=== PATIENT | female | born 1945 | race Caucasian/White ===

== ENCOUNTER → 2017-03-04 | Outpatient (REF) | payer MEDICARE, OTHER ==
[~2017-03-04] MED LIST: ADVAIR INH; ASPIRIN PO; DICY10EL OR; EFFE75CA75 OR; INHALER INH; PRIL20CA OR; SYNTHROID PO; VICO5TAB OR; ZOCO40TA OR; albuterol inhaler INH
[2017-03-04 16:38] LABS: BASO % 0.2 % (0.0-1.0); EOS % 0.1 % (0.0-3.0); LARGE UNSTAINED CELL # 0.1 K/mm3 (0.0-0.4); LARGE UNSTAINED CELL % 0.5 % (0.0-4.0); LYMPH # 0.6 K/mm3 (1.5-4.5); LYMPH % 5.9 % (24.0-44.0); MEAN CORPUSCULAR HEMOGLOBIN 30.7 pg (27.0-33.0); MEAN CORPUSCULAR HGB CONC 33.8 g/dl (32.0-36.5); MEAN CORPUSCULAR VOLUME 90.7 fl (80.0-96.0); MONO # 0.3 K/mm3 (0.0-0.8); MONO % 3.4 % (0.0-5.0); NEUTROPHILS # 8.4 K/mm3 (1.8-7.7); NEUTROPHILS % 89.9 % (36.0-66.0); PLATELET COUNT, AUTOMATED 194 k/mm3 (150-450); RED CELL DISTRIBUTION WIDTH 13.1 % (11.5-14.5); WHITE BLOOD COUNT 9.4 K/mm3 (4.0-10.0)
[2017-03-04 17:09] LABS: ERYTHROCYTE SEDIMENTATION RATE 7 mm/hr (0-30)
[2017-03-04 18:39] LABS: URIC ACID 3.8 MG/DL (2.6-6.0)
[2017-03-08 00:06] LABS: Lyme Disease IgG/IgM Antibodie <0.91 ISR (0.00-0.90); Lyme Disease IgM Ab Quantitati <0.80 index (0.00-0.79)
== END ==
LOC: M LABDRAW1 15:54
PROVIDERS: ATTEND Physician Assistant Surgical
DX: M17.12 Unilateral primary osteoarthritis, left knee (principal)

== ENCOUNTER → 2017-07-15 | Outpatient (CLI) | payer MEDICARE, OTHER ==
--- NOTE | 2017-07-15 11:28 | REPMRS ---
Patient History The patient states she has not had a clinical breast exam in over a year. Patient is postmenopausal. Family history of ovarian cancer in mother at age 66. Took hormonal contraceptives for 3 years. Took unspecified hormones for 8 years. Digital Mammo Screening Bilat: July 15, 2017 - Exam #: [id number] Bilateral CC and MLO view(s) were taken. Technologist: Maria Luz Polanco, Technologist Prior study comparison: June 23, 2016, digital woman screen mammo, performed at [facility]. July 09, 2015, bilateral digital mammo screening bilat performed at [facility]. June 14, 2014, bilateral bilat screen digital mammo, performed at [facility] ([facility]). June 01, 2013, bilateral bilat screen digital mammo, performed at [facility] ([facility]). FINDINGS: There are scattered fibroglandular densities. There has been no change in the appearance of the mammogram from the prior studies. There is a mild amount of residual fibroglandular tissue which is fairly symmetric. There is no interval development of dominant mass, architectural distortion, or clustered microcalcification suggestive of malignancy. There are bilateral benign arterial calcifications noted. Scattered lymph nodes are seen in the axillae. Large coarse benign appearing calcification is present on the left, unchanged. No significant changes when compared with prior studies. ASSESSMENT: BI-RADS/ACR category 2 mammogram. Benign finding(s). Recommendation Routine screening mammogram in 1 year (for women over age 40). This mammogram was interpreted with the aid of an FDA-approved computer-aided dectection system. A. Negative x-ray reports should not delay biopsy if a dominant or clinically suspicious mass is present. B. Four to eight percent of cancers are not identified by mammography. C. Adenosis and dense breast may obscure an underlying neoplasm. Electronically Signed By: Martín Fontenot MD 07/15/17 [id number]
== END ==
LOC: M RAD 09:29
PROVIDERS: ATTEND Internal Medicine
DX: Z12.31 Encounter for screening mammogram for malignant neoplasm of breast (principal); Z78.0 Asymptomatic menopausal state

== ENCOUNTER → 2017-12-29 | Outpatient (REF) | payer MEDICARE, OTHER ==
[2017-12-29 19:02] LABS: RHEUMATOID FACTOR QUANT < 10.0 IU/ML (<15.0)
[2017-12-29 19:21] LABS: VITAMIN B12 LEVEL 441 PG/ML (247-911)
[2018-01-04 00:06] LABS: CYCLIC CITRULLINATED PEPTIDE 5 units (0-19)
== END ==
LOC: M LAB REF 17:10
DX: R53.83 Other fatigue (principal); M25.50 Pain in unspecified joint
CPT/HCPCS: 82607

== ENCOUNTER 2018-02-16 19:35 | Emergency (ER) | payer MEDICARE, OTHER ==
[2018-02-16 20:43] LABS: HEMOGLOBIN 13.2 g/dl (12.0-15.5); MEAN CORPUSCULAR HEMOGLOBIN 30.9 pg (27.0-33.0); MEAN CORPUSCULAR HGB CONC 33.8 g/dl (32.0-36.5); MEAN CORPUSCULAR VOLUME 91.3 fl (80.0-96.0); PLATELET COUNT, AUTOMATED 141 10^3/uL (150-450); RED BLOOD COUNT 4.27 10^6/uL (4.00-5.40); RED CELL DISTRIBUTION WIDTH 12.6 % (11.5-14.5); WHITE BLOOD COUNT 8.3 10^3/uL (4.0-10.0)
[2018-02-16 20:44] LABS: ADD MANUAL DIFFER YES; DIFF SLIDE NUMBER 404; POSITIVE DIFF POS FLAG
[2018-02-16 21:10] LABS: LACTIC ACID SEPSIS PROTOCOL 0.8 MMOL/L (0.4-2.0)
[2018-02-16 21:12] LABS: ALBUMIN 3.2 GM/DL (3.2-5.2); ALBUMIN/GLOBULIN RATIO 1.07 (1.00-1.93); ALKALINE PHOSPHATASE 72 U/L (45-117); ALT/SGPT 17 U/L (12-78); ANION GAP 11 MEQ/L (8-16); AST/SGOT 17 U/L (7-37); BILIRUBIN,DIRECT 0.1 MG/DL (0.0-0.2); BILIRUBIN,TOTAL 0.5 MG/DL (0.2-1.0); BLOOD UREA NITROGEN 12 MG/DL (7-18); CALCIUM LEVEL 8.2 MG/DL (8.8-10.2); CARBON DIOXIDE LEVEL 25 MEQ/L (21-32); CHLORIDE LEVEL 102 MEQ/L (98-107); CPK CREATINE PHOSPHOKINASE 50 U/L (26-192); CREATININE FOR GFR 0.94 MG/DL (0.55-1.30); GLOMERULAR FILTRATION RATE > 60.0 (>39); GLUCOSE, FASTING 128 MG/DL (70-100); POTASSIUM SERUM 3.9 MEQ/L (3.5-5.1); SODIUM LEVEL 138 MEQ/L (136-145); TOTAL PROTEIN 6.2 GM/DL (6.4-8.2); TROPONIN I < 0.02 NG/ML (< 0.10)
[2018-02-16 21:13] LABS: CK-MB VALUE MASS < 1.0 NG/ML (<3.6)
[2018-02-16 21:15] LABS: ATYPICAL LYMPH 2 % (0-5); LYMPHOCYTES 4 % (16-52); MONOCYTES 3 % (0-8); NEUTROPHILS 91 % (35-75)
[2018-02-16 21:16] LABS: PLATELET ESTIMATE DECREASED (NORMAL)
[2018-02-16 21:17] LABS: TOXIC VACUOLATION 1+
[2018-02-16] MEDS: NS 1,000 ML IV (21:38)
[2018-02-16] MEDS: ACETAMINOPHEN 325 MG TAB PO (21:44)
== END 2018-02-16 23:17 | disposition home or self-care (01) ==
LOC: M ED 19:35
DX: G52.9 Cranial nerve disorder, unspecified (principal); J45.909 Unspecified asthma, uncomplicated; E78.5 Hyperlipidemia, unspecified; E03.9 Hypothyroidism, unspecified; K21.9 Gastro-esophageal reflux disease without esophagitis; Z79.899 Other long term (current) drug therapy; Z79.890 Hormone replacement therapy; Z79.82 Long term (current) use of aspirin
CPT/HCPCS: 71046

== ENCOUNTER 2018-03-08 12:43 | Emergency (ER) | payer MEDICARE, OTHER ==
[2018-03-08] MEDS: NS 1,000 ML IV (13:02)
[2018-03-08 13:27] LABS: BASO % 0.5 % (0.0-1.0); EOS % 0.2 % (0.0-3.0); HEMATOCRIT 39.6 % (36.0-47.0); HEMOGLOBIN 13.3 g/dl (12.0-15.5); IMMATURE GRANULOCYTE % 0.5 % (0-3.0); LYMPH % 2.5 % (24.0-44.0); MEAN CORPUSCULAR HEMOGLOBIN 30.1 pg (27.0-33.0); MEAN CORPUSCULAR HGB CONC 33.6 g/dl (32.0-36.5); MEAN CORPUSCULAR VOLUME 89.6 fl (80.0-96.0); MONO # 0.4 10^3/uL (0.0-0.8); MONO % 6.1 % (0.0-5.0); NEUTROPHILS # 5.5 10^3/uL (1.8-7.7); NEUTROPHILS % 90.2 % (36.0-66.0); PLATELET COUNT, AUTOMATED 139 10^3/uL (150-450); RED BLOOD COUNT 4.42 10^6/uL (4.00-5.40); RED CELL DISTRIBUTION WIDTH 12.8 % (11.5-14.5); WHITE BLOOD COUNT 6.1 10^3/uL (4.0-10.0)
[2018-03-08] MEDS: ONDANSETRON 4MG/2ML VIAL (J2405) IV (13:35)
[2018-03-08] MEDS: GASTROGRAFIN SOLUTION 30ML PO ×2 (13:35→14:10)
[2018-03-08 13:51] LABS: ALBUMIN 3.1 GM/DL (3.2-5.2); ALBUMIN/GLOBULIN RATIO 0.91 (1.00-1.93); ALKALINE PHOSPHATASE 48 U/L (45-117); ALT/SGPT 19 U/L (12-78); ANION GAP 7 MEQ/L (8-16); AST/SGOT 34 U/L (7-37); BILIRUBIN,DIRECT < 0.1 MG/DL (0.0-0.2); BILIRUBIN,TOTAL 0.5 MG/DL (0.2-1.0); BLOOD UREA NITROGEN 6 MG/DL (7-18); CALCIUM LEVEL 8.6 MG/DL (8.8-10.2); CARBON DIOXIDE LEVEL 27 MEQ/L (21-32); CHLORIDE LEVEL 103 MEQ/L (98-107); CREATININE FOR GFR 0.95 MG/DL (0.55-1.30); GLOMERULAR FILTRATION RATE > 60.0 (>39); GLUCOSE, FASTING 107 MG/DL (70-100); LIPASE 105 U/L (73-393); POTASSIUM SERUM 3.9 MEQ/L (3.5-5.1); SODIUM LEVEL 137 MEQ/L (136-145); TOTAL PROTEIN 6.5 GM/DL (6.4-8.2)
[2018-03-08 14:07] LABS: LYMPH # 0.2 10^3/uL (1.5-4.5); POSITIVE DIFF POS FLAG
[2018-03-08] MEDS ORDERED: ISOVUE-370 76% 100ML VIAL (Q9967) As Ordered (15:21)
[2018-03-08] MEDS: ACETAMINOPHEN TAB 650MG DOSE (2X325MG) PO (16:12)
[2018-03-08] MEDS: metroNIDAZOLE (FLAGYL) 500 MG TAB PO (17:00)
[2018-03-08] MEDS: CIPROFLOXACIN 500 MG TAB PO (17:00)
== END 2018-03-08 18:00 | disposition home or self-care (01) ==
LOC: M ED 12:43
DX: K52.9 Noninfective gastroenteritis and colitis, unspecified (principal); E78.5 Hyperlipidemia, unspecified; J44.9 Chronic obstructive pulmonary disease, unspecified; K21.9 Gastro-esophageal reflux disease without esophagitis; F41.9 Anxiety disorder, unspecified; F32.9 Major depressive disorder, single episode, unspecified; K57.30 Diverticulosis of large intestine without perforation or abscess without bleeding; Z79.82 Long term (current) use of aspirin; Z79.899 Other long term (current) drug therapy
CPT/HCPCS: Q9963

== ENCOUNTER → 2018-07-17 | Outpatient (CLI) | payer MEDICARE, OTHER | LOC: M RAD 08:34 | DX: Z12.31 Encounter for screening mammogram for malignant neoplasm of breast (principal); Z92.0 Personal history of contraception; Z92.29 Personal history of other drug therapy; Z80.41 Family history of malignant neoplasm of ovary | CPT/HCPCS: 77067 ==

== ENCOUNTER → 2020-02-25 | Outpatient (REF) | payer MEDICARE, OTHER ==
[~2020-02-25] MED LIST changes: +CIPR-249 PO; +DICY10CA13; +FLAG500T PO; +LOSARTAN-HCTZ; +PRIM50TA6; +SYNT50TA; +VALS40TA9; +ZOFR4TAB14 PO
== END ==
LOC: M LAB REF 14:45
PROVIDERS: ATTEND Physician Assistant Medical
DX: J02.9 Acute pharyngitis, unspecified (principal)

== ENCOUNTER 2020-08-13 01:23 | Observation (INO) | payer MEDICARE, OTHER ==
[~2020-08-13] VITALS: Ht 160 cm; Wt 91.0 kg
[~2020-08-13 01:23] MED LIST changes: -SYNT50TA; +SYNT50TA PO; -ZOCO40TA OR; +ZOCO40TA PO
[2020-08-13 03:05] LABS: HEMATOCRIT 42.8 % (36.0-47.0); HEMOGLOBIN 13.5 g/dl (12.0-15.5); MEAN CORPUSCULAR HEMOGLOBIN 29.7 pg (27.0-33.0); MEAN CORPUSCULAR HGB CONC 31.5 g/dl (32.0-36.5); MEAN CORPUSCULAR VOLUME 94.1 fl (80.0-96.0); PLATELET COUNT, AUTOMATED 173 10^3/uL (150-450); RED BLOOD COUNT 4.55 10^6/uL (4.00-5.40); WHITE BLOOD COUNT 5.3 10^3/uL (4.0-10.0)
--- NOTE | 2020-08-13 03:11 | REPVR ---
PROCEDURE INFORMATION: Exam: CT Head Without Contrast Exam date and time: 08/13/2020 2:19 AM Age: 75 years old Clinical indication: Dizziness; Additional info: Vertigo TECHNIQUE: Imaging protocol: Computed tomography of the head without contrast. Radiation optimization: All CT scans at this facility use at least one of these dose optimization techniques: automated exposure control; mA and/or kV adjustment per patient size (includes targeted exams where dose is matched to clinical indication); or iterative reconstruction. COMPARISON: CT Head without contrast 09/30/2013 9:33 AM FINDINGS: Brain: There is slight prominence of the peripheral sulci. The magallanes and white matter is within normal limits. Cerebral ventricles: There is slight prominence of the central ventricular system. Bones/joints: Unremarkable. No acute fracture. Paranasal sinuses: Visualized sinuses are unremarkable. No fluid levels. Mastoid air cells: Visualized mastoid air cells are well aerated. Soft tissues: Unremarkable. IMPRESSION: There has been little change from 09/30/2013 with minimal atrophic change. No acute interval intracranial process is identified. Electronically signed by: Patrick Staley On 08/13/2020 03:11:09 AM
[2020-08-13 03:46] LABS: ALBUMIN 3.6 GM/DL (3.2-5.2); ALT/SGPT 21 U/L (12-78); BILIRUBIN,TOTAL 0.5 MG/DL (0.2-1.0); BLOOD UREA NITROGEN 15 MG/DL (7-18); CALCIUM LEVEL 8.7 MG/DL (8.8-10.2); CARBON DIOXIDE LEVEL 26 MEQ/L (21-32); CHLORIDE LEVEL 109 MEQ/L (98-107); CREATININE FOR GFR 0.86 MG/DL (0.55-1.30); GLOMERULAR FILTRATION RATE > 60.0 (>39); GLUCOSE, FASTING 105 MG/DL (70-100); POTASSIUM SERUM 3.5 MEQ/L (3.5-5.1); SODIUM LEVEL 141 MEQ/L (136-145); TOTAL PROTEIN 6.4 GM/DL (6.4-8.2)
[2020-08-13] MEDS ORDERED: CETACAINE SPRAY 5GM As Ordered ONE (05:57)
[2020-08-13] MEDS ORDERED: Physical Therapy (06:11)
[2020-08-13] MEDS: ADVAIR HFA 230/21MCG INHALER INH SCH ×2 (08:00→19:48)
[2020-08-13] MEDS ORDERED: ONDANSETRON 4MG/2ML VIAL IV ONE (08:15)
[2020-08-13] MEDS ORDERED: MECLIZINE 25 MG TABLET PO ONE (12:15)
[2020-08-13] MEDS ORDERED: PROP10TA56 PO (13:26)
[2020-08-13] MEDS ORDERED: ESCI20TA PO (13:26)
[2020-08-13] MEDS ORDERED: ADV250INH INH (13:26)
[2020-08-13] MEDS ORDERED: CALC-358 PO (13:26)
[2020-08-13] MEDS ORDERED: CULT10CA4 PO (13:28)
[2020-08-13] MEDS ORDERED: ASCO500T PO (13:28)
[2020-08-13] MEDS ORDERED: AIRB1CHW PO (13:28)
[2020-08-13 13:34] LABS: RSV AMPLIFICATION NEGATIVE (NEGATIVE)
[2020-08-13] MEDS ORDERED: SIMVASTATIN 20 MG TAB PO ONE (14:00)
--- NOTE | 2020-08-13 14:10 | HPE ---
HISTORY AND PHYSICAL DATE OF ADMISSION: 08/13/2020 CHIEF COMPLAINT: Vertigo. HISTORY: Patient, a 75-year-old woman, was in her usual state of health until yesterday. She visited her massage therapist. As she repositioned rolling over on the cot, she did experience intense vertigo, which was short lived, not associated with headache, numbness, tingling, nausea. She was able to drive herself home and remained essentially asymptomatic until early hours this morning and developed vertigo again with rolling over. Came to the emergency department (ED) for evaluation and was evaluated and treated in the ED by Dr. Dunn. When the patient was unable to demonstrate after physical therapy attempt at otolith repositioning/Aicha-Hallpike maneuvers to achieve demonstration of safe ambulation, decision was made to admit patient for observation with continued attempt by physical therapy to achieve resolution of her symptoms before discharge home. MEDICAL HISTORY: Her current primary care physician (PCP) is Dr. Dinah Nunez. CURRENT MEDICATIONS: - Lexapro 20 mg a day - levothyroxine 50 mcg a day - propranolol immediate release 10 mg twice a day - Advair 250/50 one inhalation twice a day - simvastatin 40 mg daily Presumably, diagnoses include chronic obstructive pulmonary disease (COPD)/asthma, hypercholesterolemia, hypothyroidism, and anxiety/depression. PAST SURGICAL HISTORY: 1. Hysterectomy, presumably for benign disease. 2. 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 That surgery was performed in 2010. PAST MEDICAL HISTORY: 1. History of gastroesophageal reflux disease (GERD). 2. COPD. 3. Depression. FAMILY HISTORY: Noncontributory at this time. REVIEW OF SYSTEMS: She has no headache, no nausea, no change in vision, no numbness, no extremity weakness. No cough, chest pain, nausea, vomiting, diarrhea. No joint pains. No skin rashes. No recent falls or head injuries. No history of transient ischemic attack (TIA) or stroke. No history of myocardial infarction (MS). PHYSICAL EXAMINATION: Vital signs: Blood pressure 125/58, pulse 69 and regular, respiratory rate is 18. Oxygen saturation is 92% on room air. HEENT: Normocephalic, atraumatic. Pupils equal, round and reactive to light. Oropharynx shows no mucosal lesions. There is no neck mass. No thyroid enlargement is noted. No bruits are heard. Lungs show equal expansion without wheezing, rales, or rhonchi. Heart regular rate and rhythm. A 1/6 systolic murmur noted at the base without radiation. Abdomen obese, nontender. No mass or guarding. Extremities s how no edema. No calf tenderness. Full range of motion. Neurologic: She is alert, oriented, pleasant, cooperative. Speech is clear. Facies symmetric. Vertigo is demonstrated to be induced by rotatory movements earlier today. Manager Talent are equal. She sits unaided with no tilting as long as she moves slowly. Reflexes are physiologic with downgoing toes bilaterally. Sensory examination is unremarkable. LABORATORY DATA: So far, serology shows negative CoV-2, negative influenza A and B screen. Chemistries show electrolytes are remarkable only for a slightly elevated chloride at 109, anion gap of 9, glucose 105. TSH was 4.680. Hemoglobin 13.5, white count 5300. Differential was not requested. IMAGING: Shows brain CT with no change. Minimal atrophic changes from a study done in 2014. IMPRESSION: Movement-triggered vertigo that is brief in nature consistent with benign paroxysmal positional vertigo. Since when she made an attempt to stand she tilted backward, it was deemed unsafe for her to go home unaccompanied. Therefore, admission to observation status is recommended. Patient is agreeable. Patient will be admitted to hospitalist service. Dr. Stout.
[2020-08-13 16:00] VITALS: BP 134/80
[2020-08-13] MEDS: ACETAMINOPHEN 325 MG TAB PO PRN (18:41)
[2020-08-13 22:00] VITALS: BP 133/79
[2020-08-14 06:00] VITALS: BP 141/73
[2020-08-14] MEDS ORDERED: LEVOTHYROXINE 50MCG TABLET (0.05MG) PO SCH (06:00)
[2020-08-14 06:47] LABS: HEMATOCRIT 41.8 % (36.0-47.0); MEAN CORPUSCULAR HGB CONC 31.1 g/dl (32.0-36.5); MEAN CORPUSCULAR VOLUME 96.5 fl (80.0-96.0); PLATELET COUNT, AUTOMATED 149 10^3/uL (150-450); RED BLOOD COUNT 4.33 10^6/uL (4.00-5.40); WHITE BLOOD COUNT 3.5 10^3/uL (4.0-10.0)
[2020-08-14 07:33] LABS: CALCIUM LEVEL 8.7 MG/DL (8.8-10.2); CREATININE FOR GFR 1.01 MG/DL (0.55-1.30); FREE THYROXINE INDEX 3.2 % (1.3-4.8); POTASSIUM SERUM 4.2 MEQ/L (3.5-5.1); THYROID STIMULATING HORMONE 1.47 uIU/ML (0.358-3.740); THYROXINE (T4) 8.2 UG/DL (4.5-12.0)
[2020-08-14] MEDS: ADVAIR HFA 230/21MCG INHALER INH SCH (08:44)
[2020-08-14] MEDS ORDERED: PROPRANOLOL 10 MG TAB PO SCH (09:00)
[2020-08-14] MEDS ORDERED: ESCITALOPRAM OXALATE 10 MG TAB (LEXAPRO) PO SCH (09:00)
[2020-08-14] MEDS: ACETAMINOPHEN 325 MG TAB PO PRN (09:29)
[2020-08-14 09:46] VITALS: BP 141/73
[2020-08-14] MEDS ORDERED: MECLIZINE 25 MG TABLET PO PRN (11:15)
[2020-08-14] MEDS ORDERED: MECL-86 PO (12:04)
--- NOTE | 2020-08-14 13:07 | DS.PDOC ---
Discharge Summary General Date of Admission Aug 13, 2020 at 01:24 Date of Discharge 08/14/20 Discharge Summary PROCEDURES PERFORMED DURING STAY: [None]. ADMITTING DIAGNOSES: Vertigo SECONDARY DIAGNOSES: GERD COPD Depression COMPLICATIONS/CHIEF COMPLAINT: Vertigo. HOSPITAL COURSE: 75-year-old female admitted for episodes of vertigo with associated symptoms of headache and nausea. On evaluation in the ED, her symptoms persisted and she was admitted for observation with physical therapy consultation. Patient was seen and evaluated by physical therapy with recommendations for outpatient follow-up with neurology. DISCHARGE MEDICATIONS: Please see below. ALLERGIES: Please see below. PHYSICAL EXAMINATION ON DISCHARGE: VITAL SIGNS: Please see below. GENERAL: NAD, lying comfortably in bed HEENT: NC/AT, EOMI Lungs: CTA B/L Heart: +S1S2, RRR Abd: soft, NT, +BS Ext: no edema LABORATORY DATA: Please see below. ACTIVITY: [As tolerated]. DISPOSITION: Discharge home with PT DISCHARGE INSTRUCTIONS: 1. Follow up with PCP in 3-5 days. 2. Follow up with neurology in 3-7 days. 3. PT as instructed DISCHARGE CONDITION: [Stable]. TIME SPENT ON DISCHARGE: 35 minutes. Vital Signs/I&Os Vital Signs Date Time Temp Pulse Resp B/P (MAP) Pulse Ox O2 Delivery O2 Flow Rate FiO2 08/14/20 09:46 75 141/73 08/14/20 06:00 97.8 18 99 Room Air I&O- Last 24 Hours up to 6 AM 08/14/20 06:00 Intake Total 600 ml Output Total 0 ml Balance 600 ml Laboratory Data Labs 24H Laboratory Tests 2 08/14/20 06:33: Nucleated Red Blood Cells % (auto) 0.0, Anion Gap 1L, Glomerular Filtration Rate 57.0, Calcium Level 8.7L, Thyroid Stimulating Hormone (TSH) 1.470, Free Thyrox ine Index 3.2, Thyroxine (T4) 8.2, Triiodothyronine (T3) Uptake 39 08/14/20 09:24: Bedside Glucose (Misc Panel) 102 CBC/BMP Laboratory Tests 08/14/20 06:33 FSBS Laboratory Tests Test 08/14/20 09:24 Range/Units Bedside Glucose (Misc Panel) 102 83-110 MG/DL Discharge Medications Scheduled Ascorbic Acid (Ascorbic Acid) 500 Mg Tablet, 500 MG PO DAILY, (Reported) Calcium Carbonate/Vitamin D3 (Calcium 500 mg-Vit D3 5 Mcg Tb) 500 Mg-200 Tablet, 1 EACH PO QHS, (Reported) Escitalopram Oxalate (Escitalopram Oxalate) 20 Mg Tablet, 20 MG PO DAILY, (Reported) Lactobacillus Rhamnosus GG (Culturelle) 1 Each Capsule, 1 CAP PO DAILY, (Reported) Levothyroxine Sodium (Synthroid) 50 Mcg Tab, 50 MCG PO DAILY, (Reported) Mv-Min/Vit C/Glut/Lysine/Hc124 (Airborne Tablet Chewable) 1 Each Tab.chew, 1 CHW PO DAILY, (Reported) Propranolol HCl (Propranolol HCl) 10 Mg Tablet, 10 MG PO BID, (Reported) Salmeterol/Fluticasone (Advair 250-50 Diskus) 1 Each Blst.w.dev, 1 PUFF INH BID, (Reported) Simvastatin (Zocor) 40 Mg Tab, 40 MG PO QHS, (Reported) Scheduled PRN Meclizine HCl (Meclizine HCl) 25 Mg Tablet, 25 MG PO Q6HP PRN for dizziness Allergies Coded Allergies: No Known Drug Allergies (Verified Allergy, Unknown, 08/13/20) EVETTE BRICENO MD Aug 14, 2020 13:07
[2020-08-14 14:00] VITALS: BP 123/67
== END 2020-08-14 15:30 | disposition home or self-care (01) ==
LOC: M ED 01:23 → M ED INP 01:24 → M MS5PR 15:10
PROVIDERS: ADMIT Family Medicine; ATTEND Internal Medicine
DX: R42 Dizziness and giddiness (principal); K21.9 Gastro-esophageal reflux disease without esophagitis; J44.9 Chronic obstructive pulmonary disease, unspecified; E03.9 Hypothyroidism, unspecified; E78.00 Pure hypercholesterolemia, unspecified; F41.9 Anxiety disorder, unspecified; F32.9 Major depressive disorder, single episode, unspecified; Z79.899 Other long term (current) drug therapy
CPT/HCPCS: 36415; 70450; 80048; 80053; 83735; 84436; 84443; 84479; 85027; 87631; 94640; 94664; 96374; 97112; 97116; 97161; 97530; 99285; G0378; J2405

== ENCOUNTER → 2021-06-01 | Outpatient (REF) | payer MEDICARE, OTHER ==
[~2021-06-01] MED LIST changes: +ADV250INH INH; +AIRB1CHW PO; +ASCO500T PO; +CALC-358 PO; +CULT10CA4 PO; +ESCI20TA16 PO; +MECL-86 PO; +PROP10TA56 PO; +Physical Therapy
[2021-06-01 17:50] LABS: AMORPHOUS SEDIMENT MODERATE (NEGATIVE); APPEARANCE, URINE TURBID (CLEAR); BACTERIA, URINE AUTO NEGATIVE (NEGATIVE); BILIRUBIN, URINE AUTO NEGATIVE (NEGATIVE); BLOOD, URINE BLOOD NEGATIVE (NEGATIVE); COLOR, URINE YELLOW (YELLOW); GLUCOSE, URINE (UA) AUTO NEGATIVE (NEGATIVE); KETONE, URINE AUTO NEGATIVE (NEGATIVE); LEUKOCYTE ESTERASE, URINE AUTO 2+ (NEGATIVE); NITRITE, URINE AUTO NEGATIVE (NEGATIVE); PROTEIN, URINE AUTO NEGATIVE (NEGATIVE); RBC, URINE AUTO 0 /HPF (0-3); SQUAMOUS EPITHELIAL CELL UR AU 3 /HPF (0-6); TRANSITIONAL EPITHELIAL AUTO 1 /HPF; UROBILINOGEN, URINE AUTO 0.2 mg/dL (0.0-2.0); WBC, URINE AUTO 2 /HPF (0-3)
== END ==
LOC: M LAB REF 17:03
PROVIDERS: ATTEND Internal Medicine
DX: Z01.818 Encounter for other preprocedural examination (principal)

== ENCOUNTER 2021-06-15 19:10 | Inpatient (IN) | payer MEDICARE, OTHER ==
[~2021-06-15] VITALS: Ht 160 cm; Wt 89.9 kg
--- OUTSIDE RECORDS SUMMARY | 2021-06-15 19:16 | CCD ---
Author Author Adis Rojas MD [facility] Organization Adis Rojas MD [facility] Address [phone] [address] Phone Care Team Providers Care Scrip Clerk Name Role Phone Dinah Nunez DO PP [phone] Casimiro MUROBright Unavailable [phone] Reason for Referral No Reason for Referral Recorded Problems Includes: Active, inactive, and resolved Problems All Visits Onset Date - Time Resolved Date - Time Provider Co ndition Status Dermatochalasis Right Upper Eyelid 11/10/2018 - 12:00AM 01/15/20 20 - 9:53AM Bright Kirkpatrick DO Resolved Dermatochalasis Left Upper Eyelid 11/10/2018 - 12:00AM 0 - 9:53AM Bright Kirkpatrick DO 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 Perla Rojas MD, FACS Friedman's palsy Future Appointments Date Time Location Provider 1 Year Follow-Up 02/09/2022 9:15AM Adis Rojas MD [facility] Adis Rojas MD, FACS Findings Encounter Date Requested Referred to: Dr. Duncan EVALUATION WITH DE C with Adis Rojas MD, FACS 10/10/2018 Assessments Includes: Assessments for all patient encounters Findings Encounter Date Dry eye syndrome 1 Year Follow-Up with Bright Casimiro DO 01/15/2020 Nuclear senile cataract 1 Year Follow-Up with Bright Koko ein DO 01/15/2020 Vitreous degeneration 1 Year Follow-Up with Bright Tiastei n DO 01/15/2020 Friedman's palsy 1 Year Follow-Up with Bright Casimiro DO 11/10/2018 Dermatochalasis of the left upper eyelid 1 Year Follow -Up with Bright Casimiro DO 11/10/2018 Dermatochalasis of the right upper eyelid 1 Year Follo w-Up with Bright Casimiro DO 11/10/2018 Dry eye syndrome 1 Year Follow-Up with Bright Casimiro DO 11/10/2018 Nuclear senile cataract 1 Year Follow-Up with Bright Koko marroquin DO 11/10/2018 Ptosis of eyelid 1 Year Follow-Up with Bright Casimiro DO 11/10/2018 Vitreous degeneration 1 Year Follow-Up with Bright Kokoei n DO 11/10/2018 Friedman's palsy EVALUATION WITH DEC with Adis Ingram MD, FACS 10/10/2018 Dry eye syndrome of both eyes EVALUATION WITH DEC with Adis Rojas MD, FACS 10/10/2018 Ptosis of eyelid EVALUATION WITH DEC with Adis Ingram MD, FACS 10/10/2018 Dry eye syndrome NEW PATIENT WITH REFERRAL with Bright ward DO 11/08/2017 Nuclear senile cataract NEW PATIENT WITH REFERRAL with Tawny wilda Casimiro DO 11/08/2017 Vitreous degeneration NEW PATIENT WITH REFERRAL with Bright Casimiro DO 11/08/2017 Instructions Instructions not supported for this document typeNo Instructions Recorded Medical Equipment - Implanted Devices Includes: Current and historical DevicesNo Medical Equipment Recorded Medications Includes: Current and historical Medications Current Medications (continue as prescribed) Simvastatin 40MG Oral Tablet 11/08/2017 Provider: Diagnosis: Synthroid 50MCG Oral Tablet 11/08/2017 Provider: Diagnosis: Oyster Shell Calcium 500MG Oral Tablet 11/08/2017 P rovider: Diagnosis: Advair Diskus 250-50MCG/DOSE Inhalation Aerosol Powder Breath Activated 11/08/2017 Provider: Diagnosis: Lexapro 20MG Oral Tablet 11/08/2017 Provider: Diagnosis: Past Medications on file Propranolol HCl 40MG Oral Tablet 10/10/2018 - 02/05/2021 Pro vider: Diagnosis: Dicyclomine HCl 10MG Oral Capsule, conventional 11/08/2017 - 02/05/2021 Provider: Diagnosis: Propranolol HCl 20MG Oral Tablet 11/08/2017 - 10/10/2018 Pro vider: Diagnosis: EQL Air Protector Oral Tablet, effervescent 11/08/2017 - 12/2018 Provider: Diagnosis: Valsartan 80MG Oral Tablet 11/08/2017 - 10/10/2018 Provider: Diagnosis: L-Lysine HCl 500MG Oral Tablet 11/08/2017 - 10/10/2018 Provi sharon: Diagnosis: Medications Administered Includes: Administered Medications in patient's chartNo Administered Medications Recorded Vital Signs Includes: Vital Signs from 03/19/2020 through 03/19/2021No Vital Signs Recorded For Specified Dates Results Includes: Results from 03/19/2020 through 03/19/2021No Results Recorded For Specified Dates History of Present Illness History of Present Illness not supported for this document typeNo History of Present Illness Recorded Social History Description Last Updated Tobacco non-user 02/05/2021 Alcohol 2 a week 02/05/2021 No tobacco use 02/05/2021 Not using drugs 2 a week 02/05/2021 Smoking status : Never smoker 02/05/2021 Procedures and Surgical History Surgical History Last Updated 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 Duncan 201802/05/2021 Surgical / procedural history Hysterectomy 1971, Morg ani Hernia 2014 02/05/2021 Medical History Includes: Medical History in patient's chart Description Last Updated Currently wearing eyeglasses 02/05/2021 History of arthritis 02/05/2021 History of asthma 02/05/2021 History of hyperlipidemia 02/05/2021 History of hypertension 02/05/2021 History of hypothyroidism 02/05/2021 Recent change in medical history Brow&Lid lift OU by Dr. Duncan 201802/05/2021 Reported medical history Depression 02/05/2021 Family History Includes: Family History in patient's chart Description Last Updated Fraternal history of heart disease 02/05/2021 Fraternal history of stroke/cerebrovascular accident 0 02/05/2021 Maternal history of arthritis 02/05/2021 Maternal history of family history of cancer Maternal history of hypertension 02/05/2021 Paternal history of heart disease 02/05/2021 Paternal history of stroke/cerebrovascular accident Sororal history of multiple sclerosis 02/05/2021 Review of Systems Review of Systems not supported for this document typeNo Review of Systems Recorded Mental Status Mental Status not supported for this document type Description Oriented to time, place, and person Functional Status Functional Status not supported for this document typeNo Functional Status Recorded Physical Exam Physical Exam not supported for this document typeNo Physical Exam Recorded Immunizations Includes: Immunizations in patient's chartNo Immunizations Recorded Allergies Includes: Active, inactive, and resolved AllergiesNo Known Allergies Encounters Includes: Encounters from 03/19/2020 through 03/19/2021 Encounter Provider Location Date Check-In Time Check-Out Time D iagnosis 1 Year Follow-Up Bright Ferguson MD [facility] 08/2020 12:47PM 1:49PM Insurance Includes: Active Insurance Policies Plan Name Member ID Group # Subscriber Relationship Effective Da guadalupe 1 - Medicare Part [facility] ([facility] [place] [id number] November Arnaldo Self 2 - FOR LIFE ([employer]) [id number] November Arnaldo Se lf Advance Directives Includes: Current Advance DirectivesNo Advance Directives Recorded Health Concerns Includes: Active Health ConcernsNo Active Health Concerns Recorded Goals Includes: Active GoalsNo Active Goals Recorded Interventions Includes: Interventions for active GoalsNo Interventions Recorded Evaluations & Outcomes Includes: Evaluations & Outcomes for active GoalsNo Outcomes Recorded
--- OUTSIDE RECORDS SUMMARY | 2021-06-15 19:16 | CCD ---
Author Author Adis Rojas MD [facility] Organization Adis Rojas MD [facility] Address [address] [address] Phone Care Team Providers Care Chief Power Dispatcher Name Role Phone Dinah Nunez DO PP [phone] Casimiro Bright Unavailable [phone] Reason for Referral No Reason for Referral [...] - 12:00AM 01/15/2020 - 9:53AM Bright Olson [facility] Resolved Cataract Senile Nuclear 11/08/2017 - 12:00AM Bright Olson [facility] Active Dry Eye Syndrome 11/08/2017 - 12:00AM Bright oquendo DO Active Vitreous Disorders Degeneration 11/08/2017 - 12:00AM Willis Kirkpatrick DO Active Plan of Treatment Referrals To Diagnosis Referral to Dr. Perla Rojas MD, FACS Friedman's palsy Future Appointments Date Time Location Provider 1 Year Follow-Up 02/09/2022 9:15AM Adis Rojas MD [facility] Adis Rojas MD, FACS Findings Encounter [...] eyelid 1 Year Follow -Up with Bright Casmiiro DO 11/10/2018 Dermatochalasis of the right upper [...] Recorded Vital Signs Includes: Vital Signs from 04/10/2020 through 04/10/2021No Vital Signs Recorded For Specified Dates Results Includes: Results from 04/10/2020 through 04/10/2021No Results Recorded For Specified Dates History of Present Illness History of Present Illness not supported for this document typeNo History of Present Illness Recorded Social History Description Last Updated Tobacco non-user 02/05/2021 Alcohol 2 a week 01/15/2020 No tobacco use 01/15/2020 Not using drugs 2 a week 01/15/2020 Smoking status : Never smoker 01/15/2020 Procedures and Surgical History Surgical History Last Updated 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 Duncan 201801/15/2020 Surgical / procedural history Hysterectomy 1971, Morg ani Hernia 2014 01/15/2020 Medical History Includes: Medical History in patient's chart Description Last Updated Recent change in medical history Brow&Lid lift OU by Dr. Duncan 201801/15/2020 Currently wearing eyeglasses 01/15/2020 History of arthritis 01/15/2020 History of asthma 01/15/2020 History of hyperlipidemia 01/15/2020 History of hypertension 01/15/2020 History of hypothyroidism 01/15/2020 Reported medical history Depression 01/15/2020 Family History Includes: Family History in patient's chart Description Last Updated Fraternal history of heart disease 01/15/2020 Fraternal history of stroke/cerebrovascular accident 0 01/15/2020 Maternal history of arthritis 01/15/2020 Maternal history of family history of cancer 0 Maternal history of hypertension 01/15/2020 Paternal history of heart disease 01/15/2020 Paternal history of stroke/cerebrovascular accident Sororal history of multiple sclerosis 01/15/2020 Review of Systems Review of Systems not [...] AllergiesNo Known Allergies Encounters Includes: Encounters from 04/10/2020 through 04/10/2021 Encounter Provider Location Date Check-In Time Check-Out Time D iagnosis 1 Year Follow-Up Bright Ferguson MD [facility] 08/2020 12:47PM 1:49PM Insurance Includes: Active Insurance Policies Plan Name Member ID Group # Subscriber Relationship Effective Da guadalupe 1 - Medicare Part B [facility] ([facility]) [id number] November Arnaldo Self 2 - FOR LIFE ([employer]) [id number] November Arnaldo Se lf Advance Directives Includes: Current Advance DirectivesNo Advance Directives Recorded Health Concerns Includes: Active Health ConcernsNo Active Health Concerns Recorded Goals Includes: Active GoalsNo Active Goals Recorded Interventions Includes: Interventions for active GoalsNo Interventions Recorded Evaluations & Outcomes Includes: Evaluations & Outcomes for active GoalsNo Outcomes Recorded
--- OUTSIDE RECORDS SUMMARY | 2021-06-15 19:16 | CCD | Continuity of Care Document ---
Author Author RUBY November Organization Unknown Address [address] [address] Phone [phone] Care Team Providers Care Long Term Acute Care Registered Nurse Name Role Phone Dinah Nunez DO AUTM Unavailable Santos Sidhu DO AUTM [phone] María Elena Catalan PA-C AUTM [phone] Mehrdad Kirkpatrick MD AUTM [phone] Adis Rojas MD AUTM [phone] Problems Active Problems Provider Date Irritable bowel syndrome Dinah Nunez DO Onset: 12/27/19 13 Hypothyroidism Dinah Nunez DO Onset: 12/26/2012 Social History Type Date Description Comments Sex Unknown ETOH Use Rarely consumes alcohol Tobacco Use Start: Unknown Patient has never smoked Allergies and adverse reactions Description No Known Drug Allergies Medications Active Medications SIG Qnty Indications Ordering Provide r Date Saline Nasal [place] 0.65% Solution 3-4x/d as directed 1units Jenelle Mayo M.D. 08/27/19 21 Meclizine HCL 25mg Tablets one tab by mouth every 8 hours as needed for dizziness 30tabs Иван Nunez DO 08/18/2020 Nystatin 366800Qhpr/GM Cream apply to affected area twice a day 15gm Dinah Nunez DO 2019 Multivitamin Gummies Womens Chewt abs 2 by mouth every day Dinah Nunez DO 12/18/2018 Turmeric one daily Nurse #2 11/14/[address] [facility] Digestive Health Probiotic Capsules 1 by mouth every day Dinah Nunez DO 04/06 Vitamin B-12 Tablets Sub 1 by mouth every day Dinah Nunez,DO 04/06/2018 Lexapro 20mg Tablets 1 by mouth every day 90tabs Dinah Nunez,DO 06/16/2017 Levothyroxine Sodium 50mcg Tablets 1 by mouth every day 90tabs Dinah Nunez,DO 01/25/2017 Albuterol Sulfate (2 .5mg/3ML) 0.083% Nebulizer use via aerosol neb four times a day as needed 180units Dinah Nunez,DO 07/05/2016 Advair Diskus 250-50mcg/Dose Aeros ol 1 puff twice a day 3units Dinah Nunez,DO 06/30/2016 Ventolin HFA 108(90Base) mcg/Act A erosol 2 puffs four times a day as needed 54gm Dinah Nunez,DO 11/13/2012 Oyster Shell Calcium 500 + D [id number] Tablets 1 by mouth every day 3bottles Dinah Nunez,DO 06/09 Simvastatin 40mg Tablets 1 by mouth at bedtime 90tabs Dinah Nunez,DO 06/09/2011 CBD Oil 1/2 Drop Nightly Unknown Medications Administered in Office Medication SIG Qnty Indications Ordering Provider Date Covid-19 vaccine, Unspecified Inj ection Unknown 09/18/2020 Covid-19 vaccine, Unspecified Inj ection Unknown 08/21/2020 Administration Of Flu Vaccine Inj ection JOAQUIN Michaels 05/21/2004 Immunizations CPT Code Status Date Vaccine Lot # U-Flu Given 04/17/2020 Influenza,Unspecified U-Flu Given 05/31/2019 Influenza,Unspecified 26449 Given 09/29/2018 Shingrix Zoster Vaccine (HZV), Recombinant, Subunit, Adjuvanted 76793 Given 07/26/2018 Shingrix Zoster Vaccine (HZV), Recombinant, Subunit, Adjuvanted U-Flu Given 05/22/2018 Influenza,Unspecified U-PneuC Given 05/27/2017 Prevnar 13 U-Pneum Given 06/23/2016 Pneumococcal,Unspecified 74623 Given 05/21/2004 Influenza Virus Vaccine [id number] Refused 05/29/2019 Influenza Vaccin e Quadrivalent Preser/Antibiotic Free Im Use 25514 Refused 05/12/2018 Influenza Virus Vaccine, Quadrivalent (Cciiv4), Derived From Cell Vital Signs Date Vital Result Comment 06/01/2021 11:16am BP Systolic 126 mmHg BP Diastolic 70 mmHg Heart Rate 79 /min Height 64 inches 5'4" Weight 196.00 lb BMI (Body Mass Index) 33.6 kg/m2 03/05/2021 1:29pm BP Systolic 128 mmHg BP Diastolic 64 mmHg Heart Rate 72 /min Height 64 inches 5'4" Weight 201.12 lb O2 % BldC Oximetry 96 % RM Air BMI (Body Mass Index) 34.5 kg/m2 Results Test Acquired Date Facility Test Result H/L Range Note Laboratory test finding 06/01/2021 [facility] [address] [place], [place] [id number] [phone] Urine Culture <pending> Complete Blood Count 06/01/2021 [facility] [employer] Operator: [place] [address] [phone] WBC 4.0 x10*3/UL Low 4.1 - 10.9 RBC 5.05 x10*6/UL 4.20 - 6.30 Hemoglobin 15.2 g/dL 12.0 - 18.0 Hematocrit 45.7 % 37.0 - 51.0 MCV 90.3 fL 80.0 - 97.0 MCH 30.2 pg 26.0 - 32.0 MCHC 33.4 g/dL 31.0 - 38.0 RDW 13.4 % 11.6 - 13.7 PLT 206 x10*3/UL 140 - 440 MPV 8.8 FL 7.8 - 11.0 Lymph % 19.1 % 10.0 - 58.5 Mid % 4.9 % 1.7 - 9.3 Neut % 76.0 % 37.0 - 92.0 Lymph # 0.7 x10*3/UL 0.6 - 4.1 Mid # 0.2 x10*3/UL 0.1 - 0.6 Neut # 3.1 x10*3/UL 2.0 - 7.8 Basic Metabolic Panel 06/01/2021 [facility] [employer] Operator: [place] [address] [phone] Glucose 89 mg/dL 74 - 99 1 BUN 11 mg/dL 7 - 18 Creatinine 1.0 mg/dL 0.6 - 1.3 Sodium 138 mEq/L 136 - 145 Potassium 4.1 mEq/L 3.5 - 5.1 Chloride 101 mEq/L 98 - 107 Carbon Dioxide 32 mEq/L 21 - 32 Calcium 9.6 mg/dL 8.5 - 10.1 GFR 54 mL/min Low >60 GFR >= 60 mL/min >60 2 Complete Blood Count 03/04/2021 [facility] [employer] Operator: [place] [address] [phone] WBC 3.8 x10*3/UL Low 4.1 - 10.9 RBC 4.81 x10*6/UL 4.20 - 6.30 Hemoglobin 14.3 g/dL 12.0 - 18.0 Hematocrit 42.7 % 37.0 - 51.0 MCV 88.7 fL 80.0 - 97.0 MCH 29.8 pg 26.0 - 32.0 MCHC 33.6 g/dL 31.0 - 38.0 RDW 12.7 % 11.6 - 13.7 PLT 154 x10*3/UL 140 - 440 MPV 9.1 FL 7.8 - 11.0 Lymph % 21.2 % 10.0 - 58.5 Mid % 5.5 % 1.7 - 9.3 Neut % 73.3 % 37.0 - 92.0 Lymph # 0.8 x10*3/UL 0.6 - 4.1 Mid # 0.2 x10*3/UL 0.1 - 0.6 Neut # 2.8 x10*3/UL 2.0 - 7.8 Comprehensive Chem Profile 03/04/2021 [facility] [employer] Operator: [place] [address] [phone] Glucose 94 mg/dL 74 - 99 3 BUN 14 mg/dL 7 - 18 Creatinine 0.9 mg/dL 0.6 - 1.3 Sodium 141 mEq/L 136 - 145 Potassium 4.0 mEq/L 3.5 - 5.1 Chloride 105 mEq/L 98 - 107 Carbon Dioxide 30 mEq/L 21 - 32 Calcium 9.2 mg/dL 8.5 - 10.1 Alk. Phosphatase 69 mg/dL 46 - 116 Total Bilirubin 0.6 mg/dL 0.2 - 1.0 Ast (Sgot) 22 U/L 15 - 37 Alt (SGPT) 24 U/L 12 - 78 Albumin 3.7 g/dL 3.4 - 5.0 Total Protein 6.3 g/dL Low 6.4 - 8.2 A/G Ratio 1.42 CALC 1.00 - 1.90 GFR >= 60 mL/min >60 GFR >= 60 mL/min >60 4 Lipid Profile 03/04/2021 [facility] [employer] Operator: Dr Juan F Rojas [place], [place] [id number] [phone] Cholesterol 168 mg/dL 131 - 200 Triglycerides 63 mg/dL 30 - 150 HDL Cholesterol 89 mg/dL High 35 - 60 LDL (Calculated) 66 CALC 50 - 159 Laboratory test finding 03/04/2021 [facility] [employer] Operator: Dr JuanF Rojas [place], [place] [id number] [phone] Thyroid Stimulating Hormone 3.59 uIU/mL 0.3 6 - 3.74 1 100-125 mg/dL PRE-DIABET ES/FASTING >126 mg/dL DIABETES/FASTING 2 CHRONIC KIDNEY DISEASE STAGI NG PER NKF STAGE I & II GFR >= 60 NORMAL TO MILDLY DECREASED STAGE III GFR 30-59 MODERATELY DECREASED STAGE IV GFR 15-29 SEVERELY DECREASED STAGE V GFR <15 VERY LITTLE GFR LEFT ESRD GFR <15 ON FL[employer] QUALIFIED 3 100-125 mg/dL PRE-DIABET ES/FASTING >126 mg/dL DIABETES/FASTING 4 CHRONIC KIDNEY DISEASE STAGI NG PER NKF STAGE I & II GFR >= 60 NORMAL TO MILDLY DECREASED STAGE III GFR 30-59 MODERATELY DECREASED STAGE IV GFR 15-29 SEVERELY DECREASED STAGE V GFR <15 VERY LITTLE GFR LEFT ESRD GFR <15 ON FLIGHT [employer]ER [employer] QUALIFIED Procedures Date Code Description Status 03/05/2021 90349 Office/Outpatient Established Mo d MDM 30-39 Min Completed 09/24/2020 [id number] Mammogram Completed 07/23/2019 [id number] Bone Mineral Density Test Comple [facility] 07/23/2019 [id number] Mammogram Completed 11/21/2018 [id number] Diabetic Retinal Eye Exam Comple [facility] 07/17/2018 [id number] Mammogram Completed 11/08/2017 [id number] Diabetic Retinal Eye Exam Comple [facility] 11/02/2017 [id number] Diabetic Retinal Eye Exam Comple [facility] 07/15/2017 [id number] Mammogram Completed 06/23/2016 [id number] Bone Mineral Density Test Comple [facility] 06/23/2016 [id number] Mammogram Completed 06/14/2014 [id number] Mammogram Completed 06/07/2013 [id number] Bone Mineral Density Test Comple [facility] 06/06/2013 [id number] Bone Mineral Density Test Comple [facility] 06/01/2013 [id number] Mammogram Completed 03/27/2013 [id number] Colonoscopy Completed 04/17/2012 [id number] Mammogram Completed 01/21/2011 [id number] Mammogram Completed 01/21/2011 [id number] Bone Mineral Density Test Comple [facility] 08/20/2004 [id number] Mammogram Completed 09/12/2003 [id number] Bone Mineral Density Test Comple [facility] Medical Devices Description No Information Available Encounters Type Date Location Provider Dx Diagnosis Office Visit 03/05/2021 2:00p [facility] Dinah Nunez ,DO H81.10 Benign paroxysmal vertigo, unspecified ear G25.0 Essential tremor E03.9 Hypothyroidism, unspecified I65.23 Occlusion and stenosis of bi lateral carotid arteries F41.0 Panic disorder [episodic par oxysmal anxiety] F41.1 Generalized anxiety disorder M17.0 Bilateral primary osteoarthr itis of knee Z13.89 Encounter for screening for other disorder Assessments Date Code Description Provider 03/05/2021 H81.10 Benign paroxysmal vertigo, unspe cified ear Dinah Nunez,DO 03/05/2021 G25.0 Essential tremor Dinah Nunez,DO 03/05/2021 E03.9 Hypothyroidism, unspecified Иван Nunez,DO 03/05/2021 I65.23 Occlusion and stenosis of bilate ral carotid arteries Dinah Nunez,DO 03/05/2021 F41.0 Panic disorder [episodic paroxys mal anxiety] Dinah Nunez,DO 03/05/2021 F41.1 Generalized anxiety disorder Juan Nunez,DO 03/05/2021 M17.0 Bilateral primary osteoarthritis of knee Dinah Nunez,DO 03/05/2021 Z13.89 Encounter for screening for othe r disorder Dinah Nunez,DO 03/04/2021 E78.5 Hyperlipidemia, unspecified Иван Nunez,DO 03/04/2021 E78.5 Hyperlipidemia, unspecified Lab Schedule 03/04/2021 R03.0 Elevated blood-press ure reading, without diagnosis of hypertension Dinah Nunez, 03/04/2021 R03.0 Elevated blood-press ure reading, without diagnosis of hypertension Lab Schedule 03/04/2021 E03.9 Hypothyroidism, unspecified Иван Nunez, 03/04/2021 E03.9 Hypothyroidism, unspecified Lab Schedule Plan of Treatment Future Appointment(s):* 09/09/2021 9:10 am - Lab Schedule at [facility] * 09/10/2021 10:40 am - Dinah Nunez DO at [facility] 03/05/2021 - Dinah Nunez DO* H81.10 Benign paroxysmal vertigo, unspecified ear * G25.0 Essential tremor * E03.9 Hypothyroidism, unspecified * I65.23 Occlusion and stenosis of bilateral carotid arteries * F41.0 Panic disorder [episodic paroxysmal anxiety] * F41.1 Generalized anxiety disorder * M17.0 Bilateral primary osteoarthritis of knee * Z13.89 Encounter for screening for other disorder Functional Status Description No Information Available Mental Status Description No Information Available Referrals Description No Information Available
--- OUTSIDE RECORDS SUMMARY | 2021-06-15 19:16 | CCD | Continuity of Care Document ---
Author Author RUBY November Organization Unknown Address [address] [address] Phone [phone] Care Team Providers Care Boat Motor Mechanic Name Role Phone Dinah Nunez DO AUTM Unavailable Santos Sidhu DO AUTM [phone] María Elena Catalan PA-C AUTM [phone] Mehrdad Kirkpatrick MD AUTM [phone] Adis Rojas MD AUTM [phone] Problems Active Problems Provider Date Irritable bowel syndrome Dinah Nunez DO Onset: 12/27/19 13 Hypothyroidism Dinah Nunez DO Onset: 12/26/2012 Social History Type Date Description Comments Sex Unknown ETOH Use Rarely consumes alcohol Tobacco Use Start: Unknown Patient has never smoked Allergies and adverse reactions Description No Known Drug Allergies Medications Active Medications SIG Qnty Indications Ordering Provide r Date Saline Nasal [place] 0.65% Solution 3-4x/d as directed 1units Jenelle Mayo M.D. 08/27/19 21 Meclizine HCL 25mg Tablets one tab by mouth every 8 hours as needed for dizziness 30tabs Иван Nunez DO 08/18/2020 Nystatin 878872Cccy/GM Cream apply to affected area twice a day 15gm Dinah Nunez DO 2019 Multivitamin Gummies Womens Chewt abs 2 by mouth every day Dinah Nunez DO 12/18/2018 Turmeric one daily Nurse #2 11/14/2018 [facility] Digestive Health Probiotic Capsules 1 by [...] 11/13/2012 Oyster Shell Calcium 500 + D [id number] Tablets 1 by mouth every day 3bottles [...] Given 04/17/2020 Influenza,Unspecified U-Flu Given 05/31/2019 Influenza,Unspecified 78042 Given 09/29/2018 Shingrix Zoster Vaccine (HZV), Recombinant, Subunit, Adjuvanted 88489 Given 07/26/2018 Shingrix Zoster Vaccine (HZV), Recombinant, Subunit, Adjuvanted U-Flu Given 05/22/2018 Influenza,Unspecified U-PneuC Given 05/27/2017 Prevnar 13 U-Pneum Given 06/23/2016 Pneumococcal,Unspecified 98967 Given 05/21/2004 Influenza Virus Vaccine 66321 Refused 05/29/2019 Influenza Vaccin e Quadrivalent Preser/[place]ib[place] Use [address] Refused 05/12/2018 Influenza Virus Vaccine, Quadrivalent (Cciiv4), [...] H/L Range Note Laboratory test finding 06/01/2021 [facility] [address] [place] [address] [phone] Urine Culture <pending> Complete Blood Count 03/04/2021 [facility] rodarte Registration Specialist: [place] [address] [phone] WBC 3.8 x10*3/UL Low 4.1 - 10.9 [...] 2.0 - 7.8 Comprehensive Chem Profile 03/04/2021 [facility] Registration Specialist: [place] [address] [phone] Glucose 94 mg/dL 74 - 99 1 BUN 14 mg/dL 7 - 18 Creatinine [...] mL/min >60 GFR >= 60 mL/min >60 2 Lipid Profile 03/04/2021 [facility] Registration Specialist: [place] [address] [phone] Cholesterol 168 mg/dL 131 - 200 Triglycerides 63 mg/dL 30 - 150 HDL Cholesterol 89 mg/dL High 35 - 60 LDL (Calculated) 66 CALC 50 - 159 Laboratory test finding 03/04/2021 [facility] Registration Specialist: Dr Juan [place] [address] [phone] Thyroid Stimulating Hormone 3.59 uIU/mL 0.3 6 - 3.74 1 100-125 mg/dL PRE-DIABET ES/FASTING >126 mg/dL DIABETES/FASTING 2 CHRONIC KIDNEY DISEASE STAGI NG PER NKF STAGE I & II GFR >= 60 NORMAL TO MILDLY DECREASED STAGE III GFR 30-59 MODERATELY DECREASED STAGE IV GFR 15-29 SEVERELY DECREASED STAGE V GFR <15 VERY LITTLE GFR LEFT ESRD GFR <15 ON [employer] Procedures Date Code Description Status 03/05/2021 24666 Office/Outpatient Established Mo d MDM 30-39 Min Completed 09/24/2020 [id number] Mammogram Completed 07/23/2019 [id number] Bone Mineral Density Test Comple [facility] 07/23/2019 [id number] Mammogram Completed 11/21/2018 [id number] Diabetic Retinal Eye Exam Comple [facility] 07/17/2018 [id number] Mammogram Completed 11/08/2017 [id number] Diabetic Retinal Eye Exam Comple [facility] 11/02/2017 [id number] Diabetic Retinal Eye Exam Comple [facility] 07/15/2017 [id number] Mammogram Completed 06/23/2016 [id number] Bone Mineral Density Test Comple [facility] 06/23/2016 [id number] Mammogram Completed 06/14/2014 [id number] Mammogram Completed 06/07/2013 [id number] Bone Mineral Density Test Comple [facility] 06/06/2013 [id number] Bone Mineral Density Test Comple [facility] 06/01/2013 [id number] Mammogram Completed 03/27/2013 [id number] Colonoscopy Completed 04/17/2012 [id number] Mammogram Completed 01/21/2011 [id number] Mammogram Completed 01/21/2011 [id number] Bone Mineral Density Test Comple [facility] 08/20/2004 [id number] Mammogram Completed 09/12/2003 [id number] Bone Mineral Density Test Comple [facility] Medical Devices Description No Information Available Encounters Type Date Location Provider Dx Diagnosis Office Visit 03/05/2021 2:00p [facility] Dinah Nunez ,DO H81.10 Benign [...] Dinah Nunez,DO 03/04/2021 E78.5 Hyperlipidemia, unspecified Иван Nunez, 03/04/2021 E78.5 Hyperlipidemia, unspecified Lab Schedule 03/04/2021 R03.0 Elevated blood-press ure reading, without diagnosis of hypertension Dinah Nunez,DO 03/04/2021 R03.0 Elevated blood-press ure reading, without diagnosis of hypertension Lab Schedule 03/04/2021 E03.9 Hypothyroidism, unspecified Иван Nunez,DO 03/04/2021 E03.9 Hypothyroidism, unspecified Lab Schedule Plan of Treatment Future Appointment(s):* 09/09/2021 9:10 am - Lab Schedule at [facility] * 09/10/2021 10:40 am - Dinah Nunez DO at [facility] 03/05/2021 - Dinah Nunez DO* [...]
--- OUTSIDE RECORDS SUMMARY | 2021-06-15 19:16 | CCD | Continuity of Care Document ---
Author Author RUBY November Organization Unknown Address [id number] [address] Phone [phone] Care Team Providers Care Manager Interface Name Role Phone Dinah Nunez DO AUTM Unavailable Santos Sidhu DO AUTM [phone] María Elena Catalan PA-C AUTM [phone] Mehrdad Kirkpatrick MD AUTM [phone] Adis Rojas MD AUTM [phone] Problems Active Problems Provider Date Irritable bowel syndrome Dinah Nunez DO Onset: 12/27/19 13 Hypothyroidism Dinah Nunez DO Onset: 12/26/2012 Social History Type Date Description Comments Sex Unknown ETOH Use Rarely consumes alcohol Tobacco Use Start: Unknown Patient has never smoked Allergies and adverse reactions Description No Known Drug Allergies Medications Active Medications SIG Qnty Indications Ordering Provide r Date Saline Nasal [place] 0.65% Solution 3-4x/d as directed 1units Jenelle Mayo M.D. 08/27/19 21 Meclizine HCL 25mg Tablets one tab by mouth every 8 hours as needed for dizziness 30tabs Иван Nunez DO 08/18/2020 Nystatin [id number]/GM Cream apply to affected area twice a day 15gm Dinah Nunez DO 2019 Multivitamin Gummies Womens Chewt abs 2 by mouth every day Dinah Nunez DO 12/18/2018 Turmeric one daily Nurse #2 11/14/2018 [facility] Probiotic Capsules 1 by mouth [...] 11/13/2012 Oyster Shell Calcium 500 + D [id number] Tablets 1 by mouth every day 3bottles [...] Given 04/17/2020 Influenza,Unspecified U-Flu Given 05/31/2019 Influenza,Unspecified 04714 Given 09/29/2018 Shingrix Zoster Vaccine (HZV), Recombinant, Subunit, Adjuvanted 55405 Given 07/26/2018 Shingrix Zoster Vaccine (HZV), Recombinant, Subunit, Adjuvanted U-Flu Given 05/22/2018 Influenza,Unspecified U-PneuC Given 05/27/2017 Prevnar 13 U-Pneum Given 06/23/2016 Pneumococcal,Unspecified 36549 Given 05/21/2004 Influenza Virus Vaccine [id number] Refused 05/29/2019 Influenza Vaccin e Quadrivalent Preser/Antibiotic [place] Use [id number] Refused 05/12/2018 Influenza Virus Vaccine, Quadrivalent (Cciiv4), [...] Date Facility Test Result H/L Range Note Ua Routine 06/01/2021 [facility] [address] [place], [place] [id number] [phone] Appearance, Urine TURBID High Clear Color, Urine YELLOW Normal Yellow PH,Urine 5.0 units Normal 5.0-9.0 Specific [place] Urine Auto 1.020 Normal 1.002-1.035 Protein, Urine Auto NEGATIVE mg/dL Normal Negative Glucose, Urine (Ua) Auto NEGATIVE mg/dL Normal Negative Ketone, Urine Auto NEGATIVE mg/dL Normal Negative Urobilinogen, Urine Auto 0.2 mg/dL Normal 0.0-2.0 Bilirubin, Urine Auto NEGATIVE Normal Negative Nitrite, Urine Auto NEGATIVE Normal Negative Leukocyte Esterase, Urine Auto 2+ High Negative Blood, Urine Blood NEGATIVE Normal Negative WBC, Urine Auto 2 /HPF Normal 0-3 RBC, Urine Auto 0 /HPF Normal 0-3 Bacteria, Urine Auto NEGATIVE Normal Negative Squamous Epithelial Cell Ur AU 3 /HPF Normal 0-6 Transitional Epithelial Auto 1 /HPF Normal None Hyaline Cast, Urine Auto 0 /LPF Normal 0-1 Amorphous Sediment MODERATE High Negative Laboratory test finding 06/01/2021 [facility] [address] [place] [address] [phone] Urine Culture FULL REPORT IN L <SEE NOTE> Normal 1 Complete Blood Count 06/01/2021 [facility] Veterinary Anatomist: [place] [address] [phone] WBC 4.0 x10*3/UL Low 4.1 - 10.9 [...] 2.0 - 7.8 Basic Metabolic Panel 06/01/2021 [facility] Veterinary Anatomist: [place] [address] [phone] Glucose 89 mg/dL 74 - 99 2 BUN 11 mg/dL 7 - 18 Creatinine 1.0 mg/dL 0.6 - 1.3 Sodium 138 mEq/L 136 - 145 Potassium 4.1 mEq/L 3.5 - 5.1 Chloride 101 mEq/L 98 - 107 Carbon Dioxide 32 mEq/L 21 - 32 Calcium 9.6 mg/dL 8.5 - 10.1 GFR 54 mL/min Low >60 GFR >= 60 mL/min >60 3 Complete Blood Count 03/04/2021 [facility] Veterinary Anatomist: [place] [address] [phone] WBC 3.8 x10*3/UL Low 4.1 - 10.9 [...] 2.0 - 7.8 Comprehensive Chem Profile 03/04/2021 [facility] Veterinary Anatomist: [place] [address] [phone] Glucose 94 mg/dL 74 - 99 4 BUN 14 mg/dL 7 - 18 Creatinine [...] mL/min >60 GFR >= 60 mL/min >60 5 Lipid Profile 03/04/2021 [facility] Veterinary Anatomist: [place] [address] [phone] Cholesterol 168 mg/dL 131 - 200 Triglycerides 63 mg/dL 30 - 150 HDL Cholesterol 89 mg/dL High 35 - 60 LDL (Calculated) 66 CALC 50 - 159 Laboratory test finding 03/04/2021 [facility] Veterinary Anatomist: [place] [address] [phone] Thyroid Stimulating Hormone 3.59 uIU/mL 0.3 6 - 3.74 1 FULL REPORT IN LAB NOTES (eC W and [facility]). NO GROWTH CLINICAL SIGNIFICANCE 1 ORGANISM 2 100-125 mg/dL PRE-DIABET ES/FASTING >126 mg/dL DIABETES/FASTING 3 CHRONIC KIDNEY DISEASE STAGI NG PER NKF STAGE I & II GFR >= 60 NORMAL TO MILDLY DECREASED STAGE III GFR 30-59 MODERATELY DECREASED STAGE IV GFR 15-29 SEVERELY DECREASED STAGE V GFR <15 VERY LITTLE GFR LEFT ESRD GFR <15 ON BOX CAR CHECKER 4 100-125 mg/dL PRE-DIABET ES/FASTING >126 mg/dL DIABETES/FASTING 5 CHRONIC KIDNEY DISEASE STAGI NG PER NKF STAGE I & II GFR >= 60 NORMAL TO MILDLY DECREASED STAGE III GFR 30-59 MODERATELY DECREASED STAGE IV GFR 15-29 SEVERELY DECREASED STAGE V GFR <15 VERY LITTLE GFR LEFT ESRD GFR <15 ON BOX CAR CHECKER Procedures Date Code Description Status 03/05/2021 30417 Office/Outpatient Established Mo d MDM 30-39 Min Completed 09/24/2020 [id number] Mammogram Completed 07/23/2019 [id number] Bone Mineral Density Test [facility]ple [facility] 07/23/2019 [id number] Mammogram Completed 11/21/2018 [id number] Diabetic Retinal Eye Exam [facility] 07/17/2018 [id number] Mammogram Completed 11/08/2017 [id number] Diabetic Retinal Eye Exam [facility]ple [facility] 11/02/2017 [id number] Diabetic Retinal Eye Exam Comple [facility] 07/15/2017 [id number] Mammogram Completed 06/23/2016 [id number] Bone Mineral Density Test Comple [facility] 06/23/2016 [id number] Mammogram Completed 06/14/2014 [id number] Mammogram Completed 06/07/2013 [id number] Bone Mineral Density Test Comple [facility] 06/06/2013 [id number] Bone Mineral Density Test Comple [facility] 06/01/2013 [id number] Mammogram Completed 03/27/2013 [id number] Colonoscopy Completed 04/17/2012 [id number] Mammogram Completed 01/21/2011 [id number] Mammogram Completed 01/21/2011 [id number] Bone Mineral Density Test Comple [facility] 08/20/2004 [id number] Mammogram Completed 09/12/2003 [id number] Bone Mineral Density Test Comple [facility] Medical Devices Description No Information Available Encounters Type Date Location Provider Dx Diagnosis Office Visit 03/05/2021 2:00p [facility] Dinah Nunez DO H81.10 Benign paroxysmal vertigo, unspecified ear G25.0 Essential tremor E03.9 Hypothyroidism, unspecified I65.23 Occlusion and stenosis of bi lateral carotid arteries F41.0 Panic disorder [episodic par oxysmal anxiety] F41.1 Generalized anxiety disorder M17.0 Bilateral primary osteoarthr itis of knee Z13.89 Encounter for screening for other disorder Assessments Date Code Description Provider 03/05/2021 H81.10 Benign paroxysmal vertigo, unspe cified ear Dinah Nunez, 03/05/2021 G25.0 Essential tremor Dinah Nunez,DO 03/05/2021 E03.9 Hypothyroidism, unspecified Иван crista Ruby,DO 03/05/2021 I65.23 Occlusion and stenosis of bilate ral carotid arteries Dinah Nunez, 03/05/2021 F41.0 Panic disorder [episodic paroxys mal anxiety] Dinah Nunez, 03/05/2021 F41.1 Generalized anxiety disorder Juan Nunez,DO 03/05/2021 M17.0 Bilateral primary osteoarthritis of knee Dinah Nunez, 03/05/2021 Z13.89 Encounter for screening for othe r disorder Dinah Nunez DO 03/04/2021 E78.5 Hyperlipidemia, unspecified Иван Nunez, 03/04/2021 E78.5 Hyperlipidemia, unspecified Lab Schedule 03/04/2021 R03.0 Elevated blood-press ure reading, without diagnosis of hypertension Dinah Nunez,DO 03/04/2021 R03.0 Elevated blood-press ure reading, without diagnosis of hypertension Lab Schedule 03/04/2021 E03.9 Hypothyroidism, unspecified Иван Nunez, 03/04/2021 E03.9 Hypothyroidism, unspecified Lab Schedule Plan of Treatment Future Appointment(s):* 09/09/2021 9:10 am - Lab Schedule at [facility] * 09/10/2021 10:40 am - Dinah Nunez DO at [facility] 03/05/2021 - Dinah Nunez DO* [...]
--- OUTSIDE RECORDS SUMMARY | 2021-06-15 19:17 | CCD ---
Author Author [facility] Organization [facility] Address Unknown Phone Unavailable Care Team Providers Care [employer] Name Role Phone Fish, B Victor M VASQUEZ Unavailable Unavailable Fish, B Victor M VASQUEZ Unavailable Unavailable Fish, B Victor M VASQUEZ Unavailable Unavailable Fish, B Victor M VASQUEZ Unavailable Unavailable Fish, B Victor M VASQUEZ Unavailable Unavailable Fish, B Victor M VASQUEZ Unavailable Unavailable Fish, B Victor M VASQUEZ Unavailable Unavailable Fish, B Victor M VASQUEZ Unavailable Unavailable Fish, B Victor M VASQUEZ Unavailable Unavailable Fish, B Victor M VASQUEZ Unavailable Unavailable Fish, B Victor M VASQUEZ Unavailable Unavailable Fish, B Victor M VASQUEZ Unavailable Unavailable Fish, B Victor M VASQUEZ Unavailable Unavailable Fish, B Victor M VASQUEZ Unavailable Unavailable Fish, B Victor M VASQUEZ Unavailable Unavailable Fish, B Victor M VASQUEZ Unavailable Unavailable Fish, B Victor M VASQUEZ Unavailable Unavailable Fish, B Victor M VASQUEZ Unavailable Unavailable Fish, B Victor M VASQUEZ Unavailable Unavailable Fish, B Victor M VASQUEZ Unavailable Unavailable Fish, B Victor M VASQUEZ Unavailable Unavailable Fish, B Victor M VASQUEZ Unavailable Unavailable Fish, B Victor M VASQUEZ Unavailable Unavailable Fish, B Victor M VASQUEZ Unavailable Unavailable Fish, B Victor M VASQUEZ Unavailable Unavailable Fish, B Victor M VASQUEZ Unavailable Unavailable Fish, B Victor M VASQUEZ Unavailable Unavailable Fish, B Victor M VASQUEZ Unavailable Unavailable Fish, B Victor M VASQUEZ Unavailable Unavailable Fish, B Victor M VASQUEZ Unavailable Unavailable Fish, B Victor M VASQUEZ Unavailable Unavailable Fish, B Victor M VASQUEZ Unavailable Unavailable Fish, B Victor M VASQUEZ Unavailable Unavailable Fish, B Victor M VASQUEZ Unavailable Unavailable Fish, B Victor M VASQUEZ Unavailable Unavailable Fish, B Victor M VASQUEZ Unavailable Unavailable Fish, B Victor M VASQUEZ Unavailable Unavailable Fish, B Victor M VASQUEZ Unavailable Unavailable Fish, B Victor M VASQUEZ Unavailable Unavailable Fish, B Victor M VASQUEZ Unavailable Unavailable Fish, B Victor M VASQUEZ Unavailable Unavailable Fish, B Victor M VASQUEZ Unavailable Unavailable Fish, B Victor M VASQUEZ Unavailable Unavailable Fish, B Victor M VASQUEZ Unavailable Unavailable Fish, B Victor M VASQUEZ Unavailable Unavailable Fish, B Victor M VASQUEZ Unavailable Unavailable Fish, B Victor M VASQUEZ Unavailable Unavailable Fish, B Victor M VASQUEZ Unavailable Unavailable Fish, B Victor M VASQUEZ Unavailable Unavailable Fish, B Victor M VASQUEZ Unavailable Unavailable Fish, B Victor M VASQUEZ Unavailable Unavailable Fish, B Victor M VASQUEZ Unavailable Unavailable Fish, B Victor M VASQUEZ Unavailable Unavailable Fish, B Victor M VASQUEZ Unavailable Unavailable Fish, B Victor M VASQUEZ Unavailable Unavailable Fish, B Victor M VASQUEZ Unavailable Unavailable Fish, [facility], PA-C Unavailable Unavailabl e Fish, [facility], PA-C Unavailable Unavailabl e Fish, [facility], PA-C Unavailable Unavailabl e Fish, [facility], PA-C Unavailable Unavailabl e Fish, [facility], PA-C Unavailable Unavailabl e Fish, [facility], PA-C Unavailable Unavailabl e Fish, [facility], PA-C Unavailable Unavailabl e Fish, [facility], PA-C Unavailable Unavailabl e Fish, [facility], PA-C Unavailable Unavailabl e Fish, [facility], PA-C Unavailable Unavailabl e Fish, [facility], PA-C Unavailable Unavailabl e Fish, [facility], PA-C Unavailable Unavailabl e Fish, [facility], PA-C Unavailable Unavailabl e Fish, [facility], PA-C Unavailable Unavailabl e Fish, [facility], PA-C Unavailable Unavailabl e Fish, [facility], PA-C Unavailable Unavailabl e Fish, [facility], PA-C Unavailable Unavailabl e Fish, [facility], PA-C Unavailable Unavailabl e Fish, [facility], PA-C Unavailable Unavailabl e Fish, [facility], PA-C Unavailable Unavailabl e Fish, [facility], PA-C Unavailable Unavailabl e Fish, [facility], PA-C Unavailable Unavailabl e Fish, [facility], PA-C Unavailable Unavailabl e Fish, [facility], PA-C Unavailable Unavailabl e Fish, W[facility], PA-C Unavailable Unavailabl e Fish, W[facility], PA-C Unavailable Unavailabl e Fish, Wanda [facility], PA-C Unavailable Unavailabl e Fish, [facility], PA-C Unavailable Unavailabl e Fish, [facility], PA-C Unavailable Unavailabl e Fish, Wanda [facility], PA-C Unavailable Unavailabl e Fish, Wanda [facility], PA-C Unavailable Unavailabl e Fish, Wanda [facility], PA-C Unavailable Unavailabl e Fish, W[facility], PA-C Unavailable Unavailabl e Fish, W[facility], PA-C Unavailable Unavailabl e Fish, W[facility], PA-C Unavailable Unavailabl e Fish, W[facility], PA-C Unavailable Unavailabl e Enrique, Dinah DO Unavailable Unavailable Enrique, Dinah DO Unavailable Unavailable Enrique, Dinah DO Unavailable Unavailable Enrique, Dinah DO Unavailable Unavailable Enrique, Dinah DO Unavailable Unavailable Enrique, Dinah DO Unavailable Unavailable Enrique, Dinah DO Unavailable Unavailable Enrique, Dinah DO Unavailable Unavailable Enrique, Dinah DO Unavailable Unavailable Enrique, Dinah DO Unavailable Unavailable Enrique, Dinah DO Unavailable Unavailable Enrique, Dinah DO Unavailable Unavailable Enrique, Dinah DO Unavailable Unavailable Enrique, Dinah DO Unavailable Unavailable Enrique, Dinah DO Unavailable Unavailable Enrique, Dinah DO Unavailable Unavailable Enrique, Dinah DO Unavailable Unavailable Enrique, Dinah DO Unavailable Unavailable Enrique, Dinah DO Unavailable Unavailable Enrique, Dinah DO Unavailable Unavailable Enrique, Dinah DO Unavailable Unavailable Enrique, Dinah DO Unavailable Unavailable Enrique, Dinah DO Unavailable Unavailable Enrique, Dinah DO Unavailable Unavailable Enrique, Dinah DO Unavailable Unavailable Enrique, Dinah DO Unavailable Unavailable Enrique, Dinah DO Unavailable Unavailable Enrique, Dinah DO Unavailable Unavailable Enrique, Dinah DO Unavailable Unavailable Enrique, Dinah DO Unavailable Unavailable Enrique, Dinah DO Unavailable Unavailable Enrique, Dinah DO Unavailable Unavailable Enrique, Dinah DO Unavailable Unavailable Enrique, Dinah DO Unavailable Unavailable Enrique, Dinah DO Unavailable Unavailable Enrique, Dinah DO Unavailable Unavailable Enrique, Dinah DO Unavailable Unavailable Enrique, Dinah DO Unavailable Unavailable Enrique, Dinah DO Unavailable Unavailable Enrique, Dinah DO Unavailable Unavailable Enrique, Dinah DO Unavailable Unavailable Enrique, Dinah DO Unavailable Unavailable Enrique, Dinah DO Unavailable Unavailable Enrique, Dinah DO Unavailable Unavailable Enrique, Dinah DO Unavailable Unavailable Enrique, Dinah DO Unavailable Unavailable Enrique, Dinah DO Unavailable Unavailable Enrique, Dinah DO Unavailable Unavailable Enrique, Dinah DO Unavailable Unavailable Enrique, Dinah DO Unavailable Unavailable Enrique, Dinah DO Unavailable Unavailable Enrique, Dinah DO Unavailable Unavailable Enrique, Dinah DO Unavailable Unavailable Enrique, Dinah DO Unavailable Unavailable Enrique, Dinah DO Unavailable Unavailable Enrique, Dinah DO Unavailable Unavailable Enrique, Dinah DO Unavailable Unavailable Enrique, Dinah DO Unavailable Unavailable Enrique, Dinah DO Unavailable Unavailable Enrique, Dinah DO Unavailable Unavailable Enrique, Dinah DO Unavailable Unavailable Enrique, Dinah DO Unavailable Unavailable Enrique, Dinah DO Unavailable Unavailable Enrique, Dinah DO Unavailable Unavailable Enrique, Dinah DO Unavailable Unavailable Enrique, Dinah DO Unavailable Unavailable Enrique, Dinah DO Unavailable Unavailable Enrique, Dinah DO Unavailable Unavailable Enrique, Dinah DO Unavailable Unavailable Enrique, Dinah DO Unavailable Unavailable Enrique, Dinah DO Unavailable Unavailable Enrique, Dinah DO Unavailable Unavailable Enrique, Dinah DO Unavailable Unavailable Enrique, Dinah DO Unavailable Unavailable Willis Mayo MD Unavailable Unavailable Willis Mayo MD Unavailable Unavailable Willis Mayo MD Unavailable Unavailable Willis Mayo MD Unavailable Unavailable Willis Mayo MD Unavailable Unavailable Willis Mayo MD Unavailable Unavailable Willis Mayo MD Unavailable Unavailable Willis Mayo MD Unavailable Unavailable Willis Mayo MD Unavailable Unavailable Willis Mayo MD Unavailable Unavailable Willis Mayo MD Unavailable Unavailable Willis Mayo MD Unavailable Unavailable Willis Mayo MD Unavailable Unavailable Willis Mayo MD Unavailable Unavailable Willis Mayo MD Unavailable Unavailable Willis Mayo MD Unavailable Unavailable Willis Mayo MD Unavailable Unavailable Willis Mayo MD Unavailable Unavailable Maria EstherWillis MD Unavailable Unavailable Maria EstherWillis bryson MD Unavailable Unavailable Maria EstherWillis MD Unavailable Unavailable Maria EstherWillis MD Unavailable Unavailable Maria EstherWillis MD Unavailable Unavailable Maria EstherWillis MD Unavailable Unavailable Maria EstherWillis MD Unavailable Unavailable Maria EstherWillis MD Unavailable Unavailable Maria EstherWillis MD Unavailable Unavailable Maria EstherWillis wang MD Unavailable Unavailable Maria EstherWillis MD Unavailable Unavailable Maria EstherWillis MD Unavailable Unavailable Maria EstherWillis MD Unavailable Unavailable Maria EstherWillis bryson MD Unavailable Unavailable Maria EstherWillis MD Unavailable Unavailable Maria EstherWillis MD Unavailable Unavailable Maria EstherWillis MD Unavailable Unavailable Maria EstherWillis wang MD Unavailable Unavailable Maria EstherWillis MD Unavailable Unavailable Willis Mayo MD Unavailable Unavailable Maria EstherWillis bryson MD Unavailable Unavailable Willis Mayo MD Unavailable Unavailable Willis Mayo MD Unavailable Unavailable Willis Mayo MD Unavailable Unavailable Willis Mayo MD Unavailable Unavailable Willis Mayo MD Unavailable Unavailable Willis Mayo MD Unavailable Unavailable Willis Mayo MD Unavailable Unavailable Willis Mayo MD Unavailable Unavailable Willis Mayo MD Unavailable Unavailable Willis Mayo MD Unavailable Unavailable Willis Mayo MD Unavailable Unavailable Willis Mayo MD Unavailable Unavailable Willis Mayo MD Unavailable Unavailable Willis Mayo MD Unavailable Unavailable Willis Mayo MD Unavailable Unavailable Willis Mayo MD Unavailable Unavailable Willis Mayo MD Unavailable Unavailable Willis Mayo MD Unavailable Unavailable Willis Mayo MD Unavailable Unavailable Willis Mayo MD Unavailable Unavailable Willis Mayo MD Unavailable Unavailable Willis Mayo MD Unavailable Unavailable Willis Mayo MD Unavailable Unavailable Willis Mayo MD Unavailable Unavailable Willis Mayo MD Unavailable Unavailable Willis Mayo MD Unavailable Unavailable Willis Mayo MD Unavailable Unavailable Willis Mayo MD Unavailable Unavailable Willis Mayo MD Unavailable Unavailable Maria Esther, Willis Almanzar MD Unavailable Unavailable Maria Esther, Willis Almanzar MD Unavailable Unavailable Maria Esther, Willis Almanzar MD Unavailable Unavailable Maria Esther, Willis Almanzar MD Unavailable Unavailable Maria Esther, M Jenelle VASQUEZ Unavailable Unavailable Maria Esther, Willis Almanzar MD Unavailable Unavailable Maria Esther, Willis Almanzar MD Unavailable Unavailable Maria Esther, Willis Almanzar MD Unavailable Unavailable Maria Esther, Willis Almanzar MD Unavailable Unavailable Maria Esther, Willis Almanzar MD Unavailable Unavailable Maria Esther, M Jenelle VASQUEZ Unavailable Unavailable Maria Esther, Willis Almanzar MD Unavailable Unavailable Maria Esther, Willis Almanzar MD Unavailable Unavailable Maria Esther, Willis Almanzar MD Unavailable Unavailable Maria Esther, M Jenelle VASQUEZ Unavailable Unavailable Maria Esther, M Jenelle VASQUEZ Unavailable Unavailable Orilion VASQUEZ, M Marc Unavailable Sánchez VASQUEZ, M Marc Unavailable Sánchez VASQUEZ, M Marc Unavailable Sánchez VASQUEZ, M Marc Unavailable Sánchez VASQUEZ, M Marc Unavailable Sánchez VASQUEZ, M Marc Unavailable Sánchez VASQUEZ, M Marc Unavailable Sánchez VASQUEZ, M Marc Unavailable Sánchez VASQUEZ, M Marc Unavailable Sánchez VASQUEZ, M Marc Unavailable Sánchez VASQUEZ, M Marc Unavailable Sánchez VASQUEZ, M Marc Unavailable Sánchez VASQUEZ, M Marc Unavailable Sánchez VASQUEZ, M Marc Unavailable Sánchez VASQUEZ, M Marc Unavailable Sánchez VASQUEZ, M Marc Unavailable Sánchez VASQUEZ, M Marc Unavailable Sánchez VASQUEZ, M Marc Unavailable Sánchez VASQUEZ, M Marc Unavailable Sánchez VASQUEZ, M Marc Unavailable Orio MD, M Marc Unavailable Orio MD, M Marc Unavailable Orio MD, M Marc Unavailable Orio MD, M Marc Unavailable Orio MD, M Marc Unavailable Orio MD, M Marc Unavailable Orio MD, M Marc Unavailable Orio MD, M Marc Unavailable Orio MD, M Marc Unavailable Orio MD, M Marc Unavailable Orio MD, M Marc Unavailable Orio MD, M Marc Unavailable Orio MD, M Marc Unavailable Orio MD, M Marc Unavailable Orio MD, M Marc Unavailable Orio MD, M Marc Unavailable Orio MD, M Marc Unavailable Lion Luong MD Unavailable Unavailable Lion Luong MD Unavailable Unavailable Lion Luong MD Unavailable Unavailable Lion Luong MD Unavailable Unavailable Lion Luong MD Unavailable Unavailable Lion Luong MD Unavailable Unavailable Lion Luong MD Unavailable Unavailable Lion Luong MD Unavailable Unavailable Lion Luong MD Unavailable Unavailable Lion Luong MD Unavailable Unavailable Lion Luong MD Unavailable Unavailable Lion Luong MD Unavailable Unavailable Lion Luong MD Unavailable Unavailable Lion Luong MD Unavailable Unavailable Lion Luong MD Unavailable Unavailable Lion Luong MD Unavailable Unavailable Lion Luong MD Unavailable Unavailable Lion Luong MD Unavailable Unavailable Lion Luong MD Unavailable Unavailable Lion Luong MD Unavailable Unavailable Lion Luong MD Unavailable Unavailable Lion Luong MD Unavailable Unavailable Lion Luong MD Unavailable Unavailable Lion Luong MD Unavailable Unavailable Lion Luong MD Unavailable Unavailable Lion Luong MD Unavailable Unavailable Lion Luong MD Unavailable Unavailable Lion Luong MD Unavailable Unavailable Lion Luong MD Unavailable Unavailable Lion Luong MD Unavailable Unavailable Lion Luong MD Unavailable Unavailable Lion Luong MD Unavailable Unavailable Lion Luong MD Unavailable Unavailable Lion Luong MD Unavailable Unavailable Lion Luong MD Unavailable Unavailable Lion Luong MD Unavailable Unavailable Lion Luong MD Unavailable Unavailable Lion Luong MD Unavailable Unavailable Lion Luong MD Unavailable Unavailable Lion Luong MD Unavailable Unavailable Lion Luong MD Unavailable Unavailable Lion Luong MD Unavailable Unavailable Lion Luong MD Unavailable Unavailable Lion Luong MD Unavailable Unavailable Lion Luong MD Unavailable Unavailable Lion Luong MD Unavailable Unavailable Lion Luong MD Unavailable Unavailable Lion Luong MD Unavailable Unavailable Lion Luong MD Unavailable Unavailable Lion Luong MD Unavailable Unavailable Lion Luong MD Unavailable Unavailable Lion Luong MD Unavailable Unavailable Lion Luong MD Unavailable Unavailable Lion Luong MD Unavailable Unavailable Lion Luong MD Unavailable Unavailable Lion Luong MD Unavailable Unavailable Lion Luong MD Unavailable Unavailable Lion Luong MD Unavailable Unavailable Lion Luong MD Unavailable Unavailable Lion Luong MD Unavailable Unavailable Lion Luong MD Unavailable Unavailable Lion Luong MD Unavailable Unavailable Lion Luong MD Unavailable Unavailable Lion Luong MD Unavailable Unavailable Cherise, O Samah MD Unavailable Unavailable Cherise, O Samah MD Unavailable Unavailable Cherise, O Samah MD Unavailable Unavailable Cherise, O Samah MD Unavailable Unavailable Cherise, O Samah MD Unavailable Unavailable Cherise, O Samah MD Unavailable Unavailable Cherise, O Samah MD Unavailable Unavailable Cherise, O Samah MD Unavailable Unavailable Cherise, O Samah MD Unavailable Unavailable Cherise, O Samah MD Unavailable Unavailable Cherise, O Samah MD Unavailable Unavailable Cherise, O Samah MD Unavailable Unavailable Cherise, O Samah MD Unavailable Unavailable Cherise, O Samah MD Unavailable Unavailable Cherise, O Samah MD Unavailable Unavailable NADINE, A LYNETTE DO Unavailable Unavailable NADINE, A LYNETTE DO Unavailable Unavailable NADINE, A LYNETTE DO Unavailable Unavailable NADINE, A LYNETTE DO Unavailable Unavailable NADINE, A LYNETTE DO Unavailable Unavailable NADINE, A LYNETTE DO Unavailable Unavailable NADINE, A LYNETTE DO Unavailable Unavailable NADINE, A LYNETTE DO Unavailable Unavailable NADINE, A LYNETTE DO Unavailable Unavailable NADINE, A LYNETTE DO Unavailable Unavailable NADINE, A LYNETTE DO Unavailable Unavailable NADINE, A LYNETTE DO Unavailable Unavailable NADINE, A LYNETTE DO Unavailable Unavailable NADINE, A LYNETTE DO Unavailable Unavailable NADINE, A LYNETTE DO Unavailable Unavailable NADINE, A LYNETTE DO Unavailable Unavailable NADINE, A LYNETTE DO Unavailable Unavailable NADINE, A LYNETTE DO Unavailable Unavailable NADINE, A LYNETTE DO Unavailable Unavailable NADINE, A LYNETTE DO Unavailable Unavailable NADINE, A LYNETTE DO Unavailable Unavailable NADINE, A LYNETTE DO Unavailable Unavailable Re-disclosure Warning The records that you are about to access may contain information from federally-assisted alcohol or drug abuse programs. If such information is present, then the following federally mandated warning applies: This information has been disclosed to you from records protected by federal confidentiality rules (42 CFR part 2). The federal rules prohibit you from making any further disclosure of this information unless further disclosure is expressly permitted by the written consent of the person to whom it pertains or as otherwise permitted by 42 CFR part 2. A general authorization for the release of medical or other information is NOT sufficient for this purpose. The Federal rules restrict any use of the information to criminally investigate or prosecute any alcohol or drug abuse patient.The records that you are about to access may contain highly sensitive health information, the redisclosure of which is protected by Article 27-F of the [facility] Public Health law. If you continue you may have access to information: Regarding HIV / AIDS; Provided by facilities licensed or operated by the [facility] Office of Mental Health; or Provided by the [facility] Office for People With Developmental Disabilities. If such information is present, then the following [facility] mandated warning applies: This information has been disclosed to you from confidential records which are protected by state law. State law prohibits you from making any further disclosure of this information without the specific written consent of the person to whom it pertains, or as otherwise permitted by law. Any unauthorized further disclosure in violation of state law may result in a fine or long-term sentence or both. A general authorization for the release of medical or other information is NOT sufficient authorization for further disc losure. Family History Family Member Name Family Member Gender Family Member Status Date o f Status Description Data Source(s) Unknown Male Problem [facility] ([facility]) Unknown Male Problem [facility] ([facility] ) Unknown Unknown Problem [facility] ([facility] ) Unknown Unknown Problem [facility] ([facility] ) Encounters Encounter Providers Location Date Indications Data Source(s ) Outpatient Attender: Marc Lazoer: Dinah Seymour 05/19/2021 10:26:26 AM EDT [facility] Recurring Patient Referrer: Dinah Nunez DO 05/09/2021 06:2 9:35 AM EDT [facility] Outpatient Attender: Marc Waldrop: Dinah Seymour 05/05/2021 10:57:16 AM EDT [facility] Recurring Patient Referrer: Dinah Nunez DO 05/05/2021 10:0 8:04 AM EDT [facility] Recurring Patient Referrer: Dinah Nunez DO 04/24/2021 08:1 5:18 AM EDT [facility] Recurring Patient Referrer: Dinah Nunez DO 04/23/2021 02:5 5:29 PM EDT [facility] Outpatient Attender: Dinah Man 03/05 02:00:00 PM EDT [facility] ([facility] ) <td ID="encounterTypeDescriptionID0">1 Y ear Follow-Up</td><td>Lynette Kirkpatrick DO</td><td>Adis Rojas MD [facility]</td><td>02/05/2021</td><td>12:47PM</td><td>1:49PM</td><td></td>Outpatient Attender: LYNETTE Ferguson MD [facility] 02/05/2021 12:47:00 PM EDT - 02/05/2021 01:49:00 PM EDT [facility] (Adis Ingram MD [facility]) Office Visit Attender: Victor M Catalan MD Physical Therapy 2020 09:00:00 AM EDT [facility] ([facility]) Outpatient Attender: Victor M Catalan MD Physical Therapy 01/01/2021 0 1:45:00 PM EDT [facility] ([facility]) Outpatient Attender: Gloria Luong MD [facility] 11/11/2020 02:45:00 PM EDT [facility] ([facility]) Outpatient Attender: Dinah Man 09/05 01:30:00 PM EST [facility] ([facility] ) Outpatient Attender: Gloria Luong MD [facility] 08/29/2020 07:00:00 AM EST [facility] ([facility]) Outpatient Attender: Jenelle Nathan 01:45:00 PM EST [facility] ([facility] ) Outpatient Attender: Dinah Man 08/18 08:00:00 AM EST [facility] ([facility] ) OFFICE OUTPATIENT VISIT 15 MINUTES Attender: María Elena WILSON PA-C Physical Therapy 06/09/2020 09:30:00 AM EST [facility] ([facility]) Immunizations Vaccine Date Status Description Data Source(s) COVID-19 VACCINE Moderna 09/18/2020 12:00:00 AM EST completed [facility] Vaccine Series Complete: YESThis Data wa s Submitted to [facility] Via [facility]. COVID-19 VACCINE Moderna 08/21/2020 12:00:00 AM EST completed [facility] Vaccine Series Complete: NOThis Data was Submitted to [facility] Via [employer]. This CVX code allows reporting of a vacc ination when formulation is unknown (for example, when recording a Influenza vaccination when noted on a vaccination card) 04/17/2020 09:38:00 AM EDT completed [facility] ([facility]) INFLUENZA VACCINE QUADRIVALENT (65 YR UP)/MF59 C.1/PF 04/17/2020 12:00:00 AM EDT completed [facility] Medications Medication Brand Name Start Date Product Form Dose Route Admi nistrative Instructions Pharmacy Instructions Status Indications Reaction Description Data Source(s) 10 mg 06/11/2021 12:00:00 AM EDT capsule 90 TAKE ONE CAPSULE BY MOUTH THREE TIMES A DAY BEFORE MEALS NEEDED TAKE ONE CAPSULE BY MOUTH THREE TIMES A DAY BEFORE MEALS NEEDED SOLD: 06/11/2021 [facility] Ondansetron 4 MG Disintegrating Oral Tablet ONDANSETRON 06/02/2021 12:00:00 AM EDT tablet,disintegrating 20 DISSOLVE 1 TABLET UNDER THE TONGUE EVERY 4 HOURS NEEDED FOR NAUSEA DISSOLVE 1 TABLET UNDER THE TONGUE EVERY 4 HOURS NEEDED FOR NAUSEA SOLD: 06/02/2021 [facility] 5 mg 06/02/2021 12:00:00 AM EDT tablet 56 TAKE ONE TO TWO TABLETS BY MOUTH EVERY 4 TO 6 HOURS NEEDED FOR PAIN MAXIMUM DAILY DOSE = EIGHT TABLETS TAKE ONE TO TWO TABLETS BY MOUTH EVERY 4 TO 6 HOURS NEEDED FOR PAIN MAXIMUM DAILY DOSE = EIGHT TABLETS SOLD: 06/02/2021 [facility] 200 mg 06/01/2021 12:00:00 AM EDT capsule 28 TAKE ONE CAPSULE BY MOUTH TWICE A DAY FOR 2 WEEKS, STARTING POST-OP DAY 4 TAKE ONE CAPSULE BY MOUTH TWICE A DAY FOR 2 WEEKS, STARTING POST-OP DAY 4 SOLD: 06/02/2021 [facility] 10 mg 06/01/2021 12:00:00 AM EDT tablet 10 TAKE 1 TABLET BY MOUTH THE EVENING OF SURGERY, THEN 1 TABLET 3 TIMES A DAY FOR 3 DAYS TAKE 1 TABLET BY MOUTH THE EVENING OF SURGERY, THEN 1 TABLET 3 TIMES A DAY FOR 3 DAYS SOLD: 06/02/2021 [facility] 2 ML Sodium Hyaluronate 10 MG/ML Prefilled Syringe [Euflexxa ] Euflexxa 01/01/2021 12:00:00 AM EDT active [facility] ([facility]) Covid-19 vaccine, Unspecified 09/18/2020 12:00:00 AM EST completed [facility] ([facility]) Medication administered onsite 5 mg 09/05/2020 12:00:00 AM EST tablet 1 TAKE 1 TABLET BY MOUTH 30-60 MINUTES PRIOR TO MRI MAXIMUM DAILY DOSE = 1 TABLET TAKE 1 TABLET BY MOUTH 30-60 MINUTES PRIOR TO MRI MAXIMUM DAILY DOSE = 1 TABLET SOLD: 09/06/2020 [facility] Diazepam 5 MG Oral Tablet Diazepam 09/04/2020 12:00:00 AM EST active [facility] ([facility]) Sodium Chloride 0.111 MEQ/ML Nasal Solution Saline Nasal Spr ay 08/27/2020 12:00:00 AM EST active M [facility] ([facility]) Amoxicillin 500 MG Oral Capsule Amoxicillin 08/27/2020 12:00:00 AM EST completed [facility] ([facility]) 500 mg 08/27/2020 12:00:00 AM EST capsule 21 TAKE ONE CAPSULE BY MOUTH THREE TIMES A DAY FOR 7 DAYS TAKE ONE CAPSULE BY MOUTH THREE TIMES A DAY FOR 7 DAYS SOLD: 08/27/2020 [facility] Covid-19 vaccine, Unspecified 08/21/2020 12:00:00 AM EST completed [facility] ([facility]) Medication administered onsite Meclizine Hydrochloride 25 MG Oral Tablet MECLIZINE HCL 08/18/2020 12:00:00 AM EST tablet 30 TAKE ONE TABLET BY MOUTH MARCELA RY 8 HOURS NEEDED FOR DIZZINESS TAKE ONE TABLET BY MOUTH EVERY 8 HOURS NEEDED FOR DIZZINESS SOLD: 04/20/2021 [facility] Meclizine Hydrochloride 25 MG Oral Tablet MECLIZINE HCL 08/18/2020 12:00:00 AM EST tablet 30 TAKE ONE TABLET BY MOUTH MARCELA RY 8 HOURS NEEDED FOR DIZZINESS TAKE ONE TABLET BY MOUTH EVERY 8 HOURS NEEDED FOR DIZZINESS SOLD: 08/19/2020 [facility] Meclizine Hydrochloride 25 MG Oral Tablet Meclizine HCL 08/18/2020 12:00:00 AM EST ORAL active [facility] ([facility]) Meclizine Hydrochloride 25 MG Oral Tablet MECLIZINE HCL 08/14/2020 12:00:00 AM EST tablet 20 TAKE ONE TABLET BY MOUTH MARCELA RY 6 HOURS NEEDED FOR DIZZINESS TAKE ONE TABLET BY MOUTH EVERY 6 HOURS NEEDED FOR DIZZINESS SOLD: 08/14/2020 [facility] Propranolol Hydrochloride 40 MG Oral Tablet Propranolo l HCl 40MG Oral Tablet Propranolol HCl 40MG Oral Tablet 10/10/2018 12:00:00 AM EST aborted propranolol hydrochloride 40 MG Oral Tablet [facility] ( Adis Ingram MD [facility]) Dicyclomine Hydrochloride 10 MG Oral Cap sienna Dicyclomine HCl 10MG Oral Capsule, conventional Dicyclomine HCl 10MG Oral Capsule, conventional 2017 12:00:00 AM EDT 1 aborted dicyclomine hyd rochloride 10 MG Oral Capsule [facility] (Adis Ingram MD [facility]) Insurance Providers Payer name Policy type / Coverage type Policy ID Covered libertarian ID Covered libertarian's relationship to german Policy German Plan Information Fire Ins [facility]) Workers Compensation [id number] 2.840.1.674507.3.227.99.991.94119.0 Self [id number] Fire Ins [facility]) Workers Compensation [id number] 2.16.840.1.244791.3.227.99.991.95214.0 Self [id number] [employer] Ins () Workers Compensation [id number] 2.16.840.1.782222.3.227.99.991.70110.0 Self [id number] [employer] () Workers Compensation [id number] 2.16.840.1.763207.3.227.99.991.75594.0 Self [id number] [place] [employer] () Workers Compensation [id number] 2.16.840.1.927198.3.227.99.991.00548.0 Self [id number] [place] [employer] () Workers Compensation [id number] 2.16.840.1.918893.3.227.99.991.13821.0 Self [id number] [place] [employer] () Workers Compensation [id number] 2.16.840.1.372058.3.227.99.991.23911.0 Self [id number] [place] [employer] () Workers Compensation [id number] 2.16.840.1.403868.3.227.99.991.11672.0 Self [id number] [place] [employer] () Workers Compensation [id number] 2.16.840.1.339288.3.227.99.991.00474.0 Self [id number] [place] [employer] () Workers Compensation [id number] 2.16.840.1.839239.3.227.99.991.85822.0 Self [id number] [place] [employer] () Workers Compensation [id number] 2.16.840.1.082942.3.227.99.991.81138.0 Self [id number] [place] [employer] () Workers Compensation [id number] 2.16.840.1.630764.3.227.99.991.90036.0 Self [id number] [place] [employer] () Workers Compensation [id number] 2.16.840.1.692819.3.227.99.991.90215.0 Self [id number] [place] [employer] () Workers Compensation [id number] 2.16.840.1.984400.3.227.99.991.96328.0 Self [id number] [place] [employer] () Workers Compensation [id number] 2.16.840.1.975720.3.227.99.991.25530.0 Self [id number] [place] [employer] () Workers Compensation [id number] 2.16.840.1.233565.3.227.99.991.46598.0 Self [id number] [place] [employer] () Workers Compensation [id number] MRN.[id number] Self [id number] [place] [employer] () Workers Compensation [id number] 2.16.840.1.182657.3.227.99.991.12235.0 Self [id number] [place] [employer] () Workers Compensation [id number] 2.16.840.1.905735.3.227.99.991.75924.0 Self [id number] [place] [employer] () Workers Compensation [id number] 2.16.840.1.015453.3.227.99.991.89868.0 Self [id number] [place] [employer] () Workers Compensation [id number] 2.16.840.1.991830.3.227.99.991.77220.0 Self [id number] [place] [employer] () Workers Compensation [id number] MRN.991.8241h41j-[id number] Self [id number] [place] [employer] () Workers Compensation [id number] [id number] 2.16.840.1.572008.3.227.99.991.32903.0 Self [id number] [place] [employer] () Workers Compensation [id number] 2.16.840.1.597983.3.227.99.991.66278.0 Self [id number] [place] [employer] () Workers Compensation [id number] 2.16.840.1.625327.3.227.99.991.83482.0 Self [id number] [employer] [id number] 2.16840.1.899626.3.227 .99.4595.48376.0 Family Dependent [id number] DO Not Use (Now #114) Commercial [id number] 2.16840.1.315511.3.227.99.4595.71340.0 Family Dependent [id number] [employer] [id number] 2.16840.1.934569.3.227 .99.4595.63232.0 Family Dependent [id number] [employer] [id number] 2.16840.1.958035.3.227 .99.4595.01487.0 Family Dependent [id number] [employer] [id number] 2.840.1.861529.3.227 .99.4595.49792.0 Family Dependent [id number] [employer] [id number] 2.16840.1.004937.3.227 .99.4595.04669.0 Family Dependent [id number] DO Not Use (Now #114) Commercial [id number] 2.840.1.738468.3.227.99.4595.25779.0 Family Dependent [id number] [employer] [id number] 2.840.1.490857.3.227 .99.4595.08426.0 Family Dependent [id number] DO Not Use (Now #114) Commercial [id number] 2.840.1.145864.3.227.99.4595.27328.0 Family Dependent [id number] DO Not Use (Now #114) Commercial [id number] 2.16840.1.508839.3.227.99.4595.56907.0 Family Dependent [id number] [employer] [id number] 2.16.840.1.780889.3.227 .99.4595.43490.0 Family Dependent [id number] DO Not Use (Now #114) Commercial [id number] 2.840.1.912550.3.227.99.4595.42504.0 Family Dependent [id number] [employer] Commercial [id number] Family Dependent DO Not Use (Now #114) Commercial [id number] 2.0.1.021741.3.227.99.4595.79597.0 Family Dependent [id number] [facility] (pr) Medigap Part B [id number] MRN.991.9479d02m-[id number] [id number] Family Dependent [id number] Medicare Natl Govt Servic Medicare Primary [id number] Self WPS For Life Medigap Part B [id number] 2.0.1.628847.3.227.99.4595.38722.0 Family Dependent [id number] Medicare Natl Govt Servic Medicare Primary [id number] 2.0.1.036018.3.227.99.4595.34536.0 Self [id number] WPS For Life Medigap Part B [id number] 2.0.1.005871.3.227.99.4595.68299.0 Family Dependent [id number] Medicare Natl Govt Servic Medicare Primary [id number] 2.0.1.771372.3.227.99.4595.65297.0 Self [id number] Medicare Natl Govt Servic Medicare Primary [id number] 2.0.1.459028.3.227.99.4595.30314.0 Self [id number] WPS For Life Medigap Part B [id number] 2.0.1.359105.3.227.99.4595.75328.0 Family Dependent [id number] WPS For Life Medigap Part B [id number] 2.0.1.887171.3.227.99.4595.33835.0 Family Dependent [id number] Medicare Natl Govt Servic Medicare Primary [id number] 2.16840.1.201480.3.227.99.4595.03934.0 Self [id number] Medicare Natl Govt Servic Medicare Primary [id number] 2.16840.1.988944.3.227.99.4595.60320.0 Self [id number] Medicare Natl Govt Servic Medicare Primary [id number] 2.16840.1.146635.3.227.99.4595.85853.0 Self [id number] WPS For Life Medigap Part B [id number] 2.0.1.486372.3.227.99.4595.04357.0 Family Dependent [id number] WPS For Life Medigap Part B [id number] 2.840.1.266229.3.227.99.4595.49171.0 Family Dependent [id number] Medicare Natl Govt Servic Medicare Primary [id number] 2.840.1.231030.3.227.99.4595.50983.0 Self [id number] FOR LIFE [id number] SP [id number] WPS For Life Medigap Part B [id number] 2.840.1.160014.3.227.99.4595.44605.0 Family Dependent [id number] Medicare Natl Govt Servic Medicare Primary [id number] 2.0.1.939361.3.227.99.4595.80961.0 Self [id number] WPS For Life Medigap Part B [id number] 2.840.1.626844.3.227.99.4595.03900.0 Family Dependent [id number] WPS For Life Medigap Part B [id number] 2.840.1.266919.3.227.99.4595.54261.0 Family Dependent [id number] WPS For Life Medigap Part B [id number] 2.0.1.944066.3.227.99.4595.70737.0 Family Dependent [id number] [facility] [id number] 2.0.1.024101.3.227.99.4595.93504.0 Self [id number] [facility] Primary [id number] 2.0.1.141482.3.227.99.4595.75426.0 Self [id number] FOR LIFE [id number] [facility] [id number] Medicare [facility]l [facility] Primary [id number] 2.0.1.110297.3.227.99.4595.05462.0 Self [id number] WPS For Life Medigap Part B [id number] 20.1.672085.3.227.99.4595.96793.0 Family Dependent [id number] WPS For Life Medigap Part B [id number] .1.868650.3.227.99.4595.09528.0 Family Dependent [id number] [facility] Primary [id number] 09.23.830.1.478063.3.227.99.4595.32534.0 Self [id number] MEDICARE [id number] SP [id number] A Medicare Natl [facility] Primary [id number] 09.23.830.1.740889.3.227.99.4595.93345.0 Self [id number] MEDICARE [id number] SP [id number] A MEDICARE [id number] SP [id number] WPS For Life Medigap Part B 43011 Family Depende nt WPS For Life Medigap Part B [id number] 20.1.029412.3.227.99.4595.22236.0 Family Dependent [id number] [facility] Commercial [id number] 09.23.830.1.051004.3.227.99.991.57833.0 Family Dependent 0 [id number] [place] [id number] 2.16.840.1.127013.3.227.99.991.69424.0 Family Dependent 0 [id number] [place] [id number] 2.16.840.1.270285.3.227.99.991.58747.0 Self 1 [id number] [place] [id number] 2.16.840.1.445141.3.227.99.991.55706.0 Family Dependent 0 [id number] [place] Medicare Primary [id number] 2.16.840.1.012559.3.227.99.991.78322.0 Self 1 [id number] [place] [id number] 2.16.840.1.733400.3.227.99.991.87443.0 Family Dependent 0 [id number] [place] Medicare Primary [id number] 2.16.840.1.243441.3.227.99.991.50311.0 Self 1 [id number] [place] [id number] 2.16.840.1.269866.3.227.99.991.42949.0 Family Dependent 0 [id number] [place] Medicare Primary [id number] 2.16.840.1.632096.3.227.99.991.97439.0 Self 1 [id number] [place] [id number] 2.16.840.1.054244.3.227.99.991.01844.0 Family Dependent 0 [id number] [place] Medicare Primary [id number] 2.16.840.1.820260.3.227.99.991.66281.0 Self 1 [id number] [place] Medicare Primary [id number] 2.16.840.1.746065.3.227.99.991.44419.0 Self 6 [id number] [place] [id number] 2.16.840.1.140357.3.227.99.991.43853.0 Family Dependent 0 [id number] [place] Medicare Primary [id number] 2.16.840.1.006515.3.227.99.991.58801.0 Self 6 [id number] [place] [id number] 2.16.840.1.305375.3.227.99.991.20332.0 Family Dependent 0 [id number] [place] Medicare Primary [id number] 2.16.840.1.172784.3.227.99.991.11753.0 Self 6 [id number] [place] [id number] 2.16.840.1.816444.3.227.99.991.55926.0 Family Dependent 0 [id number] [place] Medicare Primary [id number] 2.16.840.1.070013.3.227.99.991.63326.0 Self 6 [id number] [place] [id number] 2.16.840.1.705590.3.227.99.991.85929.0 Family Dependent 0 [id number] [place] Medicare Primary [id number] 2.16.840.1.186005.3.227.99.991.72402.0 Self 6 [id number] [place] [id number] 2.16.840.1.830498.3.227.99.991.67444.0 Family Dependent 0 [id number] [place] Medicare Primary [id number] 2.16.840.1.272830.3.227.99.991.41840.0 Self 6 [id number] [place] [id number] 2.16.840.1.524174.3.227.99.991.87468.0 Family Dependent 0 [id number] [place] Medicare Primary [id number] 2.16.840.1.146454.3.227.99.991.24354.0 Self 6 [id number] [place] Medicare Primary [id number] 2.16.840.1.885489.3.227.99.991.10476.0 Self 1 [id number] [place] [id number] 2.16.840.1.923518.3.227.99.991.50295.0 Family Dependent 0 [id number] Medicare [place] Medicare Primary [id number] 2.16.840.1.265482.3.227.99.991.64457.0 Self 1 [id number] [place] [id number] 2.16.840.1.589752.3.227.99.991.36208.0 Family Dependent 0 [id number] [place] [id number] MRN.991.7263n25j-[id number] Family Dependent [id number] Medicare [place] Medicare Primary [id number] 2.16.840.1.046431.3.227.99.991.61042.0 Self 1 [id number] [place] [id number] 2.16840.1.436320.3.227.99.991.57025.0 Family Dependent 0 [id number] Medicare [place] Medicare Primary [id number] 2.16.840.1.090597.3.227.99.991.71923.0 Self 1 [id number] [place] [id number] 2.16840.1.649059.3.227.99.991.23573.0 Family Dependent 0 [id number] Medicare [place] Medicare Primary [id number] MRN.991.2807l37p-[id number] Self [id number] Medicare [place] Medicare Primary [id number] 2.16.840.1.624005.3.227.99.991.17506.0 Self 1 [id number] [place] [id number] 2.16840.1.196093.3.227.99.991.03790.0 Family Dependent 0 [id number] [place] [id number] 2.16.840.1.542047.3.227.99.991.98279.0 Family Dependent 0 [id number] Medicare [place] Medicare Primary [id number] 2.16.840.1.830099.3.227.99.991.19807.0 Self 1 [id number] [place] [id number] 2.16.840.1.211514.3.227.99.991.31273.0 Family Dependent 0 [id number] Medicare [place] Medicare Primary [id number] 2.16.840.1.547836.3.227.99.991.14847.0 Self 1 [id number] [place] [id number] 2.16.840.1.119387.3.227.99.991.51767.0 Family Dependent 0 [id number] [place] [id number] N.991.3989x52n-[id number] Family Dependent [id number] Medicare [place] Medicare Primary [id number] 2.16.840.1.775946.3.227.99.991.73362.0 Self 1 [id number] [place] [id number] 2.16.840.1.081166.3.227.99.991.73289.0 Family Dependent 0 [id number] Medicare [place] Medicare Primary [id number] 2.16.840.1.704986.3.227.99.991.17460.0 Self 1 [id number] [place] [id number] 2.16.840.1.051526.3.227.99.991.74544.0 Family Dependent 0 [id number] Medicare [place] Medicare Primary [id number] 2.16.840.1.702945.3.227.99.991.55748.0 Self 1 [id number] [place] [id number] 2.16.840.1.228981.3.227.99.991.06669.0 Family Dependent 0 [id number] [place] Medicare Primary [id number] MRN.991.7799d34z-[id number] Self [id number] Medicare [place] Medicare Primary [id number] 2.16.840.1.399340.3.227.99.991.76099.0 Self 1 [id number] [facility] Commercial [id number] 2.16.840.1.556904.3.227.99.991.00737.0 Family Dependent 0 [id number] Medicare [place] Medicare Primary [id number] 2.16.840.1.248173.3.227.99.991.22902.0 Self 1 [id number] [place] [employer] (TFL) Medigap Part B [id number] 2.16840.1.583077.3.227.99.991.49966.0 Family Dependent 0 [id number] [place] [employer] (TFL) Medigap Part B [id number] MRN.[id number] Family Dependent [id number] [employer] (TFL) Medigap Part B [id number] MRN.991.4839v39v-[id number] Family Dependent [id number] [place] [employer] (TFL) Medigap Part B [id number] 2.16.840.1.392406.3.227.99.991.25440.0 Family Dependent 0 [id number] [place] [employer] (TFL) Medigap Part B [id number] 2.16.840.1.777972.3.227.99.991.82752.0 Family Dependent 0 [id number] [place] [employer] (TFL) Medigap Part B [id number] 2.16.840.1.645470.3.227.99.991.94062.0 Family Dependent 0 [id number] [place] [employer] (TFL) Medigap Part B [id number] 2.16.840.1.789391.3.227.99.991.50494.0 Family Dependent 0 [id number] [place] [employer] (TFL) [facility] Part B [id number] 2.16.840.1.455597.3.227.99.991.37712.0 Family Dependent 0 [id number] [place] [employer] (TFL) [facility] Part B [id number] 2.16.840.1.178139.3.227.99.991.36505.0 Family Dependent 0 [id number] [place] [employer] [employer] (TFL) [facility] Part B [id number] 2.16.840.1.989792.3.227.99.991.92116.0 Family Dependent 0 [id number] [place] [employer] (TFL) [facility] Part B [id number] 2.16.840.1.200635.3.227.99.991.56797.0 Family Dependent 0 [id number] [place] [employer] (TFL) [facility] Part B [id number] 2.16.840.1.738165.3.227.99.991.30802.0 Family Dependent 0 [id number] [place] [employer] (TFL) [facility] Part B [id number] 2.16.840.1.508557.3.227.99.991.04743.0 Family Dependent 0 [id number] [place] [employer] (TFL) [facility] Part B [id number] 2.16.840.1.034524.3.227.99.991.00170.0 Family Dependent 0 [id number] [place] [facility] (TFL) [facility] Part B [id number] 2.16.840.1.847974.3.227.99.991.84455.0 Family Dependent 0 [id number] [place] [facility] (TFL) [facility] Part B [id number] 2.16.840.1.713188.3.227.99.991.66450.0 Family Dependent 0 [id number] [place] [facility] [id number] 2.16.840.1.268403.3.227.99.991.65360.0 Family Dependent 0 [id number] [place] [facility] (TFL) [facility] [id number] 2.16.840.1.393376.3.227.99.991.25460.0 Family [id number] [facility] [id number] 2.16.840.1.480948.3.227.99.991.24831.0 Family Dependent 0 [id number] [facility] [id number] 2.16.840.1.672848.3.227.99.991.62264.0 Family Dependent 0 [id number] [employer] Medigap Part B [id number] 2.16.840.1.090219.3.227.99.4595.71849.0 Family Dependent [id number] [employer] Medigap Part B [id number] 2.16.840.1.065814.3.227.99.4595.65599.0 Family Dependent [id number] [employer] Medigap Part B [id number] 2.16.840.1.459012.3.227.99.4595.65258.0 Family Dependent [id number] [employer] Medigap Part B [id number] 2.16.840.1.465349.3.227.99.4595.43617.0 Family Dependent [id number] [employer] Medigap Part B [id number] 2.16.840.1.284855.3.227.99.4595.48889.0 Family Dependent [id number] Medicare Natl Gov't Servi Medicare Primary [id number] 2.16.840.1.664457.3.227.99.1767.38766.0 Self [id number] [facility] [id number] 2.16.840.1.834605.3.227.99.1767.10963.0 Self [id number] [employer] Medigap Part B 800387 2.16.840.1.945814.3.227.99.4595.21685.0 Family Dependent [id number] [employer] Medigap Part B 690739 2.16.840.1.610760.3.227.99.4595.35262.0 Family Dependent [id number] [employer] Medigap Part B 002375 2.16.840.1.146909.3.227.99.4595.66857.0 Family Dependent [id number] [employer] Medigap Part B 535644 2.16.840.1.424268.3.227.99.4595.91302.0 Family Dependent 592725 [employer] Medigap Part B 996832 2.16.840.1.782486.3.227.99.4595.92242.0 Family Dependent 569389 [employer] Medigap Part B 450139 2.16.840.1.260704.3.227.99.4595.25162.0 Family Dependent [id number] [place] Primary [id number] 2.16.840.1.257009.3.227.99.6619.3217.0 Self 6 [id number] For Life Medigap Part B [id number] 2.16.840.1.1138 83.3.227.99.6619.3217.0 Family Dependent [id number] [employer] Medigap Part B 334201 2.16.840.1.660654.3.227.99.4595.88672.0 Family Dependent [id number] [employer] Medigap Part B 884064 2.16.840.1.249461.3.227.99.4595.15152.0 Family Dependent [id number] MEDICARE C [id number] S [id number] A FOR LIFE O [id number] P [id number] MEDICARE C [id number] S [id number] WPS For Life Medigap Part B 2.16.840.1.041271. 3.227.99.8646.61884.0 Family Dependent Medicare [place] Medicare Primary 2.16.840.1.45520 3.3.227.99.8646.98504.0 Self Medicare Part B of [facility] Other 0 [id number] Self 0 MEDICARE [id number] SP [id number] A [employer] Medigap Part B [id number] Family Dependent [id number] Medicare Part B of [facility] Other 0 [id number] Self 0 Medicare C [id number] SELF [id number] For Life F [id number] SELF [id number] [facility]BA [facility] [id number] SP [id number] Problems, Conditions, and Diagnoses Code Display Name Description Problem Type Effective Dates Data Source(s) 776360005 Transient cerebral ischemia Transient cerebral ischemi a Problem 08/29/2020 12:00:00 AM EST MEDENT ([facility], ) [id number] Vertigo Vertigo Problem 08/29/2020 12:00:00 AM ES T MEDDELGADO ([facility], ) Surgeries/Procedures Procedure Description Date Indications Data Source(s) OFFICE OUTPATIENT VISIT 25 MINUTES 03/05/2021 12:00:00 AM EDBrenda GRIFFIN ([facility]) Surgical / procedural history Hysterectomy 1970, Morg ani Hernia 2013 Surgical / procedural history Hysterectomy 1971, Morgani Hernia 2014 02/05/2021 12:00:00 AM MEG BOWERS (Adis Ingram MD [facility]) 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 Duncan 201802/05/2021 12:00:00 AM MEG BOWERS (Adis mckeon MD [facility]) ARTHROCENTESIS ASPIR&/INJECTION MAJOR JT/BURSA 021 12:00:00 AM EDBrenda GRIFFIN ([facility] ) ARTHROCENTESIS ASPIR&/INJECTION MAJOR JT/BURSA 021 12:00:00 AM EDT MEDENT ([facility] ) ARTHROCENTESIS ASPIR&/INJECTION MAJOR JT/BURSA 021 12:00:00 AM EDT MEDENT ([facility] ) OFFICE OUTPATIENT VISIT 25 MINUTES 01/01/2021 12:00:00 AM EDT MEDENT ([facility]) ARTHROCENTESIS ASPIR&/INJECTION MAJOR JT/BURSA 021 12:00:00 AM EDT MEDENT ([facility]) RADIOLOGIC EXAM KNEE COMPLETE 4/MORE VIEWS 10/27/2020 12:00:00 AM EDT MEDENT ([facility]) RADIOLOGIC EXAM KNEE COMPLETE 4/MORE VIEWS 10/27/2020 12:00:00 AM EDT MEDENT ([facility]) Mammogram 09/24/2020 12:00:00 AM EST M EDENT ([facility]) Magnetic Resonance Angiogtaphy Head W/O Contrast Material(S) 09/09/2020 12:00:00 AM EST MED[facility] ([facility] ) Magnetic Resonance Angiogtaphy Head W/O Contrast Material(S) 09/09/2020 12:00:00 AM EST [facility] ([facility] ogy, ) Magnetic Resonance Angiography Neck W/O Contrast Materials 09/09/2020 12:00:00 AM EST [facility] ([facility], ) Magnetic Resonance Angiography Neck W/O Contrast Materials 09/09/2020 12:00:00 AM EST [facility] ([facility], ) MRI BRAIN BRAIN STEM W/O CONTRAST MATERIAL 09/09/2020 12:00:00 AM EST [facility] ([facility], ) MRI BRAIN BRAIN STEM W/O CONTRAST MATERIAL 09/09/2020 12:00:00 AM EST [facility] ([facility], ) OFFICE OUTPATIENT VISIT 15 MINUTES 09/05/2020 12:00:00 AM EST [facility] ([facility]) ARTHROCENTESIS ASPIR&/INJECTION MAJOR JT/BURSA 12:00:00 AM EST [facility] ([facility] ) Results ID Date Data Source [id number] 06/01/2021 02:09:00 PM EDT [facility] Name Value Range Interpretation Code Description Data Giovanna rce(s) Supporting Document(s) SARS-CoV-2 RNA Resp Ql PHOEBE+probe Negative [facility] This lab was ordered by [facility] and reported by [employer]. ID Date Data Source [id number] 06/01/2021 11:50:00 AM EDT [facility] ([facility]) Name Value Range Interpretation Code Description Data Giovanna rce(s) Supporting Document(s) Bacteria identified in Urine by Culture Laboratory test result [facility] FULL REPORT IN LAB NOTES (e[facility] and [facility] ). NO GROWTH CLINICAL SIGNIFICANCE 1 ORGANISM ID Date Data Source [id number] 06/01/2021 11:50:00 AM EDT [facility] ([facility] Name Value Range Interpretation Code Description Data Giovanna rce(s) Supporting Document(s) Appearance, Urine Laboratory test result [facility]) PH,Urine 5.0 units 5.0-9.0 [facility]) Color, Urine Laboratory test result MEDE NT ([facility]) Specific [place] Urine Auto 1.020 1.002-1.035 [facility] ([facility]) Protein, Urine Auto Laboratory test result [facility] ([facility]) Glucose, Urine (Ua) Auto Laboratory test result [facility] ([facility]) Ketone, Urine Auto Laboratory test result [facility]) Urobilinogen, Urine Auto 0.2 mg/dL 0.0-2.0 MEDEN T ([facility]) Bilirubin, Urine Auto Laboratory test result [facility]) Nitrite, Urine Auto Laboratory test result [facility]) Leukocyte Esterase, Urine Auto Laboratory test result [facility] ([facility]) Blood, Urine Blood Laboratory test result [facility]) WBC, Urine Auto 2 /HPF 0-3 [facility] ([facility]) RBC, Urine Auto 0 /HPF 0-3 [facility] ([facility]) Squamous Epithelial Cell Ur AU 3 /HPF 0-6 [facility] ([facility]) Bacteria, Urine Auto Laboratory test result [facility] ([facility]) Hyaline Cast, Urine Auto 0 /LPF 0-1 MEDEN T ([facility]) Transitional Epithelial Auto 1 /HPF M EDENT ([facility]) Amorphous Sediment Laboratory test result [facility]) ID Date Data Source [id number] 06/01/2021 11:49:00 AM EDT [facility] ([facility] Name Value Range Interpretation Code Description Data Giovanna rce(s) Supporting Document(s) Glucose [Mass/volume] in Serum or Plasma 89 mg/dL 74-99 [facility] ([facility]) 100-125 mg/dL PRE-DIABETES/FASTING >126 mg/dL DIABETES/FASTING Creatinine 1.0 mg/dL 0.6-1.3 [facility] ([facility]) Urea nitrogen [Mass/volume] in Serum or Plasma 11 mg/dL 7-18 [facility] Chloride [Moles/volume] in Serum or Plasma 101 meq/L 98-107 [facility] ([facility]) Potassium [Moles/volume] in Serum or Plasma 4.1 meq/L 3.5-5.1 [facility] ([facility]) Sodium [Moles/volume] in Serum or Plasma 138 meq/L 136-145 [facility] ([facility]) Calcium [Mass/volume] in Serum or Plasma 9.6 mg/dL 8.5-10.1 [facility]) Glomerular filtration rate/1.73 sq M pre dicted among non-blacks [Volume Rate/Area] in Serum or Plasma by Creatinine-based formula (MDRD) 54 mL/min [facility]) Carbon dioxide, total [Moles/volume] in Serum or Plasma 32 meq/L 21 -32 [facility] Glomerular filtration rate/1.73 sq M pre dicted among blacks [Volume Rate/Area] in Serum or Plasma by Creatinine-based formula (MDRD) Laboratory test result [facility] ([facility]) <content>CHRONIC KIDNEY DISEASE STAGING PER NKF</content>
<content></content>
<content>STAGE I & II GFR >= 60 NORMAL TO MILDLY DECREASED</content>
<content>STAGE III GFR 30-59 MODERATELY DECREASED</content>
<content>STAGE IV GFR 15-29 SEVERELY DECREASED</content>
<content>STAGE V GFR <15 VERY LITTLE GFR LEFT</content>
<content>ESRD GFR <15 ON SURVEYOR HYDROGRAPHIC</content>
<content></content> ID Date Data Source [id number] 06/01/2021 11:49:00 AM EDT [facility] ([facility]) Name Value Range Interpretation Code Description Data Giovanna rce(s) Supporting Document(s) Leukocytes [#/volume] in Blood by Automated count 4.0 x10*3/UL 4.1-10 .9 [facility] Erythrocytes [#/volume] in Blood by Automated count 5.05 x10*6/UL 4.2 0-6.30 [facility]) Hemoglobin [Mass/volume] in Blood 15.2 g/dL 12.0-18.0 [facility] ([facility]) MCV 90.3 fL 80.0-97.0 [facility] ([facility]) MCH 30.2 pg 26.0-32.0 [facility] ([facility]) Hematocrit [Volume Fraction] of Blood by Automated count 45.7 % 3 7.0-51.0 [facility] MCHC 33.4 g/dL 31.0-38.0 [facility] ([facility]) Erythrocyte distribution width [Ratio] by Automated count 13.4 % 11.6-13.7 [facility] ([facility]) Lymph % 19.1 % 10.0-58.5 [facility] ([facility]) Platelets [#/volume] in Blood by Automated count 206 x10*3/UL 140-440 [facility] MPV 8.8 FL 7.8-11.0 [facility] Mid % 4.9 % 1.7-9.3 [facility] ([facility]) Neut % 76.0 % 37.0-92.0 [facility] Lymph # 0.7 x10*3/UL 0.6-4.1 [facility] ([facility]) Mid # 0.2 x10*3/UL 0.1-0.6 [facility] ([facility]) Neut # 3.1 x10*3/UL 2.0-7.8 [facility] ([facility]) ID Date Data Source [id number] 05/19/2021 10:26:26 AM EDT [facility] PCName: November ArnaldoDOB: 1945Provider: Aris Pozo: 05/19/2021 Reason For VisitAprkwesi Mcintosh is here today for her right knee. Tawnya had her second Covid vaccine on . Tawnya Mcintosh is here for a history and physical. Expected DOS: 06/04/21. Patient is retired. History of Present IllnessAprkwesi presents to clinic for preop evaluation for planned right total knee arthroplasty to be performed at the surgical center June 04, 2021. Patient continues to report significant right knee pain and discomfort with all activities of daily living and denies any changes to her medical history since last being seen in clinic. Results/DataX-rays of the right knee including AP, lateral, and merchant views previously performed were interpreted with the patient. There are severe degenerative changes of the knee with joint space narrowing with bone on bone, subchondral sclerosis, and osteophyte formation. There is no radiographic evidence of AVN, fracture, or dislocation. AssessmentRight knee primary osteoarthritis Plan Advance Directive (SOS) Follow Up Follow-up Status: Complete Done: 19May2021 Ordered;For: Joint pain, knee; Ordered By: Marc Pozo Performed: Due: 02Jun2021; Last Updated By: Felecia Kern; 05/19/2021 10:16:30 AM Plan: - I discussed the diagnosis and treatment options in detail with the patient.- I discussed the surgical procedure, recovery period, and protocol for pain management, expected post-operative course in detail.- I discussed the potential benefits of the surgery including pain relief and improved range of motion as well as the inherent risks including but are not limited to incomplete resolution of symptoms, infection, dislocation, leg length inequality requiring shoe lift, fracture, implant loosening, hardware failure, nerve or vascular injury, need for further surgery, deep vein thrombus, pulmonary embolism.- The patient has verbalized understanding of these risks and wishes to proceed and surgical consent was signed in the office today.Discussed COVID 19. Discussed risks of infection, spread of infection, mortality from infection. Patient does NOT want to cancel/delay. Discussed infection and complication risks. Patient is planning to do PT and to go home. Discussed I recommended canceling if they do not think they will go home after surgery that I would not offer surgery to patients planning to go to rehab. They understand the risks and want to proceed with surgery as scheduled. Discussed potential lack of PT and need to be diligent with home exercise program. Signatures Electronically signed by : Marc Pozo M.D.; May 19 2021 10:26AM EST (Author) Name Value Range Interpretation Code Description Data Giovanna rce(s) Supporting Document(s) ID Date Data Source [id number] 05/05/2021 10:57:16 AM EDT [facility] PCName: Tawnya McintoshDOB: 1945Provider: Aris Pozo: 05/05/2021 Reason For VisitSOS Patient Intake: Tawnya Mcintosh is here today for her patti. knees. Tawnya had her second Covid vaccine on 09/2020. Tawnya Mcintosh is a new patient. SOS Occupation and Work Status: Patient is retired. History of Present IllnessApril is a 75-year-old female presenting to clinic for evaluation of bilateral knee pain with the right worse than left. Patient reports that she has been experiencing bilateral knee pain for the past few years. Patient rates their pain as a 9 on a scale of 1-10 and reports the use of over the counter medications including Tylenol and NSAIDS. Patient denies any previous trauma and denies the use of any assistive devices. Additionally patient reports a history of physical therapy, prior numerous steroid and Visco injections with the last one performed in January 2021 without any significant relief of her symptoms, but denies any previous surgeries of the knees. Patient also states that their pain has been constant with all activities of daily living and localizes her pain and discomfort in both of her knees to the medial joint line. Results/DataX-rays of the bilateral knee including AP, lateral, and merchant views previously performed were interpreted with the patient. There are severe degenerative changes of the knee with joint space narrowing with bone on bone, subchondral sclerosis, and osteophyte formation. There is no radiographic evidence of AVN, fracture, or dislocation. AssessmentBilateral knee primary osteoarthritis Plan Pre Op Anemia (CBCD, RUIZ, Total Iron=FE, UIBC, TIBC, IRON % SATURATION, Albumin);Status:Active; Requested for:05May2021; Perform:Outside Facility; Due:15May2021; Last Updated By:Felecia Kern; 05/05/2021 10:55:50 AM;Ordered; For:Joint pain, knee, Osteoarthritis of right knee, Pre-op exam; Ordered By:Marc Pozo;Fax Results To (De[facility] Instruction) : Rosalinda Gramajo Tobacco Use Screeni ng; Status:Complete; Done: 05May2021 Perform:Not Applicable;Ordered; For:SocHx: Non-smoker; Ordered By:Felecia Kern; Plan: - I discussed the diagnosis and treatment options in detail with the patient.- Patient has tried conservative treatment including anti-inflammatories, activity modification, physical therapy, use of cane, injections. Given the failure of these conservative measures, the patient is a good candidate for an elective right knee arthroplasty.- I discussed the surgical procedure, recovery period, and protocol for pain management, expected post-operative course in detail.- I also discussed the SOS Joint Replacement Patient Education Folder, which has been given to the patient for review, as well as the importance of attending the Total Joint Preparation Class.<OBX.5.1><OBX.5.1.1>- The patient has verbalized understanding of these risks and wishes to proceed with elective right total knee arthroplasty surgery to be performed at the surgical center using Funk </OBX.5.1.1><OBX.5.1.2> Nephew implants.</OBX.5.1.2></OBX.5.1>- The patient will need to obtain pre-operative medical clearance. Signatures Electronically signed by : Marc Pozo M.D.; May 05 2021 10:57AM EST (Author) Name Value Range Interpretation Code Description Data Giovanna rce(s) Supporting Document(s) ID Date Data Source [id number] 03/22/2021 09:07:00 AM EDT [facility] Name Value Range Interpretation Code Description Data Giovanna rce(s) Supporting Document(s) SARS coronavirus 2 RNA Not Detected [facility] This lab was ordered by [facility] and rep orted by [facility]. ID Date Data Source [id number] 03/04/2021 08:53:00 AM EDT [facility] ([facility]) Name Value Range Interpretation Code Description Data Giovanna rce(s) Supporting Document(s) Thyrotropin [Units/volume] in Serum or Plasma by Detec tion limit <= 0.05 mIU/L 3.59 uIU/mL 0.36-3.74 [facility] ([facility] ) ID Date Data Source [id number] 03/04/2021 08:53:00 AM EDT [facility] ([facility]) Name Value Range Interpretation Code Description Data Giovanna rce(s) Supporting Document(s) Cholesterol [Mass/volume] in Serum or Plasma 168 mg/dL 131-200 [facility] ([facility]) Cholesterol in LDL [Mass/volume] in Serum or Plasma by calcu lation 66 CALC 50-159 [facility] ([facility]) Triglyceride [Mass/volume] in Serum or Plasma 63 mg/dL 30-150 [facility] ([facility]) Cholesterol in HDL [Mass/volume] in Serum or Plasma 89 mg/dL 35-60 [facility] ([facility]) ID Date Data Source [id number] 03/04/2021 08:53:00 AM EDT [facility] ([facility]) Name Value Range Interpretation Code Description Data Giovanna rce(s) Supporting Document(s) Glucose [Mass/volume] in Serum or Plasma 94 mg/dL 74-99 [facility] ([facility]) 100-125 mg/dL PRE-DIABETES/FASTING >126 mg/dL DIABETES/FASTING Sodium [Moles/volume] in Serum or Plasma 141 meq/L 136-145 [facility] ([facility]) Urea nitrogen [Mass/volume] in Serum or Plasma 14 mg/dL 7-18 [facility] ([facility]) Creatinine 0.9 mg/dL 0.6-1.3 [facility] ([facility]) Potassium [Moles/volume] in Serum or Plasma 4.0 meq/L 3.5-5.1 [facility] ([facility]) Chloride [Moles/volume] in Serum or Plasma 105 meq/L 98-107 [facility] ([facility]) Carbon dioxide, total [Moles/volume] in Serum or Plasma 30 meq/L 21 -32 [facility] ([facility]) Alkaline phosphatase isoenzyme [Units/volume] in Serum or Pl asma 69 mg/dL 46-116 [facility] ([facility]) Calcium [Mass/volume] in Serum or Plasma 9.2 mg/dL 8.5-10.1 [facility] ([facility]) Aspartate aminotransferase [Enzymatic activity/volume] in Serum or Plasma 22 U/L 15-37 [facility] ([facility] ) Total Bilirubin 0.6 mg/dL 0.2-1.0 [facility] ([facility]) Albumin [Mass/volume] in Serum or Plasma 3.7 g/dL 3.4-5.0 [facility] ([facility]) Proteinase 3 Ab [Units/volume] in Serum 6.3 g/dL 6.4-8.2 [facility] ([facility]) Alanine aminotransferase [Enzymatic activity/volume] in Seru m or Plasma 24 U/L 12-78 [facility] ([facility]) A/G Ratio 1.42 CALC 1.00-1.90 [facility]) Glomerular filtration rate/1.73 sq M pre dicted among non-blacks [Volume Rate/Area] in Serum or Plasma by Creatinine-based formula (MDRD) Laboratory test result [facility] ([facility] ) Glomerular filtration rate/1.73 sq M pre dicted among blacks [Volume Rate/Area] in Serum or Plasma by Creatinine-based formula (MDRD) Laboratory test result [facility] ([facility]) <content>CHRONIC KIDNEY DISEASE STAGING PER NKF</content>
<content></content>
<content>STAGE I & II GFR >= 60 NORMAL TO MILDLY DECREASED</content>
<content>STAGE III GFR 30-59 MODERATELY DECREASED</content>
<content>STAGE IV GFR 15-29 SEVERELY DECREASED</content>
<content>STAGE V GFR <15 VERY LITTLE GFR LEFT</content>
<content>ESRD GFR <15 ON SURVEYOR HYDROGRAPHIC</content>
<content></content> ID Date Data Source [id number] 03/04/2021 08:53:00 AM EDT [facility] ([facility]) Name Value Range Interpretation Code Description Data Giovanna rce(s) Supporting Document(s) Leukocytes [#/volume] in Blood by Automated count 3.8 x10*3/UL 4.1-10 .9 [facility] ([facility]) Hemoglobin [Mass/volume] in Blood 14.3 g/dL 12.0-18.0 [facility] Erythrocytes [#/volume] in Blood by Automated count 4.81 x10*6/UL 4.2 0-6.30 [facility] MCV 88.7 fL 80.0-97.0 [facility] ([facility]) Hematocrit [Volume Fraction] of Blood by Automated count 42.7 % 3 7.0-51.0 [facility] ([facility]) MCH 29.8 pg 26.0-32.0 [facility] MCHC 33.6 g/dL 31.0-38.0 [facility] ([facility]) Erythrocyte distribution width [Ratio] by Automated count 12.7 % 11.6-13.7 [facility] ([facility]) MPV 9.1 FL 7.8-11.0 [facility] Platelets [#/volume] in Blood by Automated count 154 x10*3/UL 140-440 [facility] ([facility]) Lymph % 21.2 % 10.0-58.5 [facility] Mid % 5.5 % 1.7-9.3 [facility] Lymph # 0.8 x10*3/UL 0.6-4.1 [facility] ([facility]) Neut % 73.3 % 37.0-92.0 [facility] Mid # 0.2 x10*3/UL 0.1-0.6 [facility] ([facility]) Neut # 2.8 x10*3/UL 2.0-7.8 [facility] ([facility]) ID Date Data Source [id number] 09/24/2020 12:00:00 AM EST [facility] Dinah Nunez DO Patient Name: ARNALDO,[id number] [facility] Date of : 1945[place] [address] [facility]: [facility] [place] [address] Fax: [phone] EXAM: MAMMO SCREENING WITH CADCLINICAL INFORMATION: Screening.Digital screening (2D) mammography was performed bilaterally in the CC andMLO projections. Additionally, breast tomosynthesis (3D mammography) wasperformed bilaterally in the CC and MLO projections.Comparison 07/23/2019, 07/22/2018.She has no current complaint, personal or family history of breast cancer.The Volpara volumetric breast density category is B, there are scatteredareas of fibroglandular density.FINDINGS:There is a moderate amount of residual fibroglandular tissue remainingwhich may reduce the sensitivity of mammography. Large coarsecalcifications are present, of no clinical significance. Scattered lymphnodes are seen in the axilla. Benign arterial calcifications are seen ineach breast. No dominant masses, suspicious cluster of microcalcificationsor secondary signs of malignancy are seen. There is a benign intramammarynode in the upper outer quadrant of the left breast.The 3D tomosynthesis images show no additional findings.IMPRESSION:BI-RADS Category 2 - Benign Finding(s). Stable mammogram. There is noevidence of malignant alteration of the breasts. Followup examinationrecommended in one year.This mammogram was read with the assistance of Prestigos, an FDAapproved computer aided detection system for mammography.Negative x-ray reports should not delay surgical consultation if a dominantor clinically suspicious mass is present.Not all breast cancers can be identified by mammography. Therefore, werecommend that you continue to perform regular breast self-examination andphysical examination and then promptly contact your physician of anyconcerns or changes.Adenosis and dense breasts may obscure an underlying neoplasm.The patient states that a clinical breast examination was over a year ago.Based on the personal and family history information your patient suppliedat the time of imaging, her lifetime risk of breast cancer estimated by theTyrer-Cuzick model is 1%. Given that this patient has less than 20% TCrisk score, no further medical management is currently recommended at thistime.Martín Fontenot, REED/Tyson you for referring TAWNYA MCINTOSH to our office. Electronically Signed - MARTÍN FONTENOT MD 09/24/20 13:31 Name Value Range Interpretation Code Description Data [facility] Supporting Document(s) ID Date Data Source [id number] 08/13/2020 12:46:00 PM EST [facility] ([facility]) Name Value Range Interpretation Code Description Data [facility] Supporting Document(s) Influenza A Amplification Laboratory test result [facility] ([facility]) Negative results do not preclude influen za or RSV virus infection and should not be used as the sole basis for treatment or other patient management decisions. Influenza B Amplification Laboratory test result [facility] ([facility]) Negative results do not preclude influen za or RSV virus infection and should not be used as the sole basis for treatment or other patient management decisions. RSV Amplification Laboratory test result [facility] ([facility]) Negative results do not preclude influen za or RSV virus infection and should not be used as the sole basis for treatment or other patient management decisions. Laboratory test finding (navigational concept) Laboratory test result [facility] ([facility]) A false negative result may occur if a s pecimen is improperly collected, transported or handled. False negative results may also occur if inadequate numbers of organisms are present in the specimen. As with any molecular test, mutations within the target regions of Xpert Xpress SARS-CoV-2 could affect primer and/or probe binding resulting in failure to detect the presence of virus. This test cannot rule out diseases caused by other bacterial or viral pathogens. DISCLAIMER: Testing was performed using the [facility] SARS-CoV-2 test. This test was developed and its performance characteristics determined by [facility]. This test has not been FDA cleared or approved. This test has been authorized by FDA under an Emergency Use Authorization (EUA). This test is only authorized for the duration of time the declaration that circumstances exist justifying the authorization of the emergency use of in vitro diagnostic tests for detection of SARS-CoV-2 virus and/or diagnosis of COVID-19 infection under section 564(b)(1) of the Act, 21 U.S.C. 360bbb-3(b)(1), unless the authorization is terminated or revoked sooner. ID Date Data Source [id number] 08/13/2020 12:46:00 PM EST [facility] Name Value Range Interpretation Code Description Data Giovanna rce(s) Supporting Document(s) SARS coronavirus 2 RNA [Presence] in Res piratory specimen by PHOEBE with probe detection [facility] This lab was ordered by [facility] a nd reported by [facility]. ID Date Data Source [id number] 08/13/2020 02:59:00 AM EST [facility] ([facility] Name Value Range Interpretation Code Description Data Giovanna rce(s) Supporting Document(s) Magnesium [Moles/volume] in Serum or Plasma 2.0 mg/dL 1.8-2.4 [facility] ([facility]) Thyrotropin [Units/volume] in Serum or Plasma by Detec tion limit <= 0.05 mIU/L 4.680 uIU/ML 0.358-3.740 [facility] ([facility] ) ID Date Data Source [id number] 08/13/2020 02:59:00 AM EST MED[facility] ([facility]) Name Value Range Interpretation Code Description Data Giovanna e(s) Supporting Document(s) Glucose, Fasting 105 mg/dL 70-100 [facility] ([facility]) Creatinine For GFR 0.86 mg/dL 0.55-1.30 [facility] ([facility]) Blood Urea Nitrogen 15 mg/dL 7-18 [facility] ([facility]) Glomerular Filtration Rate Laboratory test result MED[facility] ([facility]) <content>Units are mL/min/1.73 m2</content>
<content></content>
<content>Chronic Kidney Disease Staging per NKF:</content>
<content></content>
<content>Stage I & II GFR >=60 Normal to Mildly Decreased</content>
<content>Stage III GFR 30- 59 Moderately Decreased</content>
<content>Stage IV GFR 15-29 Severely Decreased</content>
<content>Stage V GFR <15 Very Little GFR Left</content>
<content>ESRD GFR <15 on SURVEYOR HYDROGRAPHIC</content>
<content></content> Potassium Serum 3.5 meq/L 3.5-5.1 [facility] ([facility]) Sodium Level 141 meq/L 136-145 [facility] ([facility]) Carbon Dioxide Level 26 meq/L 21-32 [facility] ([facility]) Anion Gap 6 meq/L 8-16 [facility] Chloride Level 109 meq/L 98-107 [facility] ([facility]) Calcium Level 8.7 mg/dL 8.8-10.2 [facility] ([facility]) Ast/Sgot 20 U/L 7-37 [facility] ([facility] Alt/SGPT 21 U/L 12-78 [facility] ([facility]) Bilirubin,Total 0.5 mg/dL 0.2-1.0 [facility] ([facility]) Alkaline Phosphatase 68 U/L 45-117 [facility] ([facility]) Total Protein 6.4 GM/DL 6.4-8.2 [facility] ([facility]) Albumin/Globulin Ratio 1.3 1.2-2.2 [facility] ([facility]) Albumin 3.6 GM/DL 3.2-5.2 [facility] ([facility]) ID Date Data Source [id number] 08/13/2020 02:59:00 AM EST [facility] ([facility]) Name Value Range Interpretation Code Description Data Giovanna rce(s) Supporting Document(s) White Blood Count 5.3 10 4.0-10.0 [facility] ([facility]) Hemoglobin 13.5 g/dL 12.0-15.5 [facility] Red Blood Count 4.55 10 4.00-5.40 [facility] ([facility]) Mean Corpuscular Volume 94.1 fl 80.0-96.0 [facility] ([facility]) Hematocrit 42.8 % 36.0-47.0 [facility] Mean Corpuscular Hemoglobin 29.7 pg 27.0-33.0 ME DENT ([facility]) Mean Corpuscular HGB Conc 31.5 g/dL 32.0-36.5 MEDE NT ([facility]) Red Cell Distribution Width 13.2 % 11.5-14.5 WI DENT ([facility]) Nucleated Red Blood Cell % 0.0 % 0-0 MED ENT ([facility]) Platelet Count, Automated 173 10 150-450 MEDE NT ([facility]) Procedure Social History Code Duration Value Status Description Data Source(s ) Smoking 04/10/2021 10:52:19 PM EDT Never smoked tobacco (findi ng) completed Never smoked tobacco (finding) [facility] (Adis Ingram [facility]) Smoking 03/19/2021 09:17:43 AM EDT Never smoked tobacco (findi ng) completed Never smoked tobacco (finding) [facility] (Adis Ingram MD [facility]) Vital Signs ID Date Data Source UNK Name Value Range Interpretation Code Description Data Source(s) Diastolic blood pressure 70 mm[Hg] 70 mm[Hg] [facility] ([facility]) Heart rate 79 /min 79 /min [facility]) Body height 64 [in_i] 64 [in_i] [facility] ([facility]) 5'4" Body weight 196.00 [lb_av] 196.00 [lb_av] MEDEN T ([facility]) Body mass index (BMI) [Ratio] 33.6 kg/m2 33.6 k g/m2 [facility] ([facility]) Systolic blood pressure 126 mm[Hg] 126 mm[Hg] [facility] ([facility]) Heart rate 72 /min 72 /min [facility] ([facility]) Systolic blood pressure 128 mm[Hg] 128 mm[Hg] [facility] ([facility]) Diastolic blood pressure 64 mm[Hg] 64 mm[Hg] [facility] ([facility]) Body height 64 [in_i] 64 [in_i] [facility] ([facility]) 5'4" Body weight 201.12 [lb_av] 201.12 [lb_av] MEDEN T ([facility]) Oxygen saturation in Arterial blood by Pulse oximetry 96 % 96 % [facility] ([facility]) Air Body mass index (BMI) [Ratio] 34.5 kg/m2 34.5 k g/m2 [facility] ([facility]) Body temperature 97.3 [degF] 97.3 [degF] [facility] ([facility] ) Body weight 201.38 [lb_av] 201.38 [lb_av] MEDEN T ([facility] ) Body mass index (BMI) [Ratio] 36.0 kg/m2 36.0 k g/m2 [facility] ([facility] ) Body height 62.75 [in_i] 62.75 [in_i] [facility] ([facility]) 5'2.75" Body height 63 [in_i] 63 [in_i] [facility] ([facility] ) 5'3" Body mass index (BMI) [Ratio] 34.5 kg/m2 34.5 k g/m2 [facility] ([facility] ) Body weight 195.00 [lb_av] 195.00 [lb_av] MEDEN T ([facility] ) [place] body weight 115 [lb_av] 115 [lb_av] MEDEN T ([facility], ) Respiratory rate 12 /min 12 /min [facility] Systolic blood pressure 128 mm[Hg] 128 mm[Hg] M EDENT ([facility]) Body height 64 [in_i] 64 [in_i] [facility] ([facility]) 5'4" Diastolic blood pressure 70 mm[Hg] 70 mm[Hg] [facility] ([facility]) Heart rate 84 /min 84 /min [facility] ([facility]) Body weight 201.00 [lb_av] 201.00 [lb_av] MEDEN T ([facility]) Body mass index (BMI) [Ratio] 34.5 kg/m2 34.5 k g/m2 [facility] ([facility]) Body weight 195.00 [lb_av] 195.00 [lb_av] MEDEN T ([facility] ) [place] body weight 115 [lb_av] 115 [lb_av] [facility] Body mass index (BMI) [Ratio] 34.5 kg/m2 34.5 k g/m2 [facility] ([facility], ) Respiratory rate 12 /min 12 /min [facility] ( [facility] Body height 63 [in_i] 63 [in_i] [facility] ([facility] ) 5'3" Systolic blood pressure 148 mm[Hg] 148 mm[facility]Hg] [facility] Systolic blood pressure 140 mm[Hg] 140 mm[facility]Hg] [facility] RT Arm Diastolic blood pressure 90 mm[Hg] 90 mm[Hg] [facility] RT Arm Body height 64 [in_i] 64 [in_i] [facility] ([facility]) 5'4" Body weight 199.50 [lb_av] 199.50 [lb_av] MEDEN T ([facility]) Body mass index (BMI) [Ratio] 34.2 kg/m2 34.2 k g/m2 [facility] ([facility]) Diastolic blood pressure 88 mm[Hg] 88 mm[Hg] [facility] ([facility]) Heart rate 68 /min 68 /min [facility] ([facility]) Body weight 196.00 [lb_av] 196.00 [lb_av] [facility] Oxygen saturation in Arterial blood by Pulse oximetry 97 % 97 % [facility] ([facility]) RM Air Body mass index (BMI) [Ratio] 33.6 kg/m2 33.6 k g/m2 [facility] ([facility]) Systolic blood pressure 114 mm[Hg] 114 mm[Hg] M EDENT ([facility]) Diastolic blood pressure 72 mm[Hg] 72 mm[Hg] [facility] ([facility]) Heart rate 88 /min 88 /min [facility] ([facility]) Body height 64 [in_i] 64 [in_i] [facility] ([facility]) 5'4"
[2021-06-15] MEDS ORDERED: NS 1,000 ML IV ONE (19:35)
[2021-06-15] MEDS ORDERED: PANTOPRAZOLE SODIUM 40 MG in D5W 50 ML IV SCH (19:45)
[2021-06-15] MEDS ORDERED: ONDANSETRON 4MG/2ML VIAL IV ONE (19:45)
[2021-06-15] MEDS ORDERED: PANTOPRAZOLE 40MG VIAL (C9113 PER 1) IV ONE (19:45)
[2021-06-15 19:49] LABS: HEMATOCRIT 21.2 % (36.0-47.0); MEAN CORPUSCULAR HEMOGLOBIN 31.2 pg (27.0-33.0); MEAN CORPUSCULAR HGB CONC 32.5 g/dl (32.0-36.5); MEAN CORPUSCULAR VOLUME 95.9 fl (80.0-96.0); PLATELET COUNT, AUTOMATED 350 10^3/uL (150-450); RED BLOOD COUNT 2.21 10^6/uL (4.00-5.40); WHITE BLOOD COUNT 10.6 10^3/uL (4.0-10.0)
[2021-06-15 19:54] LABS: HEMOGLOBIN 6.9 g/dl (12.0-15.5)
[2021-06-15 20:10] LABS: BLOOD UREA NITROGEN 27 MG/DL (7-18); CREATININE FOR GFR 0.84 MG/DL (0.55-1.30); GLUCOSE, FASTING 118 MG/DL (70-100)
[2021-06-15 20:11] LABS: INR 1.02; PROTHROMBIN TIME 13.8 SECONDS (12.7-14.5)
[2021-06-15 20:11] LABS: ALT/SGPT 15 U/L (12-78); BILIRUBIN,DIRECT 0.2 MG/DL (0.0-0.2); BILIRUBIN,TOTAL 0.4 MG/DL (0.2-1.0); CALCIUM LEVEL 7.6 MG/DL (8.8-10.2); CARBON DIOXIDE LEVEL 25 MEQ/L (21-32); CHLORIDE LEVEL 106 MEQ/L (98-107); GLOMERULAR FILTRATION RATE > 60.0 (>39); LIPASE 252 U/L (73-393); POTASSIUM SERUM 4.4 MEQ/L (3.5-5.1); SODIUM LEVEL 140 MEQ/L (136-145); TOTAL PROTEIN 4.5 GM/DL (6.4-8.2)
[2021-06-15 20:12] LABS: PARTIAL THROMBOPLASTIN TIME 28.2 SECONDS (25.9-37.0)
[2021-06-15] MEDS ORDERED: ISOVUE-370 76% 100ML VIAL As Ordered ONE (20:42)
--- NOTE | 2021-06-15 21:38 | REPVR ---
PROCEDURE INFORMATION: Exam: CT Abdomen And Pelvis With Contrast Exam date and time: 06/15/2021 8:51 PM Age: 76 years old Clinical indication: Abdominal pain; Epigastric; Additional info: Epigastric pain, hematemesis TECHNIQUE: Imaging protocol: Computed tomography of the abdomen and pelvis with contrast. Radiation optimization: All CT scans at this facility use at least one of these dose optimization techniques: automated exposure control; mA and/or kV adjustment per patient size (includes targeted exams where dose is matched to clinical indication); or iterative reconstruction. Contrast material: ISOVUE 370; Contrast volume: 100 ml; Contrast route: INTRAVENOUS (IV); COMPARISON: CT ABD/PEL W/IV ORAL CONTRAS 03/08/2018 3:17 PM FINDINGS: Diaphragm: A small hiatal hernia is present. Liver: There is enlargement of the left and caudate lobes of the liver as well as a lobular surface contour of the liver. Findings may indicate the presence of cirrhosis in this patient with no reported history of chronic liver disease. Hepatic steatosis. No focal abnormality demonstrated. Gallbladder and bile ducts: Normal. No calcified stones. No ductal dilation. Pancreas: See "Stomach and bowel" finding. Otherwise unremarkable. Spleen: Normal. No splenomegaly. Adrenal glands: Normal. No mass. Kidneys and ureters: Left renal cysts measure up to 5.1 cm maximally with thin septations in the dominant cyst. No follow-up suggested. Stomach and bowel: Inflammatory changes at the duodenal sweep may indicate acute duodenitis and less likely related to adjacent pancreatitis. Mild diverticulosis is present in the distal colon. No diverticulitis. Appendix: No evidence of appendicitis. Intraperitoneal space: Unremarkable. No free air. No significant fluid collection. Vasculature: The aortoiliac vessels demonstrate mild atherosclerotic calcification. Lymph nodes: Unremarkable. No enlarged lymph nodes. Urinary bladder: Unremarkable as visualized. Reproductive: There has been a hysterectomy. Bones/joints: Slight anterolisthesis of L4 on L5 and L5 on S1. Mild central spinal stenosis L2-L3, moderate to severe central spinal stenosis L3-L4. Soft tissues: Left inguinal hernia without incarceration. IMPRESSION: 1. Possible cirrhosis as described above. 2. A small hiatal hernia is present. 3. Inflammatory changes at the duodenal sweep may indicate acute duodenitis and less likely related to adjacent pancreatitis. 4. There has been a hysterectomy. 5. Mild diverticulosis is present in the distal colon. No diverticulitis. COMMENTS: Consistent with the [employer]'s Incidental Findings Committee white paper (J Am Julius Radiol 2018): Any incidental renal lesion less than 1 cm or classified as too small to characterize, or any incidental cystic renal lesion characterized as simple-appearing, is likely benign. No follow-up imaging is recommended for these lesions per consensus recommendations based on imaging criteria. Electronically signed by: Parviz Pruett On 06/15/2021 21:37:23 PM
--- OUTSIDE RECORDS SUMMARY | 2021-06-15 21:39 | CCD ---
Author Author [facility] Organization [facility] Address Unknown Phone Unavailable Care Team Providers [facility] Drill Operator Helper Name Role Phone Fish, B Victor M [...] Victor M VASQUEZ Unavailable Unavailable Fish, B Victro M VASQUEZ Unavailable Unavailable Fish, B Victor [...] B Victor M VASQUEZ Unavailable Unavailable Fish, [facility], PA-C Unavailable Unavailabl e Fish, [facility], PA-C Unavailable Unavailabl e Fish, [facility], PA-C Unavailable Unavailabl e Fish, [facility], PA-C Unavailable Unavailabl e Fish, [facility], PA-C Unavailable Unavailabl e Fish, [facility], PA-C Unavailable Unavailabl e Fish, [facility], PA-C Unavailable Unavailabl e Fish, [facility], PA-C Unavailable Unavailabl e Fish, [facility], PA-C Unavailable Unavailabl e Fish, [facility], PA-C Unavailable Unavailabl e Fish, [facility], PA-C Unavailable Unavailabl e Fish, [facility], PA-C Unavailable Unavailabl e Fish, [facility], PA-C Unavailable Unavailabl e Fish, [facility], PA-C Unavailable Unavailabl e Fish, [facility], PA-C Unavailable Unavailabl e Fish, [facility], PA-C Unavailable Unavailabl e Fish, [facility], PA-C Unavailable Unavailabl e Fish, [facility], PA-C Unavailable Unavailabl e Fish, [facility], PA-C Unavailable Unavailabl e Fish, [facility], PA-C Unavailable Unavailabl e Fish, [facility], PA-C Unavailable Unavailabl e Fish, [facility], PA-C Unavailable Unavailabl e Fish, [facility], PA-C Unavailable Unavailabl e Fish, [facility], PA-C Unavailable Unavailabl e Fish, [facility], PA-C Unavailable Unavailabl e Fish, [facility], PA-C Unavailable Unavailabl e Fish, [facility], PA-C Unavailable Unavailabl e Fish, [facility], PA-C Unavailable Unavailabl e Fish, [facility], PA-C Unavailable Unavailabl e Fish, [facility], PA-C Unavailable Unavailabl e Fish, [facility], PA-C Unavailable Unavailabl e Fish, [facility], PA-C Unavailable Unavailabl e Fish, [facility], PA-C Unavailable Unavailabl e Fish, [facility], PA-C Unavailable Unavailabl e Fish, [facility], PA-C Unavailable Unavailabl e Fish, [facility], PA-C Unavailable Unavailabl e Enrique, Dinah DO [...] Unavailable Willis Mayo MD Unavailable Unavailable Willis aMyo MD Unavailable Unavailable Willis Mayo MD Unavailable [...] Unavailable Unavailable Lion Luong MD Unavailable Unavailable Loin Luong MD Unavailable Unavailable Lion Luong MD [...] is protected by Article 27-F of the [facility] Public Health law. If you continue you may have access to information: Regarding HIV / AIDS; Provided by facilities licensed or operated by the [facility] Office of Mental Health; or Provided by the [facility] Office for People With Developmental Disabilities. If such information is present, then the following [facility] mandated warning applies: This information has been [...] law may result in a fine or usp sentence or both. A general authorization for the release of medical or other information is NOT sufficient authorization for further disc losure. Family History Family Member Name Family Member Gender Family Member Status Date o f Status Description Data Source(s) Unknown Male Problem [facility] ([facility]) Unknown Male Problem [facility] ([facility] ) Unknown Unknown Problem [facility] ([facility] ) Unknown Unknown Problem [facility] ([facility] ) Encounters Encounter Providers Location Date Indications Data Source(s ) Outpatient Attender: Marc Lazoer: Dinah Seymour 05/19/2021 10:26:26 AM EDT [facility] Recurring Patient Referrer: Dinah Nunez DO 05/09/2021 06:2 9:35 AM EDT [facility] Outpatient Attender: Marc Waldrop: Dinah Seymour 05/05/2021 10:57:16 AM EDT [facility] Recurring Patient Referrer: Dinah Nunez DO 05/05/2021 10:0 8:04 AM EDT [facility] Recurring Patient Referrer: Dinah Nunez DO 04/24/2021 08:1 5:18 AM EDT [facility] Recurring Patient Referrer: Dinah Nunez DO 04/23/2021 02:5 5:29 PM EDT [facility] Outpatient Attender: Dinah Man 03/05 02:00:00 PM EDT [facility] ([facility] ) <td ID="encounterTypeDescriptionID0">1 Y ear Follow-Up</td><td>Lynette Kirkpatrick DO</td><td>Adis Rojas MD [facility]</td><td>02/05/2021</td><td>12:47PM</td><td>1:49PM</td><td></td>Outpatient Attender: LYNETTE Ferguson MD [facility] 02/05/2021 12:47:00 PM EDT - 02/05/2021 01:49:00 PM EDT [facility] (Adis Ingram MD [facility]) Office Visit Attender: Victor M Catalan MD Physical Therapy 2020 09:00:00 AM EDT [facility] ([facility]) Outpatient Attender: Victor M Catalan MD Physical Therapy 01/01/2021 0 1:45:00 PM EDT [facility] ([facility]) Outpatient Attender: Gloria Luong MD [facility] 11/11/2020 02:45:00 PM EDT [facility] ([facility]) Outpatient Attender: Dinah Man 09/05 01:30:00 PM EST [facility] ([facility] ) Outpatient Attender: Gloria Luong MD [facility] 08/29/2020 07:00:00 AM EST [facility] ([facility]) Outpatient Attender: Jenelle Nathan 01:45:00 PM EST [facility] ([facility] ) Outpatient Attender: Dinah Man 08/18 08:00:00 AM EST [facility] ([facility] ) OFFICE OUTPATIENT VISIT 15 MINUTES Attender: María Elena WILSON PA-C Physical Therapy 06/09/2020 09:30:00 AM EST [facility] ([facility]) Immunizations Vaccine Date Status Description Data Source(s) COVID-19 VACCINE Moderna 09/18/2020 12:00:00 AM EST completed [facility] Vaccine Series Complete: YESThis Data wa s Submitted to [facility] Via [facility]. COVID-19 VACCINE Moderna 08/21/2020 12:00:00 AM EST completed [facility] Vaccine Series Complete: NOThis Data was Submitted to [facility]. This CVX code allows reporting of a vacc ination when formulation is unknown (for example, when recording a Influenza vaccination when noted on a vaccination card) 04/17/2020 09:38:00 AM EDT completed GRAYSON T ([facility]) INFLUENZA VACCINE QUADRIVALENT (65 YR UP)/MF59 [...] Euflexxa 01/01/2021 12:00:00 AM EDT active [facility] ([facility]) Covid-19 vaccine, Unspecified 09/18/2020 12:00:00 AM EST completed [facility] ([facility]) Medication administered onsite 5 mg 09/05/2020 12:00:00 AM EST tablet 1 TAKE 1 TABLET BY MOUTH 30-60 MINUTES PRIOR TO MRI MAXIMUM DAILY DOSE = 1 TABLET TAKE 1 TABLET BY MOUTH 30-60 MINUTES PRIOR TO MRI MAXIMUM DAILY DOSE = 1 TABLET SOLD: 09/06/2020 [facility] Diazepam 5 MG Oral Tablet Diazepam 09/04/2020 12:00:00 AM EST active [facility] ([facility]) Sodium Chloride 0.111 MEQ/ML Nasal Solution Saline Nasal Spr ay 08/27/2020 12:00:00 AM EST active M EDENT ([facility]) Amoxicillin 500 MG Oral Capsule Amoxicillin 08/27/2020 12:00:00 AM EST completed [facility] ([facility]) 500 mg 08/27/2020 12:00:00 AM EST capsule 21 TAKE ONE CAPSULE BY MOUTH THREE TIMES A DAY FOR 7 DAYS TAKE ONE CAPSULE BY MOUTH THREE TIMES A DAY FOR 7 DAYS SOLD: 08/27/2020 [facility] Covid-19 vaccine, Unspecified 08/21/2020 12:00:00 AM EST completed [facility] ([facility]) Medication administered onsite Meclizine Hydrochloride [...] Oral Tablet [facility] ( Adis Ingram MD [facility]) Dicyclomine Hydrochloride 10 MG Oral Cap sienna Dicyclomine HCl 10MG Oral Capsule, conventional Dicyclomine HCl 10MG Oral Capsule, conventional 2017 12:00:00 AM EDT 1 aborted dicyclomine hyd rochloride 10 MG Oral Capsule [facility] (Adis Ingram MD [facility]) Insurance Providers Payer name Policy type / Coverage type Policy ID Covered democrat ID Covered democrat's relationship to german Policy German Plan Information Fire Ins [facility]) Workers Compensation [id number] 2.840.1.208585.3.227.99.991.14004.0 Self [id number] Fire Ins [facility]) Workers Compensation [id number] 2.16.840.1.341421.3.227.99.991.81916.0 Self [id number] Fire Ins () Workers Compensation [id number] 2.16.840.1.514284.3.227.99.991.92221.0 Self [id number] [employer] Ins () Workers Compensation [id number] 2.16.840.1.538079.3.227.99.991.86299.0 Self [id number] [place] [employer] () Workers Compensation [id number] 2.16.840.1.562133.3.227.99.991.05707.0 Self [id number] [place] [employer] () Workers Compensation [id number] 2.16.840.1.715636.3.227.99.991.02065.0 Self [id number] [place] [employer] () Workers Compensation [id number] 2.16.840.1.087897.3.227.99.991.60111.0 Self [id number] [place] [employer] () Workers Compensation [id number] 2.16.840.1.022804.3.227.99.991.06401.0 Self [id number] [place] [employer] () Workers Compensation [id number] 2.16.840.1.833215.3.227.99.991.38021.0 Self [id number] [place] [employer] () Workers Compensation [id number] 2.16.840.1.829583.3.227.99.991.39038.0 Self [id number] [place] [employer] () Workers Compensation [id number] 2.16.840.1.193689.3.227.99.991.63491.0 Self [id number] [place] [employer] () Workers Compensation [id number] 2.16.840.1.666220.3.227.99.991.71728.0 Self [id number] [place] [employer] () Workers Compensation [id number] 2.16.840.1.352848.3.227.99.991.80645.0 Self [id number] [place] [employer] () Workers Compensation [id number] 2.16.840.1.768493.3.227.99.991.10630.0 Self [id number] [place] [employer] () Workers Compensation [id number] 2.16.840.1.341289.3.227.99.991.19971.0 Self [id number] [place] [employer] () Workers Compensation [id number] 2.16.840.1.451553.3.227.99.991.18268.0 Self [id number] [place] [employer] () Workers Compensation [id number] MRN.[id number] Self [id number] [place] [employer] () Workers Compensation [id number] 2.16.840.1.463160.3.227.99.991.49463.0 Self [id number] [place] [employer] () Workers Compensation [id number] 2.16.840.1.046983.3.227.99.991.82252.0 Self [id number] [place] [employer] () Workers Compensation [id number] 2.16.840.1.321234.3.227.99.991.28594.0 Self [id number] [place] [employer] () Workers Compensation [id number] 2.16.840.1.567016.3.227.99.991.56194.0 Self [id number] [place] [employer] () Workers Compensation [id number] MRN.[id number] Self [id number] [place] [employer] () Workers Compensation [id number] 2.16.840.1.039420.3.227.99.991.29236.0 Self [id number] [place] [employer] () Workers Compensation [id number] 2.16.840.1.073759.3.227.99.991.92498.0 Self [id number] [place] [employer] () Workers Compensation [id number] 2.16.840.1.897570.3.227.99.991.82141.0 Self [id number] [employer] [id number] 2.16840.1.150649.3.227 .99.4595.59905.0 Family Dependent [id number] DO Not Use (Now #114) Commercial [id number] 2.16840.1.602419.3.227.99.4595.82737.0 Family Dependent [id number] [employer] [id number] 2.16840.1.667890.3.227 .99.4595.91987.0 Family Dependent [id number] [employer] [id number] 2.16840.1.899975.3.227 .99.4595.37223.0 Family Dependent [id number] [employer] [id number] 2.840.1.118488.3.227 .99.4595.44419.0 Family Dependent [id number] [employer] [id number] 2.16840.1.127925.3.227 .99.4595.55778.0 Family Dependent [id number] DO Not Use (Now #114) Commercial [id number] 2.840.1.951926.3.227.99.4595.99971.0 Family Dependent [id number] [employer] [id number] 2.840.1.446859.3.227 .99.4595.18616.0 Family Dependent [id number] DO Not Use (Now #114) Commercial [id number] 2.840.1.898943.3.227.99.4595.17528.0 Family Dependent [id number] DO Not Use (Now #114) Commercial [id number] 2.16840.1.651022.3.227.99.4595.70676.0 Family Dependent [id number] [employer] [id number] 2.16.840.1.688594.3.227 .99.4595.51695.0 Family Dependent [id number] DO Not Use (Now #114) Commercial [id number] 2.840.1.936850.3.227.99.4595.88694.0 Family Dependent [id number] L4 [employer] Commercial [id number] Family Dependent DO Not Use (Now #114) Commercial [id number] 2.0.1.522498.3.227.99.4595.63063.0 Family Dependent [id number] Asi (pr) Medigap Part B [id number] MRN.[id number] [id number] Family Dependent [id number] Medicare Natl Govt Servic Medicare Primary [id number] Self WPS For Life Medigap Part B [id number] 2.0.1.756097.3.227.99.4595.79530.0 Family Dependent [id number] Medicare Natl Govt Servic Medicare Primary [id number] 2.0.1.622952.3.227.99.4595.60312.0 Self [id number] WPS For Life Medigap Part B [id number] 2.0.1.265154.3.227.99.4595.84510.0 Family Dependent [id number] Medicare Natl Govt Servic Medicare Primary [id number] 2.0.1.113790.3.227.99.4595.61246.0 Self [id number] Medicare Natl Govt Servic Medicare Primary [id number] 2.0.1.880342.3.227.99.4595.82844.0 Self [id number] WPS For Life Medigap Part B [id number] 2.0.1.254811.3.227.99.4595.30833.0 Family Dependent [id number] WPS For Life Medigap Part B [id number] 2.0.1.921044.3.227.99.4595.55259.0 Family Dependent [id number] Medicare Natl Govt Servic Medicare Primary [id number] 2.16840.1.823228.3.227.99.4595.44362.0 Self [id number] Medicare Natl Govt Servic Medicare Primary [id number] 2.16840.1.687264.3.227.99.4595.01201.0 Self [id number] Medicare Natl Govt Servic Medicare Primary [id number] 2.16840.1.985989.3.227.99.4595.05246.0 Self [id number] WPS For Life Medigap Part B [id number] 2.0.1.985433.3.227.99.4595.62263.0 Family Dependent [id number] WPS For Life Medigap Part B [id number] 2.840.1.530959.3.227.99.4595.66611.0 Family Dependent [id number] Medicare Natl Govt Servic Medicare Primary [id number] 2.840.1.688798.3.227.99.4595.43089.0 Self [id number] FOR LIFE [id number] SP [id number] WPS For Life Medigap Part B [id number] 2.840.1.168201.3.227.99.4595.06285.0 Family Dependent [id number] Medicare Natl Govt Servic Medicare Primary [id number] 2.0.1.227682.3.227.99.4595.73508.0 Self [id number] WPS For Life Medigap Part B [id number] 2.840.1.470203.3.227.99.4595.38396.0 Family Dependent [id number] WPS For Life Medigap Part B [id number] 2.840.1.055343.3.227.99.4595.41847.0 Family Dependent [id number] WPS For Life Medigap Part B [id number] 2.0.1.662786.3.227.99.4595.09665.0 Family Dependent [id number] Medicare Natl [facility] Medicare Primary [id number] 2.0.1.809457.3.227.99.4595.42654.0 Self [id number] Medicare Natl [facility] Medicare Primary [id number] 2.0.1.030578.3.227.99.4595.69511.0 Self [id number] FOR LIFE [id number] [facility] [id number] Medicare Natl [facility] Medicare Primary [id number] 2.0.1.290785.3.227.99.4595.40908.0 Self [id number] WPS For Life Medigap Part B [id number] 20.1.881103.3.227.99.4595.34071.0 Family Dependent [id number] WPS For Life Medigap Part B [id number] .1.028064.3.227.99.4595.93086.0 Family Dependent [id number] Medicare Natl [facility] Medicare Primary [id number] 09.23.830.1.766196.3.227.99.4595.01116.0 Self [id number] MEDICARE [id number] SP [id number] A Medicare Natl [facility] Medicare Primary [id number] 09.23.830.1.077584.3.227.99.4595.54109.0 Self [id number] MEDICARE [id number] SP [id number] A MEDICARE [id number] SP [id number] WPS For Life Medigap Part B [id number] Family Depende nt WPS For Life Medigap Part B [id number] 20.1.277834.3.227.99.4595.70307.0 Family Dependent [id number] [facility] Commercial [id number] 09.23.830.1.366910.3.227.99.991.11111.0 Family Dependent 0 [id number] Theatro [id number] 2.16.840.1.374545.3.227.99.991.44071.0 Family Dependent 0 [id number] [place] Primary [id number] 2.16.840.1.197189.3.227.99.991.08809.0 Self 1 [id number] Theatro [id number] 2.16.840.1.840376.3.227.99.991.90949.0 Family Dependent 0 [id number] Medicare [place] Medicare Primary [id number] 2.16.840.1.062168.3.227.99.991.30153.0 Self 1 [id number] Theatro [id number] 2.16.840.1.127337.3.227.99.991.01008.0 Family Dependent 0 [id number] Medicare [place] Medicare Primary [id number] 2.16.840.1.248842.3.227.99.991.46802.0 Self 1 [id number] Theatro [id number] 2.16.840.1.744904.3.227.99.991.13663.0 Family Dependent 0 [id number] Medicare [place] Medicare Primary [id number] 2.16.840.1.291299.3.227.99.991.95553.0 Self 1 [id number] Theatro [id number] 2.16.840.1.769533.3.227.99.991.68658.0 Family Dependent 0 [id number] Medicare [place] Medicare Primary [id number] 2.16.840.1.327866.3.227.99.991.13895.0 Self 1 [id number] Medicare [place] Medicare Primary [id number] 2.16.840.1.043922.3.227.99.991.53659.0 Self 6 [id number] Theatro [id number] 2.16.840.1.013976.3.227.99.991.03462.0 Family Dependent 0 [id number] Medicare [place] Medicare Primary [id number] 2.16.840.1.483827.3.227.99.991.29689.0 Self 6 [id number] Theatro [id number] 2.16.840.1.804986.3.227.99.991.46121.0 Family Dependent 0 [id number] Medicare [place] Medicare Primary [id number] 2.16.840.1.739298.3.227.99.991.96704.0 Self 6 [id number] Theatro [id number] 2.16.840.1.016385.3.227.99.991.46673.0 Family Dependent 0 [id number] Medicare [place] Medicare Primary [id number] 2.16.840.1.225718.3.227.99.991.96529.0 Self 6 [id number] Theatro [id number] 2.16.840.1.839664.3.227.99.991.45219.0 Family Dependent 0 [id number] Medicare [place] Medicare Primary [id number] 2.16.840.1.138716.3.227.99.991.28560.0 Self 6 [id number] Theatro [id number] 2.16.840.1.520793.3.227.99.991.90030.0 Family Dependent 0 [id number] Medicare [place] Medicare Primary [id number] 2.16.840.1.315561.3.227.99.991.23309.0 Self 6 [id number] Theatro [id number] 2.16.840.1.730620.3.227.99.991.86594.0 Family Dependent 0 [id number] Medicare [place] Medicare Primary [id number] 2.16.840.1.287756.3.227.99.991.94049.0 Self 6 [id number] Medicare [place] Medicare Primary [id number] 2.16.840.1.958680.3.227.99.991.64803.0 Self 1 [id number] Theatro [id number] 2.16.840.1.782806.3.227.99.991.03960.0 Family Dependent 0 [id number] Medicare [place] Medicare Primary [id number] 2.16.840.1.334357.3.227.99.991.39666.0 Self 1 [id number] Theatro [id number] 2.16.840.1.420342.3.227.99.991.82063.0 Family Dependent 0 [id number] Theatro [id number] MRN.[id number] Family Dependent [id number] Medicare Up[place] Medicare Primary [id number] 2.16.840.1.448694.3.227.99.991.32526.0 Self 1 [id number] Theatro [id number] 2.16840.1.073731.3.227.99.991.78652.0 Family Dependent 0 [id number] Medicare Upstate Medicare Primary [id number] 2.16.840.1.907501.3.227.99.991.78922.0 Self 1 [id number] Theatro [id number] 2.16840.1.888350.3.227.99.991.85954.0 Family Dependent 0 [id number] Medicare [place] Medicare Primary [id number] MRN.[id number] Self [id number] Medicare [place] Medicare Primary [id number] 2.16.840.1.771885.3.227.99.991.83934.0 Self 1 [id number] Theatro [id number] 2.16840.1.011429.3.227.99.991.45979.0 Family Dependent 0 [id number] Theatro [id number] 2.16.840.1.684948.3.227.99.991.09587.0 Family Dependent 0 [id number] Medicare Upstate Medicare Primary [id number] 2.16.840.1.718454.3.227.99.991.94142.0 Self 1 [id number] Theatro [id number] 2.16.840.1.373849.3.227.99.991.29062.0 Family Dependent 0 [id number] Medicare Upstate Medicare Primary [id number] 2.16.840.1.058177.3.227.99.991.68598.0 Self 1 [id number] Theatro [id number] 2.16.840.1.245588.3.227.99.991.27463.0 Family Dependent 0 [id number] Theatro [id number].[id number]-[id number] Family Dependent [id number] Medicare Up[place] Medicare Primary [id number] 2.16.840.1.698635.3.227.99.991.07688.0 Self 1 [id number] Theatro [id number] 2.16.840.1.879341.3.227.99.991.13233.0 Family Dependent 0 [id number] Medicare Up[place] Medicare Primary [id number] 2.16.840.1.446444.3.227.99.991.50490.0 Self 1 [id number] Theatro [id number] 2.16.840.1.203995.3.227.99.991.50131.0 Family Dependent 0 [id number] Medicare [place] Medicare Primary [id number] 2.16.840.1.326869.3.227.99.991.05353.0 Self 1 [id number] Theatro [id number] 2.16.840.1.377067.3.227.99.991.04953.0 Family Dependent 0 [id number] Medicare [place] Medicare Primary [id number] MRN.[id number] Self [id number] Medicare [place] Medicare Primary [id number] 2.16.840.1.454282.3.227.99.991.11114.0 Self 1 [id number] [facility] Commercial [id number] 2.16.840.1.506817.3.227.99.991.10232.0 Family Dependent 0 [id number] [place] [id number] 2.16.840.1.307459.3.227.99.991.72319.0 Self 1 [id number] [place] [facility] (TFL) Medigap Part B [id number] 2.16840.1.695486.3.227.99.991.79356.0 Family Dependent 0 [id number] [place] [facility] ([place]) Medigap Part B [id number] Family Dependent [id number] [place] [facility] (TFL) Medigap Part B [id number] Family Dependent [id number] [place] [facility] (TFL) Medigap Part B [id number] 2.16.840.1.116039.3.227.99.991.78339.0 Family Dependent 0 [id number] [place] [facility] (TFL) Medigap Part B [id number] 2.16.840.1.524848.3.227.99.991.47770.0 Family Dependent 0 [id number] [place] [facility] (TFL) Medigap Part B [id number] 2.16.840.1.296802.3.227.99.991.16839.0 Family Dependent 0 [id number] [place] [facility] (TFL) Med[employer]ap Part B [id number] 2.16.840.1.699682.3.227.99.991.93984.0 Family Dependent 0 [id number] [place] [facility] (TFL) [facility] Part B [id number] 2.16.840.1.334055.3.227.99.991.17904.0 Family Dependent 0 [id number] [place] [facility] (TFL) [facility] Part B [id number] 2.16.840.1.533303.3.227.99.991.43738.0 Family Dependent 0 [id number] [place] [facility] (TFL) [facility] Part B [id number] 2.16.840.1.979082.3.227.99.991.67053.0 Family Dependent 0 [id number] [place] [facility] (TFL) [facility] Part B [id number] 2.16.840.1.113613.3.227.99.991.03387.0 Family Dependent 0 [id number] [place] [facility] (TFL) [facility] Part B [id number] 2.16.840.1.820376.3.227.99.991.39324.0 Family Dependent 0 [id number] [place] [facility] (TFL) [facility] Part B [id number] 2.16.840.1.741711.3.227.99.991.37493.0 Family Dependent 0 [id number] [place] [facility] (TFL) [facility] Part B [id number] 2.16.840.1.143298.3.227.99.991.28245.0 Family Dependent 0 [id number] [place] [facility] (TFL) [facility] Part B [id number] 2.16.840.1.318171.3.227.99.991.16489.0 Family Dependent 0 [id number] [place] [facility] (TFL) [facility] Part B [id number] 2.16.840.1.743783.3.227.99.991.13015.0 Family Dependent 0 [id number] [place] [facility] [id number] 2.16.840.1.662126.3.227.99.991.14425.0 Family Dependent 0 [id number] [place] [facility] [id number] Family Dependent 0 [id number] [facility] [id number] Family Dependent 0 [id number] [facility] [id number] Family Dependent 0 [id number] [employer] Medigap Part B [id number] Family Dependent [id number] [employer] Medigap Part B [id number] Family Dependent [id number] [employer] Medigap Part B [id number] Family Dependent [id number] [employer] Medigap Part B [id number] Family Dependent [id number] [employer] Medigap Part B [id number] Family Dependent [id number] Medicare Natl Gov't Servi Medicare Primary [id number] Self [id number] For Life [facility]PS [facility] [id number] Self [id number] [employer] Medigap Part B [id number] Family Dependent [id number] [employer] Medigap Part B [id number] Family Dependent [id number] [employer] Medigap Part B [id number] Family Dependent [id number] [employer] Medigap Part B [id number] Family Dependent [id number] [employer] Medigap Part B [id number] Family Dependent [id number] [employer] Medigap Part B [id number] Family Dependent [id number] Medicare [place] Primary [id number] [id number] Self 6 [id number] For Life Medigap Part B [id number] 2.16.840.1.1138 [id number] Family Dependent [id number] [employer] Medigap Part B [id number] [id number] Family Dependent [id number] [employer] Medigap Part B 468291 [id number] Family Dependent [id number] MEDICARE C [id number] S [id number] A FOR LIFE O [id number] P [id number] MEDICARE C [id number] S [id number] WPS For Life Medigap Part B [id number] Family Dependent Medicare [place]/[facility] Medicare Primary [id number] Self Medicare Part B of [facility] Other 0 [id number] Self 0 MEDICARE [id number] SP [id number] A [employer] Medigap Part B [id number] Family Dependent [id number] Medicare Part B of [facility] Other 0 [id number] Self 0 Medicare C [id number] SELF [id number] For Life F [id number] SELF [id number] PGBA [facility]LY [facility] [id number] SP [id number] Problems, Conditions, and Diagnoses Code Display Name Description Problem Type Effective Dates Data Source(s) 485349919 Transient cerebral ischemia Transient cerebral ischemi a Problem 08/29/2020 12:00:00 AM EST MEDENT ([facility], ) [id number] Vertigo Vertigo Problem 08/29/2020 12:00:00 AM ES T MEDDELGADO ([facility], ) Surgeries/Procedures Procedure Description Date Indications Data Source(s) OFFICE OUTPATIENT VISIT 25 MINUTES 03/05/2021 12:00:00 AM EDBrenda GRIFFIN ([facility]) Surgical / procedural history Hysterectomy 1970, Morg ani Hernia 2013 Surgical / procedural history Hysterectomy 1971, Morgani Hernia 2014 02/05/2021 12:00:00 AM MEG BOWERS (Adis Ingram MD [facility]) 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 Duncan 201802/05/2021 12:00:00 AM MEG BOWERS (Adis mckeon MD [facility]) ARTHROCENTESIS ASPIR&/INJECTION MAJOR JT/BURSA 021 12:00:00 AM EDBrenda GRIFFIN ([facility] ) ARTHROCENTESIS ASPIR&/INJECTION MAJOR JT/BURSA 021 12:00:00 AM EDT MEDENT ([facility] ) ARTHROCENTESIS ASPIR&/INJECTION MAJOR JT/BURSA 021 12:00:00 AM EDT MEDENT ([facility] ) OFFICE OUTPATIENT VISIT 25 MINUTES 01/01/2021 12:00:00 AM EDT MEDENT ([facility]) ARTHROCENTESIS ASPIR&/INJECTION MAJOR JT/BURSA 021 12:00:00 AM EDT MEDENT ([facility]) RADIOLOGIC EXAM KNEE COMPLETE 4/MORE VIEWS 10/27/2020 12:00:00 AM EDT MEDENT ([facility]) RADIOLOGIC EXAM KNEE COMPLETE 4/MORE VIEWS 10/27/2020 12:00:00 AM EDT MEDENT ([facility]) Mammogram 09/24/2020 12:00:00 AM EST M EDENT ([facility]) Magnetic Resonance Angiogtaphy Head W/O Contrast Material(S) 09/09/2020 12:00:00 AM EST MEDENT ([facility] ) Magnetic Resonance Angiogtaphy Head W/O Contrast Material(S) 09/09/2020 12:00:00 AM EST MED[facility] ([facility] ) Magnetic Resonance Angiography Neck W/O Contrast Materials 09/09/2020 12:00:00 AM EST MEDENT ([facility] ) Magnetic Resonance Angiography Neck W/O Contrast Materials 09/09/2020 12:00:00 AM EST MEDENT ([facility] ) MRI BRAIN BRAIN STEM W/O CONTRAST MATERIAL 09/09/2020 12:00:00 AM EST MEDENT ([facility], ) MRI BRAIN BRAIN STEM W/O CONTRAST MATERIAL 09/09/2020 12:00:00 AM EST MEDENT ([facility], ) OFFICE OUTPATIENT VISIT 15 MINUTES 09/05/2020 12:00:00 AM EST MEDENT ([facility]) ARTHROCENTESIS ASPIR&/INJECTION MAJOR JT/BURSA 12:00:00 AM EST MEDENT ([facility] ) Results ID Date Data Source [id number] 06/01/2021 02:09:00 PM EDT [facility] Name Value Range Interpretation Code Description Data Giovanna rce(s) Supporting Document(s) SARS-CoV-2 RNA Resp Ql HPOEBE+probe Negative [facility] This lab was ordered by [facility] and reported by [email or web address]. ID Date Data Source [id number] 06/01/2021 11:50:00 AM EDT MEDENT ([facility]) Name Value Range Interpretation Code Description Data Giovanna rce(s) Supporting Document(s) Bacteria identified in Urine by Culture Laboratory test result [facility] FULL REPORT IN LAB NOTES (eCW and Medent ). NO GROWTH CLINICAL SIGNIFICANCE 1 ORGANISM ID Date Data Source [id number] 06/01/2021 11:50:00 AM EDT MED[facility] ([facility] Name Value Range Interpretation Code Description Data Giovanna rce(s) Supporting Document(s) Appearance, Urine Laboratory test result [facility]) PH,Urine 5.0 units 5.0-9.0 [facility]) Color, Urine Laboratory test result MEDE NT ([facility]) Specific Reeds Urine Auto 1.020 1.002-1.035 MED[facility] ([facility]) Protein, Urine Auto Laboratory test result MEDENT ([facility]) Glucose, Urine (Ua) Auto Laboratory test result MEDENT ([facility]) Ketone, Urine Auto Laboratory test result [facility] Urobilinogen, Urine Auto 0.2 mg/dL 0.0-2.0 MEDEN T ([facility]) Bilirubin, Urine Auto Laboratory test result [facility]) Nitrite, Urine Auto Laboratory test result [facility]) Leukocyte Esterase, Urine Auto Laboratory test result MEDENT ([facility]) Blood, Urine Blood Laboratory test result [facility]) WBC, Urine Auto 2 /HPF 0-3 MED[facility] ([facility]) RBC, Urine Auto 0 /HPF 0-3 MED[facility] ([facility]) Squamous Epithelial Cell Ur AU 3 /HPF 0-6 MED[facility] ([facility]) Bacteria, Urine Auto Laboratory test result MEDENT ([facility]) Hyaline Cast, Urine Auto 0 /LPF 0-1 MEDEN T ([facility]) Transitional Epithelial Auto 1 /HPF M EDENT ([facility]) Amorphous Sediment Laboratory test result [facility]) ID Date Data Source [id number] 06/01/2021 11:49:00 AM EDT MED[facility] ([facility]) Name Value Range Interpretation Code Description Data Giovanna rce(s) Supporting Document(s) Glucose [Mass/volume] in Serum or Plasma 89 mg/dL 74-99 MEDENT ([facility]) 100-125 mg/dL PRE-DIABETES/FASTING >126 mg/dL DIABETES/FASTING Creatinine 1.0 mg/dL 0.6-1.3 MEDENT ([facility]) Urea nitrogen [Mass/volume] in Serum or Plasma 11 mg/dL 7-18 [facility] Chloride [Moles/volume] in Serum or Plasma 101 meq/L 98-107 MED[facility] ([facility]) Potassium [Moles/volume] in Serum or Plasma 4.1 meq/L 3.5-5.1 MED[facility] ([facility]) Sodium [Moles/volume] in Serum or Plasma 138 meq/L 136-145 MED[facility] ([facility]) Calcium [Mass/volume] in Serum or Plasma 9.6 mg/dL 8.5-10.1 [facility] Glomerular filtration rate/1.73 sq M pre dicted among non-blacks [Volume Rate/Area] in Serum or Plasma by Creatinine-based formula (MDRD) 54 mL/min [facility] ([facility] Carbon dioxide, total [Moles/volume] in Serum or Plasma 32 meq/L 21 -32 [facility] Glomerular filtration rate/1.73 sq M pre dicted among blacks [Volume Rate/Area] in Serum or Plasma by Creatinine-based formula (MDRD) Laboratory test result MEDENT ([facility]) <content>CHRONIC KIDNEY DISEASE STAGING PER NKF</content>
<content></content>
<content>STAGE I & II GFR >= 60 NORMAL TO MILDLY DECREASED</content>
<content>STAGE III GFR 30-59 MODERATELY DECREASED</content>
<content>STAGE IV GFR 15-29 SEVERELY DECREASED</content>
<content>STAGE V GFR <15 VERY LITTLE GFR LEFT</content>
<content>ESRD GFR <15 ON TANK ERECTOR</content>
<content></content> ID Date Data Source [id number] 06/01/2021 11:49:00 AM EDT MEDENT ([facility]) Name Value Range Interpretation Code Description Data Giovanna rce(s) Supporting Document(s) Leukocytes [#/volume] in Blood by Automated count 4.0 x10*3/UL 4.1-10 .9 [facility] Erythrocytes [#/volume] in Blood by Automated count 5.05 x10*6/UL 4.2 0-6.30 [facility] ([facility] Hemoglobin [Mass/volume] in Blood 15.2 g/dL 12.0-18.0 MED[facility] ([facility]) MCV 90.3 fL 80.0-97.0 MED[facility] ([facility]) MCH 30.2 pg 26.0-32.0 MED[facility] ([facility]) Hematocrit [Volume Fraction] of Blood by Automated count 45.7 % 3 7.0-51.0 [facility]) MCHC 33.4 g/dL 31.0-38.0 MED[facility] ([facility]) Erythrocyte distribution width [Ratio] by Automated count 13.4 % 11.6-13.7 MED[facility] ([facility]) Lymph % 19.1 % 10.0-58.5 MED[facility] ([facility]) Platelets [#/volume] in Blood by Automated count 206 x10*3/UL 140-440 [facility] MPV 8.8 FL 7.8-11.0 [facility]) Mid % 4.9 % 1.7-9.3 MED[facility] ([facility]) Neut % 76.0 % 37.0-92.0 [facility]) Lymph # 0.7 x10*3/UL 0.6-4.1 MED[facility] ([facility]) Mid # 0.2 x10*3/UL 0.1-0.6 MED[facility] ([facility]) Neut # 3.1 x10*3/UL 2.0-7.8 MED[facility] ([facility]) ID Date Data Source [id number] 05/19/2021 10:26:26 AM EDT [facility] PC[facility]: November ArnaldoDOB: 1945Provider: Aris [...] rce(s) Supporting Document(s) ID Date Data Source [id number] 05/05/2021 10:57:16 AM EDT [facility] PC[facility]: Tawnya McintoshDOB: 1945Provider: Aris [...] Pre-op exam; Ordered By:Marc Pozo;Fax Results To (Order Packer) : Rosalinda Gramajo Tobacco Use Screeni ng; [...] rce(s) Supporting Document(s) ID Date Data Source [id number] 03/22/2021 09:07:00 AM EDT [facility] Name Value Range Interpretation Code Description Data Giovanna rce(s) Supporting Document(s) SARS coronavirus 2 RNA Not Detected [facility] This lab was ordered by [facility] and rep orted by [facility]. ID Date Data Source [id number] 03/04/2021 08:53:00 AM EDT MEDENT ([facility]) Name Value Range Interpretation Code Description Data Giovanna rce(s) Supporting Document(s) Thyrotropin [Units/volume] in Serum or Plasma by Detec tion limit <= 0.05 mIU/L 3.59 uIU/mL 0.36-3.74 MED[facility] ([facility] ) ID Date Data Source [id number] 03/04/2021 08:53:00 AM EDT MEDENT ([facility]) Name Value Range Interpretation Code Description Data Giovanna rce(s) Supporting Document(s) Cholesterol [Mass/volume] in Serum or Plasma 168 mg/dL 131-200 MED[facility] ([facility]) Cholesterol in LDL [Mass/volume] in Serum or Plasma by calcu lation 66 CALC 50-159 [facility] ([facility]) Triglyceride [Mass/volume] in Serum or Plasma 63 mg/dL 30-150 [facility] ([facility]) Cholesterol in HDL [Mass/volume] in Serum or Plasma 89 mg/dL 35-60 [facility] ([facility]) ID Date Data Source [id number] 03/04/2021 08:53:00 AM EDT MEDENT ([facility]) Name Value Range Interpretation Code Description Data Giovanna rce(s) Supporting Document(s) Glucose [Mass/volume] in Serum or Plasma 94 mg/dL 74-99 [facility] ([facility]) 100-125 mg/dL PRE-DIABETES/FASTING >126 mg/dL DIABETES/FASTING Sodium [Moles/volume] in Serum or Plasma 141 meq/L 136-145 MED[facility] ([facility]) Urea nitrogen [Mass/volume] in Serum or Plasma 14 mg/dL 7-18 [facility] ([facility]) Creatinine 0.9 mg/dL 0.6-1.3 MED[facility] ([facility]) Potassium [Moles/volume] in Serum or Plasma 4.0 meq/L 3.5-5.1 MED[facility] ([facility]) Chloride [Moles/volume] in Serum or Plasma 105 meq/L 98-107 [facility] ([facility]) Carbon dioxide, total [Moles/volume] in Serum or Plasma 30 meq/L 21 -32 [facility] ([facility]) Alkaline phosphatase isoenzyme [Units/volume] in Serum or Pl asma 69 mg/dL 46-116 [facility] ([facility]) Calcium [Mass/volume] in Serum or Plasma 9.2 mg/dL 8.5-10.1 [facility] ([facility]) Aspartate aminotransferase [Enzymatic activity/volume] in Serum or Plasma 22 U/L 15-37 MED[facility] ([facility] ) Total Bilirubin 0.6 mg/dL 0.2-1.0 MED[facility] ([facility]) Albumin [Mass/volume] in Serum or Plasma 3.7 g/dL 3.4-5.0 [facility] ([facility]) Proteinase 3 Ab [Units/volume] in Serum 6.3 g/dL 6.4-8.2 [facility] ([facility]) Alanine aminotransferase [Enzymatic activity/volume] in Seru m or Plasma 24 U/L 12-78 [facility] ([facility]) A/G Ratio 1.42 CALC 1.00-1.90 [facility]) Glomerular filtration rate/1.73 sq M pre dicted among non-blacks [Volume Rate/Area] in Serum or Plasma by Creatinine-based formula (MDRD) Laboratory test result MED[facility] ([facility] ) Glomerular filtration rate/1.73 sq M pre dicted among blacks [Volume Rate/Area] in Serum or Plasma by Creatinine-based formula (MDRD) Laboratory test result MEDENT ([facility]) <content>CHRONIC KIDNEY DISEASE STAGING PER NKF</content>
<content></content>
<content>STAGE I & II GFR >= 60 NORMAL TO MILDLY DECREASED</content>
<content>STAGE III GFR 30-59 MODERATELY DECREASED</content>
<content>STAGE IV GFR 15-29 SEVERELY DECREASED</content>
<content>STAGE V GFR <15 VERY LITTLE GFR LEFT</content>
<content>ESRD GFR <15 ON TANK ERECTOR</content>
<content></content> ID Date Data Source [id number] 03/04/2021 08:53:00 AM EDT MEDENT ([facility]) Name Value Range Interpretation Code Description Data Giovanna rce(s) Supporting Document(s) Leukocytes [#/volume] in Blood by Automated count 3.8 x10*3/UL 4.1-10 .9 [facility] ([facility]) Hemoglobin [Mass/volume] in Blood 14.3 g/dL 12.0-18.0 [facility] Erythrocytes [#/volume] in Blood by Automated count 4.81 x10*6/UL 4.2 0-6.30 [facility] MCV 88.7 fL 80.0-97.0 [facility] ([facility]) Hematocrit [Volume Fraction] of Blood by Automated count 42.7 % 3 7.0-51.0 [facility] ([facility]) MCH 29.8 pg 26.0-32.0 [facility]) MCHC 33.6 g/dL 31.0-38.0 [facility] ([facility]) Erythrocyte distribution width [Ratio] by Automated count 12.7 % 11.6-13.7 [facility] ([facility]) MPV 9.1 FL 7.8-11.0 [facility] ([facility]) Platelets [#/volume] in Blood by Automated count 154 x10*3/UL 140-440 [facility] ([facility]) Lymph % 21.2 % 10.0-58.5 [facility] ([facility]) Mid % 5.5 % 1.7-9.3 [facility]) Lymph # 0.8 x10*3/UL 0.6-4.1 [facility] ([facility]) Neut % 73.3 % 37.0-92.0 [facility]) Mid # 0.2 x10*3/UL 0.1-0.6 [facility] ([facility]) Neut # 2.8 x10*3/UL 2.0-7.8 [facility] ([facility]) ID Date Data Source [id number] 09/24/2020 12:00:00 AM EST [facility] Dinah Nunez DO Patient Name: ARNALDO,[id number] [facility] Date of : 1945[place] [address] Date [facility]: [facility]2020[facility] [place] [address]#: Fax: [phone] EXAM: MAMMO SCREENING WITH CADCLINICAL [...] mammogram was read with the assistance of [employer], an FDAapproved computer aided detection system for [...] Name Value Range Interpretation Code Description [facility] Supporting Document(s) ID Date Data Source [id number] 08/13/2020 12:46:00 PM EST MED[facility] ([facility]) Name Value Range Interpretation Code Description Data [facility] Supporting Document(s) Influenza A Amplification Laboratory test result MED[facility] ([facility]) Negative results do not preclude influen za or RSV virus infection and should not be used as the sole basis for treatment or other patient management decisions. Influenza B Amplification Laboratory test result [facility] ([facility]) Negative results do not preclude influen za or RSV virus infection and should not be used as the sole basis for treatment or other patient management decisions. RSV Amplification Laboratory test result [facility] ([facility]) Negative results do not preclude influen za or RSV virus infection and should not be used as the sole basis for treatment or other patient management decisions. Laboratory test finding (navigational concept) Laboratory test result MED[facility] ([facility]) A false negative result may occur [...] pathogens. DISCLAIMER: Testing was performed using the [employer] SARS-CoV-2 test. This test was developed and its performance characteristics determined by [employer]. This test has not been FDA cleared [...] or revoked sooner. ID Date Data Source [id number] 08/13/2020 12:46:00 PM EST [facility] Name Value Range Interpretation Code Description Data Giovanna rce(s) Supporting Document(s) SARS coronavirus 2 RNA [Presence] in Res piratory specimen by PHOEBE with [facility] This [facility] was ordered by [facility] a nd reported by [facility]. ID Date Data Source [id number] 08/13/2020 02:59:00 AM EST [facility] ([facility] Name Value Range Interpretation Code Description Data Giovanna rce(s) Supporting Document(s) Magnesium [Moles/volume] in Serum or Plasma 2.0 mg/dL 1.8-2.4 [facility] ([facility]) Thyrotropin [Units/volume] in Serum or Plasma by Detec tion limit <= 0.05 mIU/L 4.680 uIU/ML 0.358-3.740 [facility] ([facility] ) ID Date Data Source [id number] 08/13/2020 02:59:00 AM EST [facility] ([facility]) Name Value Range Interpretation Code Description Data Giovanna e(s) Supporting Document(s) Glucose, Fasting 105 mg/dL 70-100 [facility] ([facility]) Creatinine For GFR 0.86 mg/dL 0.55-1.30 MED[facility] ([facility]) Blood Urea Nitrogen 15 mg/dL 7-18 [facility] ([facility]) Glomerular Filtration Rate Laboratory test result [facility] ([facility]) <content>Units are mL/min/1.73 m2</content>
<content></content>
<content>Chronic Kidney Disease Staging per NKF:</content>
<content></content>
<content>Stage I & II GFR >=60 Normal to Mildly Decreased</content>
<content>Stage III GFR 30- 59 Moderately Decreased</content>
<content>Stage IV GFR 15-29 Severely Decreased</content>
<content>Stage V GFR <15 Very Little GFR Left</content>
<content>ESRD GFR <15 on TANK ERECTOR</content>
<content></content> Potassium Serum 3.5 meq/L 3.5-5.1 MED[facility] ([facility]) Sodium Level 141 meq/L 136-145 [facility] ([facility]) Carbon Dioxide Level 26 meq/L 21-32 [facility] ([facility]) Anion Gap 6 meq/L 8-16 [facility]) Chloride Level 109 meq/L 98-107 MED[facility] ([facility]) Calcium Level 8.7 mg/dL 8.8-10.2 [facility] ([facility]) Ast/Sgot 20 U/L 7-37 [facility]) Alt/SGPT 21 U/L 12-78 [facility] ([facility]) Bilirubin,Total 0.5 mg/dL 0.2-1.0 [facility] ([facility]) Alkaline Phosphatase 68 U/L 45-117 MED[facility] ([facility]) Total Protein 6.4 GM/DL 6.4-8.2 MED[facility] ([facility]) Albumin/Globulin Ratio 1.3 1.2-2.2 [facility] ([facility]) Albumin 3.6 GM/DL 3.2-5.2 [facility]) ID Date Data Source [id number] 08/13/2020 02:59:00 AM EST [facility] ([facility]) Name Value Range Interpretation Code Description Data Giovanna rce(s) Supporting Document(s) White Blood Count 5.3 10 4.0-10.0 MED[facility] ([facility]) Hemoglobin 13.5 g/dL 12.0-15.5 [facility] ([facility] Red Blood Count 4.55 10 4.00-5.40 MED[facility] ([facility]) Mean Corpuscular Volume 94.1 fl 80.0-96.0 [facility] ([facility]) Hematocrit 42.8 % 36.0-47.0 [facility] Mean Corpuscular Hemoglobin 29.7 pg 27.0-33.0 ME DENT ([facility]) Mean Corpuscular HGB Conc 31.5 g/dL 32.0-36.5 MEDE NT ([facility]) Red Cell Distribution Width 13.2 % 11.5-14.5 MA DENT ([facility]) Nucleated Red Blood Cell % 0.0 % 0-0 MED ENT ([facility]) Platelet Count, Automated 173 10 150-450 MEDE NT ([facility]) Procedure Social History Code Duration Value Status Description Data Source(s ) Smoking 04/10/2021 10:52:19 PM EDT Never smoked tobacco (findi ng) completed Never smoked tobacco (finding) [facility]SON (Adis Ingram MD [facility]) Smoking 03/19/2021 09:17:43 AM EDT Never smoked tobacco (findi ng) completed Never smoked tobacco (finding) [facility] (Adis Ingram MD [facility]) Vital Signs ID Date Data Source [id number] Name Value Range Interpretation Code Description Data Source(s) Diastolic blood pressure 70 mm[Hg] 70 mm[Hg] [facility] ([facility]) Heart rate 79 /min 79 /min [facility] ([facility]) Body height 64 [in_i] 64 [in_i] [facility] ([facility]) 5'4" Body weight 196.00 [lb_av] 196.00 [lb_av] MEDEN T ([facility]) Body mass index (BMI) [Ratio] 33.6 kg/m2 33.6 k g/m2 MED[facility] ([facility]) Systolic blood pressure 126 mm[Hg] 126 mm[Hg] [facility] Heart rate 72 /min 72 /min MED[facility] ([facility]) Body height 64 [in_i] 64 [in_i] MEDENT ([facility]) 5'4" Body weight 201.12 [lb_av] 201.12 [lb_av] MEDEN T ([facility]) Oxygen saturation in Arterial blood by Pulse oximetry 96 % 96 % [facility] Body mass index (BMI) [Ratio] 34.5 kg/m2 34.5 k g/m2 MEDENT ([facility]) Systolic blood pressure 128 mm[Hg] 128 mm[Hg] [facility] Diastolic blood pressure 64 mm[Hg] 64 mm[Hg] [facility] Body temperature 97.3 [degF] 97.3 [degF] MEDENT ([facility] ) Body weight 201.38 [lb_av] 201.38 [lb_av] MEDEN T ([facility] ) Body mass index (BMI) [Ratio] 36.0 kg/m2 36.0 k g/m2 MEDENT ([facility] ) Body height 62.75 [in_i] 62.75 [in_i] MEDENT ([facility]) 5'2.75" Body weight 195.00 [lb_av] 195.00 [lb_av] MEDEN T ([facility], ) Body height 63 [in_i] 63 [in_i] MEDENT ([facility], ) 5'3" Respiratory rate 12 /min 12 /min MEDENT ( [facility]) Body mass index (BMI) [Ratio] 34.5 kg/m2 34.5 k g/m2 MEDENT ([facility]) [place] body weight 115 [lb_av] 115 [lb_av] MEDEN T ([facility]) Body height 64 [in_i] 64 [in_i] MEDENT ([facility]) 5'4" Systolic blood pressure 128 mm[Hg] 128 mm[Hg] M EDENT ([facility]) Diastolic blood pressure 70 mm[Hg] 70 mm[Hg] MEDENT ([facility]) Heart rate 84 /min 84 /min MEDENT ([facility]) Body weight 201.00 [lb_av] 201.00 [lb_av] MEDEN T ([facility]) Body mass index (BMI) [Ratio] 34.5 kg/m2 34.5 k g/m2 MEDENT ([facility]) [place] body weight 115 [lb_av] 115 [lb_av] MEDEN T ([facility]) Body weight 195.00 [lb_av] 195.00 [lb_av] MEDEN T ([facility]) Body mass index (BMI) [Ratio] 34.5 kg/m2 34.5 k g/m2 MEDENT ([facility]) Respiratory rate 12 /min 12 /min MEDENT ( [facility]) Body height 63 [in_i] 63 [in_i] MEDENT ([facility]) 5'3" Systolic blood pressure 148 mm[Hg] 148 mm[Hg] EDENT ([facility]) Diastolic blood pressure 88 mm[Hg] 88 mm[Hg] MEDENT ([facility]) Heart rate 68 /min 68 /min MEDENT ([facility]) Systolic blood pressure 140 mm[Hg] 140 mm[Hg] M EDENT ([facility]) RT Arm Diastolic blood pressure 90 mm[Hg] 90 mm[Hg] MEDENT ([facility]) RT Arm Body height 64 [in_i] 64 [in_i] MEDENT ([facility]) 5'4" Body weight 199.50 [lb_av] 199.50 [lb_av] MEDEN T ([facility]) Body mass index (BMI) [Ratio] 34.2 kg/m2 34.2 k g/m2 [facility]DELGADO ([facility]) Body weight 196.00 [lb_av] 196.00 [lb_av] MARYJOEN T ([facility]) Oxygen saturation in Arterial blood by Pulse oximetry 97 % 97 % GABY ([facility]) Air Body mass index (BMI) [Ratio] 33.6 kg/m2 33.6 k g/m2 GABY ([facility]) Systolic blood pressure 114 mm[Hg] 114 mm[Hg] [facility] Diastolic blood pressure 72 mm[Hg] 72 mm[Hg] GABY ([facility]) Heart rate 88 /min 88 /min [facility] Body height 64 [in_i] 64 [in_i] [facility] 5'4"
[2021-06-15 21:40] VITALS: BP 109/55
[2021-06-15 22:01] VITALS: BP 114/59
[2021-06-15 22:02] LABS: RSV AMPLIFICATION NEGATIVE (NEGATIVE)
[2021-06-15 22:45] VITALS: BP 110/59
--- OUTSIDE RECORDS SUMMARY | 2021-06-15 23:56 | CCD ---
Author Author [facility] Organization [facility] Address Unknown Phone Unavailable Care Team Providers Care Customer Loyalty Representative Name Role Phone Fish, B Victor M VASQUEZ Unavailable Unavailable Fish, B Victor M VASQUEZ Unavailable Unavailable Fish, B Victor M VASQUEZ Unavailable Unavailable Fish, B Victor M VASQUEZ Unavailable Unavailable Fish, B Victor M VASQUEZ Unavailable Unavailable Fish, B Victor M VASQUEZ Unavailable Unavailable Fish, B Victor M VASQUEZ Unavailable Unavailable Fish, B Victor M VASQUEZ Unavailable Unavailable Fish, B Vicotr M VASQUEZ Unavailable Unavailable Fish, B Victor [...] B Victor M VASQUEZ Unavailable Unavailable Fish, [facility], PA-C Unavailable Unavailabl e Fish, [facility], PA-C Unavailable Unavailabl e Fish, [facility], PA-C Unavailable Unavailabl e Fish, [facility], PA-C Unavailable Unavailabl e Fish, [facility], PA-C Unavailable Unavailabl e Fish, [facility], PA-C Unavailable Unavailabl e Fish, [facility], PA-C Unavailable Unavailabl e Fish, [facility], PA-C Unavailable Unavailabl e Fish, [facility], PA-C Unavailable Unavailabl e Fish, [facility], PA-C Unavailable Unavailabl e Fish, [facility], PA-C Unavailable Unavailabl e Fish, [facility], PA-C Unavailable Unavailabl e Fish, [facility], PA-C Unavailable Unavailabl e Fish, [facility], PA-C Unavailable Unavailabl e Fish, [facility], PA-C Unavailable Unavailabl e Fish, [facility], PA-C Unavailable Unavailabl e Fish, [facility], PA-C Unavailable Unavailabl e Fish, [facility], [facility]-C Unavailable Unavailabl e Fish, [facility], PA-C Unavailable Unavailabl e Fish, [facility], PA-C Unavailable Unavailabl e Fish, [facility], PA-C Unavailable Unavailabl e Fish, [facility], PA-C Unavailable Unavailabl e Fish, [facility], PA-C Unavailable Unavailabl e Fish, [facility], PA-C Unavailable Unavailabl e Fish, [facility], PA-C Unavailable Unavailabl e Fish, [facility], PA-C Unavailable Unavailabl e Fish, [facility], PA-C Unavailable Unavailabl e Fish, [facility], PA-C Unavailable Unavailabl e Fish, [facility], PA-C Unavailable Unavailabl e Fish, [facility], PA-C Unavailable Unavailabl e Fish, [facility], PA-C Unavailable Unavailabl e Fish, [facility], PA-C Unavailable Unavailabl e Fish, [facility], PA-C Unavailable Unavailabl e Fish, [facility], PA-C Unavailable Unavailabl e Fish, [facility], PA-C Unavailable Unavailabl e Fish, [facility], PA-C Unavailable Unavailabl e Enrique, Dinah [...] Unavailable Enrique, Dinah DO Unavailable Unavailable Enrique, Dianh DO Unavailable Unavailable Enrique, Dinah DO Unavailable [...] Marc Unavailable Sánchez VASQUEZ, M Marc Unavailable Sánchze VASQUEZ, M Marc Unavailable Sánchez VASQUEZ, M [...] Unavailable Unavailable Lion Luong MD Unavailable Unavailable iLon Luong MD Unavailable Unavailable Lion Luong MD Unavailable Unavailable Lion Luong MD Unavailable Unavailable Lion Luong MD Unavailable Unavailable Lion Luong MD Unavailable Unavailable Lion Luong MD Unavailable Unavailable Lion Luong MD Unavailable Unavailable Lion Luong MD Unavailable Unavailable Lion Luong MD Unavailable Unavailable Lion Luong MD Unavailable Unavailable Lion uLong MD Unavailable Unavailable Lion Luong MD Unavailable [...] is protected by Article 27-F of the [facility] Public Health law. If you continue you may have access to information: Regarding HIV / AIDS; Provided by facilities licensed or operated by the [facility] Office of Mental Health; or Provided by the [facility] Office for People With Developmental Disabilities. If such information is present, then the following [facility] mandated warning applies: This information has been [...] law may result in a fine or [place] health care facility sentence or both. A general authorization for the release of medical or other information is NOT sufficient authorization for further disc losure. Family History Family Member Name Family Member Gender Family Member Status Date o f Status Description Data Source(s) Unknown Male Problem [facility] ([facility]) Unknown Male Problem [facility] ([facility] ) Unknown Unknown Problem [facility] ([facility] ) Unknown Unknown Problem [facility] ([facility] ) Encounters Encounter Providers Location Date Indications Data Source(s ) Outpatient Attender: Marc Lazoer: Dinah Seymour 05/19/2021 10:26:26 AM EDT [facility] Recurring Patient Referrer: Dinah Nunez DO 05/09/2021 06:2 9:35 AM EDT [facility] Outpatient Attender: Marc Waldrop: Dinah Seymour 05/05/2021 10:57:16 AM EDT [facility] Recurring Patient Referrer: Dinah Nunez DO 05/05/2021 10:0 8:04 AM EDT [facility] Recurring Patient Referrer: Dinah Nunez DO 04/24/2021 08:1 5:18 AM EDT [facility] Recurring Patient Referrer: Dinah Nunez DO 04/23/2021 02:5 5:29 PM EDT [facility] Outpatient Attender: Dinah Man 03/05 02:00:00 PM EDT [facility] ([facility] ) Outpatient<td ID="encounterTypeDescripti [email or web address]">1 Year Follow-Up</td><td>Lynette Kirkpatrick DO</td><td>Adis Rojas MD [facility]</td><td>02/05/2021</td><td>12:47PM</td><td>1:49PM</td><td></td> Attender: LYNETTE Ferguson MD [facility] 02/05/2021 12:47:00 PM EDT - 02/05/2021 01:49:00 PM EDT [facility] (Adis mckeon MD [facility]) Office Visit Attender: Victor M Catalan MD Physical Therapy 2020 09:00:00 AM EDT [facility] ([facility]) Outpatient Attender: Victor M Catalan MD Physical Therapy 01/01/2021 0 1:45:00 PM EDT [facility] ([facility]) Outpatient Attender: Gloria Luong MD [facility] 11/11/2020 02:45:00 PM EDT [facility] ([facility]) Outpatient Attender: Dinah Man 09/05 01:30:00 PM EST [facility] ([facility] ) Outpatient Attender: Gloria Luong MD [facility] 08/29/2020 07:00:00 AM EST [facility] ([facility]) Outpatient Attender: Jenelle Nathan 01:45:00 PM EST [facility] ([facility] ) Outpatient Attender: Dinah Man 08/18 08:00:00 AM EST [facility] ([facility] ) OFFICE OUTPATIENT VISIT 15 MINUTES Attender: María Elena WILSON PA-C Physical Therapy 06/09/2020 09:30:00 AM EST [facility] ([facility]) Immunizations Vaccine Date Status Description Data Source(s) COVID-19 VACCINE Moderna 09/18/2020 12:00:00 AM EST completed [facility] Vaccine Series Complete: YESThis Data wa s Submitted to [facility] Via [employer]. COVID-19 VACCINE Moderna 08/21/2020 12:00:00 AM EST completed [employer] Vaccine Series Complete: NOThis Data was Submitted to [facility] Via [employer]. This CVX code allows reporting of a vacc ination when formulation is unknown (for example, when recording a Influenza vaccination when noted on a vaccination card) 04/17/2020 09:38:00 AM EDT completed GRAYSON T ([facility]) INFLUENZA VACCINE QUADRIVALENT (65 YR UP)/MF59 [...] Euflexxa 01/01/2021 12:00:00 AM EDT active MED[facility] ([facility]) Covid-19 vaccine, Unspecified 09/18/2020 12:00:00 AM EST completed [facility] ([facility]) Medication administered onsite 5 mg 09/05/2020 12:00:00 AM EST tablet 1 TAKE 1 TABLET BY MOUTH 30-60 MINUTES PRIOR TO MRI MAXIMUM DAILY DOSE = 1 TABLET TAKE 1 TABLET BY MOUTH 30-60 MINUTES PRIOR TO MRI MAXIMUM DAILY DOSE = 1 TABLET SOLD: 09/06/2020 [facility] Diazepam 5 MG Oral Tablet Diazepam 09/04/2020 12:00:00 AM EST active MED[facility] ([facility]) Sodium Chloride 0.111 MEQ/ML Nasal Solution Saline Nasal Spr ay 08/27/2020 12:00:00 AM EST active M EDENT ([facility]) Amoxicillin 500 MG Oral Capsule Amoxicillin 08/27/2020 12:00:00 AM EST completed [facility] ([facility]) 500 mg 08/27/2020 12:00:00 AM EST capsule 21 TAKE ONE CAPSULE BY MOUTH THREE TIMES A DAY FOR 7 DAYS TAKE ONE CAPSULE BY MOUTH THREE TIMES A DAY FOR 7 DAYS SOLD: 08/27/2020 [facility] Covid-19 vaccine, Unspecified 08/21/2020 12:00:00 AM EST completed [facility]) Medication administered onsite Meclizine Hydrochloride 25 MG [...] Oral Tablet [facility] ( Adis Ingram MD [facility]) Dicyclomine Hydrochloride 10 MG Oral Cap sienna Dicyclomine HCl 10MG Oral Capsule, conventional Dicyclomine HCl 10MG Oral Capsule, conventional 2017 12:00:00 AM EDT 1 aborted dicyclomine hyd rochloride 10 MG Oral Capsule [facility] (Adis Ingram MD [facility]) Insurance Providers Payer name Policy type / Coverage type Policy ID Covered constitution party ID Covered constitution party's relationship to german Policy German Plan Information Fire Ins () Workers Compensation [id number] 2.16.840.1.261358.3.227.99.991.34776.0 Self [id number] Fire Ins [facility]) Workers Compensation [id number] 2.16.840.1.053786.3.227.99.991.62877.0 Self [id number] Fire Ins () Workers Compensation [id number] 2.16.840.1.707088.3.227.99.991.41744.0 Self [id number] [employer] Ins () Workers Compensation [id number] 2.16.840.1.136728.3.227.99.991.65413.0 Self [id number] [place] [employer] () Workers Compensation [id number] 2.16.840.1.795436.3.227.99.991.26806.0 Self [id number] [place] [employer] () Workers Compensation [id number] 2.16.840.1.168272.3.227.99.991.28087.0 Self [id number] [place] [employer] () Workers Compensation [id number] 2.16.840.1.545585.3.227.99.991.14171.0 Self [id number] [place] [employer] () Workers Compensation [id number] 2.16.840.1.522299.3.227.99.991.53803.0 Self [id number] [place] [employer] () Workers Compensation [id number] 2.16.840.1.352762.3.227.99.991.67152.0 Self [id number] [place] [employer] () Workers Compensation [id number] 2.16.840.1.747430.3.227.99.991.03104.0 Self [id number] [place] [employer] () Workers Compensation [id number] 2.16.840.1.816655.3.227.99.991.67247.0 Self [id number] [place] [employer] () Workers Compensation [id number] 2.16.840.1.865241.3.227.99.991.08046.0 Self [id number] [place] [employer] () Workers Compensation [id number] 2.16.840.1.966085.3.227.99.991.48690.0 Self [id number] [place] [employer] () Workers Compensation [id number] 2.16.840.1.427333.3.227.99.991.10759.0 Self [id number] [place] [employer] () Workers Compensation [id number] 2.16.840.1.217234.3.227.99.991.41946.0 Self [id number] [place] [employer] () Workers Compensation [id number] 2.16.840.1.698226.3.227.99.991.91649.0 Self [id number] [place] [employer] () Workers Compensation [id number] MRN.[id number] Self [id number] [place] [employer] () Workers Compensation [id number] 2.16.840.1.730811.3.227.99.991.04070.0 Self [id number] [place] [employer] ([place]) Workers Compensation [id number] 2.16.840.1.021208.3.227.99.991.24505.0 Self [id number] [place] [employer] ([place]) Workers Compensation [id number] 2.16.840.1.124960.3.227.99.991.54100.0 Self [id number] [place] [employer] () Workers Compensation [id number] 2.16.840.1.046025.3.227.99.991.03232.0 Self [id number] [place] [employer] () Workers Compensation [id number] MRN.[id number] Self [id number] [place] [employer] () Workers Compensation [id number] 2.16.840.1.853967.3.227.99.991.81147.0 Self [id number] [place] [employer] () Workers Compensation [id number] 2.16.840.1.520234.3.227.99.991.94568.0 Self [id number] [place] [employer] [place]) Workers Compensation [id number] 2.16.840.1.446613.3.227.99.991.93063.0 Self [id number] [employer] [id number] 2.16.840.1.017678.3.227 .99.4595.24698.0 Family Dependent [id number] DO Not Use (Now #114) Commercial [id number] 2.16.840.1.986688.3.227.99.4595.53449.0 Family Dependent [id number] [employer] Commercial [id number] 2.16.840.1.931136.3.227 .99.4595.06148.0 Family Dependent [id number] [employer] Commercial [id number] 2.16.840.1.415977.3.227 .99.4595.85057.0 Family Dependent [id number] [employer] Commercial [id number] 2.16840.1.340346.3.227 .99.4595.84318.0 Family Dependent [id number] [employer] Commercial [id number] 2.16.840.1.865070.3.227 .99.4595.11651.0 Family Dependent [id number] DO Not Use (Now #114) Commercial [id number] 2.16.840.1.684088.3.227.99.4595.80668.0 Family Dependent [id number] [employer] [id number] 2.16.840.1.309467.3.227 .99.4595.82224.0 Family Dependent [id number] DO Not Use (Now #114) Commercial [id number] 2.16.840.1.909649.3.227.99.4595.86083.0 Family Dependent [id number] DO Not Use (Now #114) Commercial [id number] 2.16.840.1.906660.3.227.99.4595.99634.0 Family Dependent [id number] [employer] [id number] 2.16.840.1.931298.3.227 .99.4595.32902.0 Family Dependent [id number] DO Not Use (Now #114) Commercial [id number] 2.840.1.212168.3.227.99.4595.73310.0 Family Dependent [id number] [employer] Commercial [id number] Family Dependent DO Not Use (Now #114) Commercial [id number] 2.840.1.078847.3.227.99.4595.55820.0 Family Dependent [id number] Asi (pr) Medigap Part B [id number].[id number] Family Dependent [id number] Medicare Natl Govt Servic Medicare Primary [id number] Self WPS For Life Medigap Part B [id number] 2.0.1.527213.3.227.99.4595.51542.0 Family Dependent [id number] Medicare Natl Govt Servic Medicare Primary [id number] 2.0.1.467254.3.227.99.4595.27059.0 Self [id number] WPS For Life Medigap Part B [id number] 2.0.1.062799.3.227.99.4595.44222.0 Family Dependent [id number] Medicare Natl Govt Servic Medicare Primary [id number] 2.0.1.367552.3.227.99.4595.99445.0 Self [id number] Medicare Natl Govt Servic Medicare Primary [id number] 2.0.1.867318.3.227.99.4595.97113.0 Self [id number] WPS For Life Medigap Part B [id number] 2.0.1.314954.3.227.99.4595.22994.0 Family Dependent [id number] WPS For Life Medigap Part B [id number] 2.0.1.477743.3.227.99.4595.37435.0 Family Dependent [id number] Medicare Natl Govt Servic Medicare Primary [id number] 2.16840.1.069244.3.227.99.4595.38991.0 Self [id number] Medicare Natl Govt Servic Medicare Primary [id number] 2.840.1.771421.3.227.99.4595.42565.0 Self [id number] Medicare Natl Govt Servic Medicare Primary [id number] 2.840.1.732240.3.227.99.4595.57253.0 Self [id number] WPS For Life Medigap Part B [id number] 2.0.1.217635.3.227.99.4595.81785.0 Family Dependent [id number] WPS For Life Medigap Part B [id number] 2.840.1.347645.3.227.99.4595.97520.0 Family Dependent [id number] Medicare Natl Govt Servic Medicare Primary [id number] 2.840.1.222695.3.227.99.4595.91188.0 Self [id number] FOR LIFE [id number] SP [id number] WPS For Life Medigap Part B [id number] 2.840.1.932959.3.227.99.4595.72386.0 Family Dependent [id number] Medicare Natl Govt Servic Medicare Primary [id number] 2.0.1.436740.3.227.99.4595.56175.0 Self [id number] WPS For Life Medigap Part B [id number] 2.0.1.552962.3.227.99.4595.70208.0 Family Dependent [id number] WPS For Life Medigap Part B [id number] 2.840.1.897304.3.227.99.4595.21295.0 Family Dependent [id number] WPS For Life Medigap Part B [id number] 2.0.1.696983.3.227.99.4595.27274.0 Family Dependent [id number] [facility]l [facility] Primary [id number] 2.0.1.536079.3.227.99.4595.53572.0 Self [id number] Medicare Natl [facility] Primary [id number] 2.0.1.359888.3.227.99.4595.03635.0 Self [id number] FOR LIFE [id number] [facility] [id number] Medicare Natl Govt Serv Medicare Primary [id number] 20.1.051974.3.227.99.4595.11181.0 Self [id number] WPS For Life Medigap Part B [id number] 2.0.1.964200.3.227.99.4595.66583.0 Family Dependent [id number] WPS For Life Medigap Part B [id number] .1.471479.3.227.99.4595.15960.0 Family Dependent [id number] Medicare Natl [facility] Primary [id number] 09.23.830.1.876160.3.227.99.4595.73221.0 Self [id number] MEDICARE [id number] SP [id number] A Medicare Natl [facility] Medicare Primary [id number] 09.23.830.1.413467.3.227.99.4595.39050.0 Self [id number] MEDICARE [id number] SP [id number] A MEDICARE [id number] SP [id number] WPS For Life Medigap Part B [id number] Family Depende nt WPS For Life Medigap Part B [id number] 20.1.190045.3.227.99.4595.43964.0 Family Dependent [id number] [facility] Service Commercial [id number] 09.23.830.1.852490.3.227.99.991.40017.0 Family Dependent 0 [id number] [employer] [id number] 2.16.840.1.713665.3.227.99.991.11927.0 Family Dependent 0 [id number] [place] Medicare Primary [id number] 2.16.840.1.233478.3.227.99.991.45334.0 Self 1 [id number] [employer] [id number] 2.16.840.1.476677.3.227.99.991.19851.0 Family Dependent 0 [id number] Medicare [place] Medicare Primary [id number] 2.16.840.1.812759.3.227.99.991.76537.0 Self 1 [id number] [employer] [id number] 2.16.840.1.705496.3.227.99.991.18187.0 Family Dependent 0 [id number] Medicare [place] Medicare Primary [id number] 2.16.840.1.561636.3.227.99.991.42896.0 Self 1 [id number] [employer] [id number] 2.16.840.1.206855.3.227.99.991.35338.0 Family Dependent 0 [id number] Medicare [place] Medicare Primary [id number] 2.16.840.1.969667.3.227.99.991.49211.0 Self 1 [id number] [employer] [id number] 2.16.840.1.865007.3.227.99.991.43075.0 Family Dependent 0 [id number] Medicare [place] Medicare Primary [id number] 2.16.840.1.775966.3.227.99.991.43340.0 Self 1 [id number] Medicare [place] Medicare Primary [id number] 2.16.840.1.790681.3.227.99.991.27193.0 Self 6 [id number] [employer] [id number] 2.16.840.1.003253.3.227.99.991.03736.0 Family Dependent 0 [id number] Medicare [place] Medicare Primary [id number] 2.16.840.1.262016.3.227.99.991.87630.0 Self 6 [id number] [employer] [id number] 2.16.840.1.468336.3.227.99.991.92163.0 Family Dependent 0 [id number] Medicare [place] Medicare Primary [id number] 2.16.840.1.081439.3.227.99.991.19433.0 Self 6 [id number] [employer] [id number] 2.16.840.1.877009.3.227.99.991.32837.0 Family Dependent 0 [id number] Medicare [place] Medicare Primary [id number] 2.16.840.1.866289.3.227.99.991.58757.0 Self 6 [id number] [employer] [id number] 2.16.840.1.792632.3.227.99.991.01084.0 Family Dependent 0 [id number] Medicare [place] Medicare Primary [id number] 2.16.840.1.005492.3.227.99.991.98245.0 Self 6 [id number] [employer] [id number] 2.16.840.1.307015.3.227.99.991.51701.0 Family Dependent 0 [id number] Medicare [place] Medicare Primary [id number] 2.16.840.1.278610.3.227.99.991.46339.0 Self 6 [id number] [employer] [id number] 2.16.840.1.918007.3.227.99.991.10840.0 Family Dependent 0 [id number] Medicare [place] Medicare Primary [id number] 2.16.840.1.458901.3.227.99.991.32032.0 Self 6 [id number] Medicare [place] Medicare Primary [id number] 2.16.840.1.933862.3.227.99.991.51153.0 Self 1 [id number] [employer] [id number] 2.16.840.1.309822.3.227.99.991.51818.0 Family Dependent 0 [id number] Medicare [place] Medicare Primary [id number] 2.16.840.1.355411.3.227.99.991.51844.0 Self 1 [id number] [employer] [id number] 2.16.840.1.822730.3.227.99.991.97254.0 Family Dependent 0 [id number] [employer] [id number].[id number] Family Dependent [id number] Medicare [place] Medicare Primary [id number] 2.16840.1.389456.3.227.99.991.80229.0 Self 1 [id number] [employer] [id number] 2.840.1.061983.3.227.99.991.01989.0 Family Dependent 0 [id number] Medicare [place] Medicare Primary [id number] 2.16.840.1.064790.3.227.99.991.19369.0 Self 1 [id number] [employer] [id number] 2.16840.1.413164.3.227.99.991.11046.0 Family Dependent 0 [id number] Medicare [place] Medicare Primary [id number].[id number] Self [id number] Medicare [place] Medicare Primary [id number] 2.16840.1.028050.3.227.99.991.18115.0 Self 1 [id number] [employer] [id number] 2.16840.1.515005.3.227.99.991.27652.0 Family Dependent 0 [id number] [employer] [id number] 2.16.840.1.356968.3.227.99.991.42428.0 Family Dependent 0 [id number] Medicare [place] Medicare Primary [id number] 2.16.840.1.787941.3.227.99.991.01131.0 Self 1 [id number] [employer] [id number] 2.16.840.1.885747.3.227.99.991.92080.0 Family Dependent 0 [id number] Medicare [place] Medicare Primary [id number] 2.16.840.1.127875.3.227.99.991.32293.0 Self 1 [id number] [employer] [id number] 2.16.840.1.898498.3.227.99.991.31631.0 Family Dependent 0 [id number] [employer] [id number] Family Dependent [id number] Medicare [place] Medicare Primary [id number] 2.16.840.1.658061.3.227.99.991.26053.0 Self 1 [id number] [employer] [id number] 2.16.840.1.003219.3.227.99.991.11336.0 Family Dependent 0 [id number] [place] [id number] 2.16.840.1.548939.3.227.99.991.76315.0 Self 1 [id number] [employer] [id number] 2.16.840.1.639423.3.227.99.991.09291.0 Family Dependent 0 [id number] [place] [id number] 2.16.840.1.508191.3.227.99.991.13692.0 Self 1 [id number] [employer] [id number] 2.16.840.1.803642.3.227.99.991.41120.0 Family Dependent 0 [id number] [place] [id number].[id number] Self [id number] [place] Primary [id number] 2.16.840.1.540286.3.227.99.991.29694.0 Self 1 [id number] [facility] Commercial [id number] 2.16.840.1.577907.3.227.99.991.64023.0 Family Dependent 0 [id number] [place] Primary [id number] 2.16.840.1.540936.3.227.99.991.17767.0 Self 1 [id number] [place] [employer] (TFL) Medigap Part B [id number] 2.16.840.1.026957.3.227.99.991.33006.0 Family Dependent 0 [id number] [place] [employer] (TFL[place] Medigap Part B [id number].[id number] Family Dependent [id number] [place] [employer] (TFL[place] Medigap Part B [id number] Family Dependent [id number] [place] [employer] (TFL) Medigap Part B [id number] 2.16.840.1.959144.3.227.99.991.55086.0 Family Dependent 0 [id number] [place] [employer] (TFL[place] Medigap Part B [id number] 2.16.840.1.306280.3.227.99.991.11546.0 Family Dependent 0 [id number] [place] [employer] (TFL) Medigap Part B [id number] 2.16.840.1.273994.3.227.99.991.45747.0 Family Dependent 0 [id number] [place] [employer] (TFL[place] Medigap Part B [id number] 2.16.840.1.296920.3.227.99.991.31208.0 Family Dependent 0 [id number] [place] [employer] [employer] (TFL) [facility] Part B [id number] Family Dependent 0 [id number] [place] [facility] ([place]FL) [facility] Part B [id number] Family Dependent 0 [id number] [place] [facility] [place]) [facility] Part B [id number] Family Dependent 0 [id number] [place] [facility] ([place]) [facility] Part B [id number] Family Dependent 0 [id number] [place] [facility] ([place]) [facility] Part B [id number] Family Dependent 0 [id number] [place] [facility] ([place]) [facility] Part B [id number] Family Dependent 0 [id number] [place] [facility] ([place]FL) [facility] Part B [id number] Family Dependent 0 [id number] [place] [facility] ([place]FL) [facility] Part B [id number] Family Dependent 0 [id number] [place] [facility] ([place]FL) [facility] Part B [id number] Family Dependent 0 [id number] [place] [facility] ([place]FL) [facility] Part B [id number] Family Dependent 0 [id number] [place] [facility] ([place]FL) [facility] [id number] Family Dependent 0 [id number] [facility] [id number] Family Dependent 0 [id number] [place] [facility] ([place]FL) [facility] [id number] Family Dependent 0 [id number] [employer] Part B [id number] Family Dependent [id number] [employer] Medigap Part B [id number] Family Dependent [id number] [employer] Medig[employer] Part B [id number] Family Dependent [id number] [employer] Medig[employer] Part B [id number] Family Dependent [id number] [employer] Medigap Part B [id number] Family Dependent [id number] Medicare Natl Gov't Servi Medicare Primary [id number] Self [id number] For Life WPS [facility] [id number] Self [id number] [employer] Medigap Part B [id number] Family Dependent [id number] [employer] Medigap Part B [id number]9.4595.68201.0 Family Dependent [id number] [employer] Medigap Part B [id number]9.4595.79914.0 Family Dependent [id number] [employer] Medigap Part B [id number] Family Dependent [id number] [employer] Medigap Part B [id number]9.4595.51308.0 Family Dependent [id number] [employer] Medig[employer] Part B [id number]9.4595.05780.0 Family Dependent [id number] Medicare [place] Primary [id number] [id number] Self 6 [id number] For Life Medigap Part B [id number] [id number] Family Dependent [id number] [employer] Medigap Part B [id number] Family Dependent 299007 [employer] Medigap Part B [id number] Family Dependent [id number] MEDICARE C [id number] S [id number] A FOR LIFE O [id number] P [id number] MEDICARE C [id number] S [id number] WPS For Life Medigap Part B [id number] Family Dependent Medicare [place]/[facility] Medicare Primary [id number] Self Medicare Part B [facility] Other 0 [id number] Self 0 MEDICARE [id number] SP [id number] A [employer] Medigap Part B [id number] Family Dependent [id number] Medicare Part B of [facility] Other 0 [id number] Self 0 Medicare C [id number] SELF [id number] For Life F [id number] SELF [id number] PGBA [facility] [id number] SP [id number] Problems, Conditions, and Diagnoses Code Display Name Description Problem Type Effective Dates Data Source(s) 625041196 Transient cerebral ischemia Transient cerebral ischemi a Problem 08/29/2020 12:00:00 AM EST [facility] ([facility], ) [id number] Vertigo Vertigo Problem 08/29/2020 12:00:00 AM ES T [facility] ([facility], ) Surgeries/Procedures Procedure Description Date Indications Data Source(s) OFFICE OUTPATIENT VISIT 25 MINUTES 03/05/2021 12:00:00 AM EDBrenda GRIFFIN ([facility]) Surgical / procedural history Hysterectomy 1970, Morg ani Hernia 2013 Surgical / procedural history Hysterectomy 1971, Morgani Hernia 2014 02/05/2021 12:00:00 AM MEG BOWERS (Adis Ingram MD [facility]) 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 Duncan 201802/05/2021 12:00:00 AM MEG BOWERS (Adis mckeon MD [facility]) ARTHROCENTESIS ASPIR&/INJECTION MAJOR JT/BURSA 021 12:00:00 AM EDBrenda GRIFFIN ([facility] ) ARTHROCENTESIS ASPIR&/INJECTION MAJOR JT/BURSA 021 12:00:00 AM EDT [facility] ([facility] ) ARTHROCENTESIS ASPIR&/INJECTION MAJOR JT/BURSA 12:00:00 AM EDT [facility] ([facility] ) OFFICE OUTPATIENT VISIT 25 MINUTES 01/01/2021 12:00:00 AM EDT [facility] ([facility]) ARTHROCENTESIS ASPIR&/INJECTION MAJOR JT/BURSA 021 12:00:00 AM EDT [facility] ([facility]) RADIOLOGIC EXAM KNEE COMPLETE 4/MORE VIEWS 10/27/2020 12:00:00 AM EDT [facility] ([facility]) RADIOLOGIC EXAM KNEE COMPLETE 4/MORE VIEWS 10/27/2020 12:00:00 AM EDT [facility] ([facility]) Mammogram 09/24/2020 12:00:00 AM EST M EDENT ([facility]) Magnetic Resonance Angiogtaphy Head W/O Contrast Material(S) 09/09/2020 12:00:00 AM EST [facility] ([facility] ) Magnetic Resonance Angiogtaphy Head W/O Contrast Material(S) 09/09/2020 12:00:00 AM EST [facility] ([facility] ) Magnetic Resonance Angiography Neck W/O Contrast Materials 09/09/2020 12:00:00 AM EST [facility] ([facility] ) Magnetic Resonance Angiography Neck W/O Contrast Materials 09/09/2020 12:00:00 AM EST [facility] ([facility] ) MRI BRAIN BRAIN STEM W/O CONTRAST MATERIAL 09/09/2020 12:00:00 AM EST [facility] ([facility], ) MRI BRAIN BRAIN STEM W/O CONTRAST MATERIAL 09/09/2020 12:00:00 AM EST [facility] ([facility], ) OFFICE OUTPATIENT VISIT 15 MINUTES 09/05/2020 12:00:00 AM EST [facility] ([facility]) ARTHROCENTESIS ASPIR&/INJECTION MAJOR JT/BURSA 12:00:00 AM EST [facility] ([facility] ) Results ID Date Data Source [id number] 06/01/2021 02:09:[address] [facility] Name Value Range Interpretation Code Description Data Giovanna rce(s) Supporting Document(s) SARS-CoV-2 RNA Resp Ql PHOEBE+probe Negative [facility] This lab was ordered by [facility] and reported by [facility]. ID Date Data Source [id number] 06/01/2021 11:50:00 AM EDT [facility] ([facility]) Name Value Range Interpretation Code Description Data Giovanna rce(s) Supporting Document(s) Bacteria identified in Urine by Culture Laboratory test result [facility] FULL REPORT IN LAB NOTES (e[facility] and [facility] ). NO GROWTH CLINICAL SIGNIFICANCE 1 ORGANISM ID Date Data Source [id number] 06/01/2021 11:50:00 AM EDT [facility] ([facility] Name Value Range Interpretation Code Description Data Giovanna rce(s) Supporting Document(s) Appearance, Urine Laboratory test result [facility] PH,Urine 5.0 units 5.0-9.0 [facility]) Color, Urine Laboratory test result MEDE NT ([facility] Specific [place] Urine Auto 1.020 1.002-1.035 [facility] ([facility]) Protein, Urine Auto Laboratory test result [facility] ([facility]) Glucose, Urine (Ua) Auto Laboratory test result [facility] Ketone, Urine Auto Laboratory test result [facility] Urobilinogen, Urine Auto 0.2 mg/dL 0.0-2.0 MEDEN T ([facility]) Bilirubin, Urine Auto Laboratory test result [facility] Nitrite, Urine Auto Laboratory test result [facility] Leukocyte Esterase, Urine Auto Laboratory test result [facility] ([facility]) Blood, Urine Blood Laboratory test result [facility] ([facility]) WBC, Urine Auto 2 /HPF 0-3 [facility] ([facility]) RBC, Urine Auto 0 /HPF 0-3 [facility] ([facility]) Squamous Epithelial Cell Ur AU 3 /HPF 0-6 [facility] ([facility]) Bacteria, Urine Auto Laboratory test result [facility] ([facility]) Hyaline Cast, Urine Auto 0 /LPF 0-1 MEDEN T ([facility]) Transitional Epithelial Auto 1 /HPF M EDENT ([facility]) Amorphous Sediment Laboratory test result [facility] ([facility]) ID Date Data Source [id number] 06/01/2021 11:49:00 AM EDT [facility] ([facility] Name Value Range Interpretation Code Description Data Giovanna rce(s) Supporting Document(s) Glucose [Mass/volume] in Serum or Plasma 89 mg/dL 74-99 [facility] ([facility]) 100-125 mg/dL PRE-DIABETES/FASTING >126 mg/dL DIABETES/FASTING Creatinine 1.0 mg/dL 0.6-1.3 [facility] ([facility] Urea nitrogen [Mass/volume] in Serum or Plasma 11 mg/dL 7-18 [facility] Chloride [Moles/volume] in Serum or Plasma 101 meq/L 98-107 [facility] ([facility]) Potassium [Moles/volume] in Serum or Plasma 4.1 meq/L 3.5-5.1 [facility] ([facility]) Sodium [Moles/volume] in Serum or Plasma 138 meq/L 136-145 [facility] ([facility]) Calcium [Mass/volume] in Serum or Plasma 9.6 mg/dL 8.5-10.1 [facility] Glomerular filtration rate/1.73 sq M pre dicted among non-blacks [Volume Rate/Area] in Serum or Plasma by Creatinine-based formula (MDRD) 54 mL/min [facility] ([facility]) Carbon dioxide, total [Moles/volume] in Serum or Plasma 32 meq/L 21 -32 [facility] Glomerular filtration rate/1.73 sq M pre dicted among blacks [Volume Rate/Area] in Serum or Plasma by Creatinine-based formula (MDRD) Laboratory test result [facility] ([facility]) <content>CHRONIC KIDNEY DISEASE STAGING PER NKF</content>
<content></content>
<content>STAGE I & II GFR >= 60 NORMAL TO MILDLY DECREASED</content>
<content>STAGE III GFR 30-59 MODERATELY DECREASED</content>
<content>STAGE IV GFR 15-29 SEVERELY DECREASED</content>
<content>STAGE V GFR <15 VERY LITTLE GFR LEFT</content>
<content>ESRD GFR <15 ON RESEARCH AND EVALUATION ANALYST</content>
<content></content> ID Date Data Source [id number] 06/01/2021 11:49:00 AM EDT [facility] ([facility]) Name Value Range Interpretation Code Description Data Giovanna rce(s) Supporting Document(s) Leukocytes [#/volume] in Blood by Automated count 4.0 x10*3/UL 4.1-10 .9 [facility] Erythrocytes [#/volume] in Blood by Automated count 5.05 x10*6/UL 4.2 0-6.30 [facility] ([facility] Hemoglobin [Mass/volume] in Blood 15.2 g/dL 12.0-18.0 [facility] ([facility]) MCV 90.3 fL 80.0-97.0 [facility]) MCH 30.2 pg 26.0-32.0 [facility] ([facility]) Hematocrit [Volume Fraction] of Blood by Automated count 45.7 % 3 7.0-51.0 [facility] MCHC 33.4 g/dL 31.0-38.0 [facility] ([facility]) Erythrocyte distribution width [Ratio] by Automated count 13.4 % 11.6-13.7 [facility] ([facility]) Lymph % 19.1 % 10.0-58.5 [facility] ([facility]) Platelets [#/volume] in Blood by Automated count 206 x10*3/UL 140-440 [facility] MPV 8.8 FL 7.8-11.0 [facility]) Mid % 4.9 % 1.7-9.3 [facility] ([facility]) Neut % 76.0 % 37.0-92.0 [facility] Lymph # 0.7 x10*3/UL 0.6-4.1 [facility] ([facility]) Mid # 0.2 x10*3/UL 0.1-0.6 [facility] ([facility]) Neut # 3.1 x10*3/UL 2.0-7.8 [facility] ([facility]) ID Date Data Source [id number] 05/19/2021 10:26:26 AM EDT [facility] PC[facility]: November ArnaldoDOB: 1945Provider: Aris [...] rce(s) Supporting Document(s) ID Date Data Source [id number] 05/05/2021 10:57:16 AM EDT [facility] PCName: Tawnya McintoshDOB: 1945Provider: Aris [...] Pre-op exam; Ordered By:Marc Pozo;Fax Results To (Case Specialist) : Rosalinda Gramajo Tobacco Use Screeni ng; [...] rce(s) Supporting Document(s) ID Date Data Source [id number] 03/22/2021 09:07:00 AM EDT [facility] Name Value Range Interpretation Code Description Data Giovanna rce(s) Supporting Document(s) SARS coronavirus 2 RNA Not Detected [facility] This lab was ordered by [facility] and rep orted by [facility]. ID Date Data Source [id number] 03/04/2021 08:53:00 AM EDT [facility] ([facility]) Name Value Range Interpretation Code Description Data Giovanna rce(s) Supporting Document(s) Thyrotropin [Units/volume] in Serum or Plasma by Detec tion limit <= 0.05 mIU/L 3.59 uIU/mL 0.36-3.74 [facility] ([facility] ) ID Date Data Source [id number] 03/04/2021 08:53:00 AM EDT [facility] ([facility]) Name Value Range Interpretation Code Description Data Giovanna rce(s) Supporting Document(s) Cholesterol [Mass/volume] in Serum or Plasma 168 mg/dL 131-200 [facility] ([facility]) Cholesterol in LDL [Mass/volume] in Serum or Plasma by calcu lation 66 CALC 50-159 [facility] ([facility]) Triglyceride [Mass/volume] in Serum or Plasma 63 mg/dL 30-150 [facility] ([facility]) Cholesterol in HDL [Mass/volume] in Serum or Plasma 89 mg/dL 35-60 [facility] ([facility]) ID Date Data Source [id number] 03/04/2021 08:53:00 AM EDT [facility] ([facility]) Name Value Range Interpretation Code Description Data Giovanna rce(s) Supporting Document(s) Glucose [Mass/volume] in Serum or Plasma 94 mg/dL 74-99 [facility] ([facility]) 100-125 mg/dL PRE-DIABETES/FASTING >126 mg/dL DIABETES/FASTING Sodium [Moles/volume] in Serum or Plasma 141 meq/L 136-145 [facility] ([facility]) Urea nitrogen [Mass/volume] in Serum or Plasma 14 mg/dL 7-18 [facility] ([facility]) Creatinine 0.9 mg/dL 0.6-1.3 [facility] ([facility]) Potassium [Moles/volume] in Serum or Plasma 4.0 meq/L 3.5-5.1 [facility] ([facility]) Chloride [Moles/volume] in Serum or Plasma 105 meq/L 98-107 [facility] ([facility]) Carbon dioxide, total [Moles/volume] in Serum or Plasma 30 meq/L 21 -32 [facility] ([facility]) Alkaline phosphatase isoenzyme [Units/volume] in Serum or Pl asma 69 mg/dL 46-116 [facility] ([facility]) Calcium [Mass/volume] in Serum or Plasma 9.2 mg/dL 8.5-10.1 [facility] ([facility]) Aspartate aminotransferase [Enzymatic activity/volume] in Serum or Plasma 22 U/L 15-37 [facility] ([facility] ) Total Bilirubin 0.6 mg/dL 0.2-1.0 [facility] ([facility]) Albumin [Mass/volume] in Serum or Plasma 3.7 g/dL 3.4-5.0 [facility] ([facility]) Proteinase 3 Ab [Units/volume] in Serum 6.3 g/dL 6.4-8.2 [facility] ([facility]) Alanine aminotransferase [Enzymatic activity/volume] in Seru m or Plasma 24 U/L 12-78 [facility] ([facility]) A/G Ratio 1.42 CALC 1.00-1.90 [facility]) Glomerular filtration rate/1.73 sq M pre dicted among non-blacks [Volume Rate/Area] in Serum or Plasma by Creatinine-based formula (MDRD) Laboratory test result [facility] ([facility] ) Glomerular filtration rate/1.73 sq M pre dicted among blacks [Volume Rate/Area] in Serum or Plasma by Creatinine-based formula (MDRD) Laboratory test result [facility] ([facility]) <content>CHRONIC KIDNEY DISEASE STAGING PER NKF</content>
<content></content>
<content>STAGE I & II GFR >= 60 NORMAL TO MILDLY DECREASED</content>
<content>STAGE III GFR 30-59 MODERATELY DECREASED</content>
<content>STAGE IV GFR 15-29 SEVERELY DECREASED</content>
<content>STAGE V GFR <15 VERY LITTLE GFR LEFT</content>
<content>ESRD GFR <15 ON RESEARCH AND EVALUATION ANALYST</content>
<content></content> ID Date Data Source [id number] 03/04/2021 08:53:00 AM EDT [facility] ([facility]) Name Value Range Interpretation Code Description Data Giovanna rce(s) Supporting Document(s) Leukocytes [#/volume] in Blood by Automated count 3.8 x10*3/UL 4.1-10 .9 [facility] ([facility]) Hemoglobin [Mass/volume] in Blood 14.3 g/dL 12.0-18.0 [facility] Erythrocytes [#/volume] in Blood by Automated count 4.81 x10*6/UL 4.2 0-6.30 [facility] MCV 88.7 fL 80.0-97.0 [facility] ([facility]) Hematocrit [Volume Fraction] of Blood by Automated count 42.7 % 3 7.0-51.0 [facility] ([facility]) MCH 29.8 pg 26.0-32.0 [facility] ([facility]) MCHC 33.6 g/dL 31.0-38.0 [facility] ([facility]) Erythrocyte distribution width [Ratio] by Automated count 12.7 % 11.6-13.7 [facility] ([facility]) MPV 9.1 FL 7.8-11.0 [facility] ([facility]) Platelets [#/volume] in Blood by Automated count 154 x10*3/UL 140-440 [facility] ([facility]) Lymph % 21.2 % 10.0-58.5 [facility] ([facility]) Mid % 5.5 % 1.7-9.3 [facility] Lymph # 0.8 x10*3/UL 0.6-4.1 [facility] ([facility]) Neut % 73.3 % 37.0-92.0 [facility] Mid # 0.2 x10*3/UL 0.1-0.6 [facility] ([facility]) Neut # 2.8 x10*3/UL 2.0-7.8 [facility] ([facility]) ID Date Data Source [id number] 09/24/2020 12:00:[address] [facility] Dinah Nunez DO Patient Name: ARNALDO,[id number] Date of : 1945[place] [address] Date of Exam: [facility]2020[facility] [address]#: Fax: [phone] EXAM: MAMMO SCREENING WITH CADCLINICAL [...] mammogram was read with the assistance of EV Connect, an FDAapproved computer aided detection system for [...] Name Value Range Interpretation Code Description [facility] Document(s) ID Date Data Source [id number] 08/13/2020 12:46:00 PM EST [facility] Name Value Range Interpretation Code Description Data [facility] rce(s) Supporting Document(s) Influenza A Amplification Laboratory test result [facility] ([facility]) Negative results do not preclude influen za or RSV virus infection and should not be used as the sole basis for treatment or other patient management decisions. Influenza B Amplification Laboratory test result [facility] ([facility]) Negative results do not preclude influen za or RSV virus infection and should not be used as the sole basis for treatment or other patient management decisions. RSV Amplification Laboratory test result [facility] ([facility]) Negative results do not preclude influen za or RSV virus infection and should not be used as the sole basis for treatment or other patient management decisions. Laboratory test finding (navigational concept) Laboratory test result [facility] ([facility]) A false negative result may occur [...] pathogens. DISCLAIMER: Testing was performed using the [employer] SARS-CoV-2 test. This test was developed and its performance characteristics determined by [employer]. This test has not been FDA cleared [...] or revoked sooner. ID Date Data Source [id number] 08/13/2020 12:46:00 PM EST [facility] Name Value Range Interpretation Code Description Data Giovanna rce(s) Supporting Document(s) SARS coronavirus 2 RNA [Presence] in Res piratory specimen by PHOEBE with probe detection [facility] This lab was ordered by [facility] a nd reported by [facility]. ID Date Data Source [id number] 08/13/2020 02:59:00 AM EST [facility] ([facility] Name Value Range Interpretation Code Description Data Giovanna rce(s) Supporting Document(s) Magnesium [Moles/volume] in Serum or Plasma 2.0 mg/dL 1.8-2.4 [facility] ([facility]) Thyrotropin [Units/volume] in Serum or Plasma by Detec tion limit <= 0.05 mIU/L 4.680 uIU/ML 0.358-3.740 [facility] ([facility] ) ID Date Data Source [id number] 08/13/2020 02:59:00 AM EST [facility] ([facility]) Name Value Range Interpretation Code Description Data Giovanna e(s) Supporting Document(s) Glucose, Fasting 105 mg/dL 70-100 [facility] ([facility]) Creatinine For GFR 0.86 mg/dL 0.55-1.30 [facility] ([facility]) Blood Urea Nitrogen 15 mg/dL 7-18 [facility] ([facility]) Glomerular Filtration Rate Laboratory test result [facility] ([facility]) <content>Units are mL/min/1.73 m2</content>
<content></content>
<content>Chronic Kidney Disease Staging per NKF:</content>
<content></content>
<content>Stage I & II GFR >=60 Normal to Mildly Decreased</content>
<content>Stage III GFR 30- 59 Moderately Decreased</content>
<content>Stage IV GFR 15-29 Severely Decreased</content>
<content>Stage V GFR <15 Very Little GFR Left</content>
<content>ESRD GFR <15 on RESEARCH AND EVALUATION ANALYST</content>
<content></content> Potassium Serum 3.5 meq/L 3.5-5.1 [facility] ([facility]) Sodium Level 141 meq/L 136-145 [facility] ([facility]) Carbon Dioxide Level 26 meq/L 21-32 [facility] ([facility]) Anion Gap 6 meq/L 8-16 [facility]) Chloride Level 109 meq/L 98-107 [facility] ([facility]) Calcium Level 8.7 mg/dL 8.8-10.2 [facility] ([facility]) Ast/Sgot 20 U/L 7-37 [facility] ([facility]) Alt/SGPT 21 U/L 12-78 [facility] ([facility]) Bilirubin,Total 0.5 mg/dL 0.2-1.0 [facility] ([facility]) Alkaline Phosphatase 68 U/L 45-117 [facility] ([facility]) Total Protein 6.4 GM/DL 6.4-8.2 [facility] ([facility]) Albumin/Globulin Ratio 1.3 1.2-2.2 [facility] ([facility]) Albumin 3.6 GM/DL 3.2-5.2 [facility]) ID Date Data Source [id number] 08/13/2020 02:59:00 AM EST [facility] ([facility]) Name Value Range Interpretation Code Description Data Giovanna rce(s) Supporting Document(s) White Blood Count 5.3 10 4.0-10.0 MEDENT ([facility]) Hemoglobin 13.5 g/dL 12.0-15.5 [facility] Red Blood Count 4.55 10 4.00-5.40 MEDENT ([facility]) Mean Corpuscular Volume 94.1 fl 80.0-96.0 MEDENT ([facility]) Hematocrit 42.8 % 36.0-47.0 [facility] Mean Corpuscular Hemoglobin 29.7 pg 27.0-33.0 ME DENT ([facility]) Mean Corpuscular HGB Conc 31.5 g/dL 32.0-36.5 MEDE NT ([facility]) Red Cell Distribution Width 13.2 % 11.5-14.5 GA DENT ([facility]) Nucleated Red Blood Cell % 0.0 % 0-0 MED ENT ([facility]) Platelet Count, Automated 173 10 150-450 MEDE NT ([facility]) Procedure Social History Code Duration Value Status Description Data Source(s ) Smoking 04/10/2021 10:52:19 PM EDT Never smoked tobacco (findi ng) completed Never smoked tobacco (finding) ROBINSON (Adis Ingram MD [facility]) Smoking 03/19/2021 09:17:43 AM EDT Never smoked tobacco (findi ng) completed Never smoked tobacco (finding) [facility]INSON (Adis Ingram MD [facility]) Vital Signs ID Date Data Source UNK Name Value Range Interpretation Code Description Data Source(s) Systolic blood pressure 126 mm[Hg] 126 mm[Hg] M EDENT ([facility]) Diastolic blood pressure 70 mm[Hg] 70 mm[Hg] MEDENT ([facility]) Heart rate 79 /min 79 /min MEDENT ([facility]) Body height 64 [in_i] 64 [in_i] MEDENT ([facility]) 5'4" Body weight 196.00 [lb_av] 196.00 [lb_av] MEDEN T ([facility]) Body mass index (BMI) [Ratio] 33.6 kg/m2 33.6 k g/m2 MEDENT ([facility]) Heart rate 72 /min 72 /min MEDENT ([facility]) Body height 64 [in_i] 64 [in_i] MEDENT ([facility]) 5'4" Systolic blood pressure 128 mm[Hg] 128 mm[Hg] [facility] Diastolic blood pressure 64 mm[Hg] 64 mm[Hg] MEDENT ([facility]) Body weight 201.12 [lb_av] 201.12 [lb_av] MEDEN T ([facility]) Oxygen saturation in Arterial blood by Pulse oximetry 96 % 96 % MEDENT ([facility]) Air Body mass index (BMI) [Ratio] 34.5 kg/m2 34.5 k g/m2 MEDENT ([facility]) Body temperature 97.3 [degF] 97.3 [degF] MEDENT ([facility] ) Body weight 201.38 [lb_av] 201.38 [lb_av] MEDEN T ([facility] ) Body mass index (BMI) [Ratio] 36.0 kg/m2 36.0 k g/m2 MEDENT ([facility] ) Body height 62.75 [in_i] 62.75 [in_i] MEDENT ([facility] ) 5'2.75" Respiratory rate 12 /min 12 /min MEDENT ( [facility], ) Body weight 195.00 [lb_av] 195.00 [lb_av] MEDEN T ([facility], ) Body mass index (BMI) [Ratio] 34.5 kg/m2 34.5 k g/m2 MEDENT ([facility], ) [place] body weight 115 [lb_av] 115 [lb_av] MEDEN T ([facility]) Body height 63 [in_i] 63 [in_i] [facility], ) 5'3" Body height 64 [in_i] 64 [in_i] MEDENT ([facility]) 5'4" Systolic blood pressure 128 mm[Hg] 128 mm[Hg] [facility]) Diastolic blood pressure 70 mm[Hg] 70 mm[Hg] MEDENT ([facility]) Heart rate 84 /min 84 /min MEDENT ([facility]) Body weight 201.00 [lb_av] 201.00 [lb_av] MEDEN T ([facility]) Body mass index (BMI) [Ratio] 34.5 kg/m2 34.5 k g/m2 [facility] ([facility]) [place] body weight 115 [lb_av] 115 [lb_av] MEDEN T ([facility], ) Body weight 195.00 [lb_av] 195.00 [lb_av] MEDEN T ([facility]) Body mass index (BMI) [Ratio] 34.5 kg/m2 34.5 k g/m2 MED[facility] ([facility]) Respiratory rate 12 /min 12 /min [facility] ( [facility]) Body height 63 [in_i] 63 [in_i] [facility] ([facility]) 5'3" Diastolic blood pressure 88 mm[Hg] 88 mm[Hg] [facility]) Systolic blood pressure 148 mm[Hg] 148 mm[Hg] [facility] ([facility]) Systolic blood pressure 140 mm[Hg] 140 mm[Hg] [facility] ([facility]) RT Arm Diastolic blood pressure 90 mm[Hg] 90 mm[Hg] [facility] ([facility]) RT Arm Body height 64 [in_i] 64 [in_i] MEDENT ([facility]) 5'4" Body weight 199.50 [lb_av] 199.50 [lb_av] MEDEN T ([facility]) Body mass index (BMI) [Ratio] 34.2 kg/m2 34.2 k g/m2 MED[facility] ([facility]) Heart rate 68 /min 68 /min MED[facility] ([facility]) Body weight 196.00 [lb_av] 196.00 [lb_av] [facility] Oxygen saturation in Arterial blood by Pulse oximetry 97 % 97 % [facility] ([facility]) RM Air Body mass index (BMI) [Ratio] 33.6 kg/m2 33.6 k g/m2 [facility]) Systolic blood pressure 114 mm[Hg] 114 mm[Hg] EDENT ([facility]) Diastolic blood pressure 72 mm[Hg] 72 mm[Hg] [facility]) Heart rate 88 /min 88 /min [facility]) Body height 64 [in_i] 64 [in_i] [facility] ([facility]) 5'4"
[2021-06-16] VITALS (11 sets, daily range): BP systolic 114–129; BP diastolic 56–84
[2021-06-16] MEDS: PANTOPRAZOLE SODIUM 40 MG in D5W MINI-BAG PLUS 50 ML IV SCH ×5 (00:30→20:01)
[2021-06-16] MEDS ORDERED: OCTREOTIDE ACETATE 1,200 MCG in NS 238.8 ML IV SCH (00:30)
[2021-06-16] MEDS ORDERED: SIMV40TA20 PO (00:35)
[2021-06-16] MEDS ORDERED: ONDA4TAB6 PO (00:35)
[2021-06-16] MEDS ORDERED: FOLI1TAB11 PO (00:35)
[2021-06-16] MEDS ORDERED: LEXA1TAB2 PO (00:35)
[2021-06-16] MEDS ORDERED: ALBU83IN INH (00:35)
[2021-06-16] MEDS ORDERED: DICY1CAP8 PO (00:35)
[2021-06-16] MEDS ORDERED: IBUP-1720 PO (00:35)
[2021-06-16] MEDS ORDERED: PROAAER10 INH (00:35)
[2021-06-16] MEDS ORDERED: ACET-897 PO (00:35)
[2021-06-16] MEDS ORDERED: MECL-86 PO (00:35)
[2021-06-16] MEDS ORDERED: VITA500T41 PO (00:35)
[2021-06-16] MEDS ORDERED: HOME MED LIST COMPLETE! XX SCH (00:40)
--- NOTE | 2021-06-16 01:24 | HPEPDOC ---
[facility] Medical History & Physical Date of Admission Jun 16, 2021 Date of Service: Jun 16, 2021 Attending Physician: GABRIELE LOGAN MD History and Physical CHIEF COMPLAINT: GI bleed HISTORY OF PRESENT ILLNESS: Tawnya is a 76-year-old female who presents to ED via EMS following GI bleed. She tells me she went to the bathroom earlier today and, after sitting on the toilet, found herself on the floor "covered in blood." She tells me she does not know how long she had passed out but that her gentleman friend who lives with her mediately called 911 so "it must not have been that long." She does tell me that she had soiled herself in black tarry stool and had also vomited blood while last out. Denies hitting her head. Denies history of LOC, GI bleeds, blood transfusions. Of note, she tells me she had elective right total knee replacement in [place] 06/08 which was uncomplicated. She tells me she has been taking iron pills in preparation for her recent surgery (since before 06/04) and her stool has been "black" since then. 06/10, she began experiencing nausea with associated vomiting, diarrhea, abdominal pain that has been progressively worsening. Describes abdominal pain as generalized intermittent "labor pains" without known aggravating/alleviating factors. Patient tells me that she was prescribed ASA, ibuprofen, Celebrex following her knee replacement and attributes these medications to her worsening abdominal discomfort. She stopped taking her Celebrex 06/11, and noted minimal improvement in her abdominal pain. She has also been taking Bentyl, typically for her IBS, with mild improvement of abdominal symptoms. Reports poor oral intake 2/2 abdominal discomfort the last few days. Denies recent illness. Denies lightheadedness, headache, changes in vision, chest pain, palpitations, SOB, cough. Denies constipation, changes in urination, dysuria, hematuria, changes in sensation. In ED, VSS, CMP, coag WNL. CBC significant for H&H 6.9/21.2. EKG NSR. CT abdomen/pelvis unremarkable, as noted below. Patient was started on Protonix drip and received 1 unit PRBCs. PAST MEDICAL HISTORY: 1. Hypothyroidism. 2. IBS. 3. GERD 4. Asthma 5. Depression 6. HLD 7. Arthritis PAST SURGICAL HISTORY: 1. Bilateral eye/eyebrow lift. 2. Total hysterectomy. 3. Morgagni hernia repair (2011) 4. Tonsillectomy 4. Right total knee replacement SOCIAL HISTORY: Marital status: Single. Resides in: Home Tobacco use: Denies ETOH: Denies Illicit drug use: Denies Other relevant social factors: Currently lives with a gentleman friend FAMILY HISTORY: CAovarian ALLERGIES: Please see below. REVIEW OF SYSTEMS: CONSTITUTIONAL: Denies fever/chills, fatigue. HEENT: Denies headache, changes in vision, nasal congestion, rhinorrhea, sore throat. CARDIOVASCULAR: Denies chest pain, palpitations. RESPIRATORY: Denies shortness of breath, cough. GASTROINTESTINAL: Reports abdominal pain, nausea with vomiting, diarrhea, black tarry stool. Denies constipation GENITOURINARY: Denies urinary changes, dysuria, hematuria. SKIN: Reports bruising right lower extremity 2/2 recent surgery. MUSCULOSKELETAL: Denies weakness. NEUROLOGICAL: Denies dizziness, changes in sensation, numbness/tingling. HOME MEDICATIONS: Please see below. PHYSICAL EXAMINATION: VITAL SIGNS: Temperature 98.870, pulse 78, respiratory rate 18, blood pressure 114/59, pulse oximetry 95% on room air. GENERAL APPEARANCE: Alert, awake, laying in stretcher, NAD. HEENT: NC/AT, EOMI nares patent, moist mucous membranes. CARDIOVASCULAR: RRR, normal heart sounds, no MRG. LUNGS: CTA bilaterally, no WRR, no accessory muscles used. ABDOMEN: Soft, nondistended, mild generalized tenderness with deep palpation, no rmal bowel sounds. SKIN: Right lower extremity with significant bruising and bandage overlying right knee clean, intact, unsaturated. No significant warmth or signs of infection. MUSCULOSKELETAL: Normal ROM, strength 5/5. EXTREMITIES: No edema/cyanosis, 2+ DP/PT pulses palpated bilaterally NEUROLOGICAL: CN III-XII intact, sensation intact. PSYCHIATRIC: AOx3, no depressed/anxious mood. LABORATORY DATA: See below. IMAGING: CT abdomen/pelvis (06/15) 1. Possible cirrhosis as described above. 2. A small hiatal hernia is present. 3. Inflammatory changes at the duodenal sweep may indicate acute duodenitis and less likely related to adjacent pancreatitis. 4. There has been a hysterectomy. 5. Mild diverticulosis is present in the distal colon. No diverticulitis. MICROBIOLOGY: Please see below. ASSESSMENT/PLAN: Tawnya is a 76-year-old female PMH GERD, IBS who recently had elective right total knee replacement in [place] 06/08, who presented following syncopal epis ode where she soiled herself and black tarry stool and hematemesis, found to have H&H 6.9/21.2, concerning for GI hemorrhage. #GI hemorrhage, acute In ED, H&H 6.9/21.2. Patient received 1U PRBCs. Patient has had a significant decrease in H&H from baseline (08/14/20: H&H 13/41.8) Continue blood transfusion with 3 additional units PRBC Continue Protonix drip Start octreotide drip Start sucralfate 3 times daily At this time, patient is not actively bleeding. Continue to monitor H&H every 6 hours Hold home ASA, ibuprofen, Celebrex as these postop medications most likely contributed to her current GI hemorrhage Will most likely require upper/lower scope. General surgery (Dr. Carty) on consult, appreciate recommendations #Syncope, most likely 2/2 GI hemorrhage, poor oral intake In ED, EKG NSR Start IVF Plan, as noted above #S/p elective right total knee replacement Patient recently had elective right total knee replacement in [place] 06/08 without complications Right knee bandage clean, intact, unsaturated out significant skin changes Continue home Tylenol 500mg Q4HP for moderate pain Continue wound care, as appropriate Will most likely require PT/OT eval prior to discharge #Hypothyroidism Continue home levothyroxine 50 mcg #HLD Continue home atorvastatin 40 mg #Depression Continue home Lexapro 20 mg #DVT prophylaxis Teds and sequentials Avoid full AC, pending EGD for potential ulcer DIET: N.p.o. ACTIVITY: Bedrest, fall risk precautions DISPO: Pending clinical improvement CODE STATUS: Full code Vital Signs Vital Signs Date Time Temp Pulse Resp B/P (MAP) Pulse Ox O2 Delivery O2 Flow Rate FiO2 06/15/21 23:45 125/58 (80) 06/15/21 23:40 90 97 06/15/21 23:30 97.0 18 06/15/21 22:45 Room Air Laboratory Data Labs 24H Laboratory Tests 2 06/15/21 19:33: Nucleated Red Blood Cells % (auto) 0.0, Anion Gap 9, Glomerular Filtration Rate > 60.0, Calcium Level 7.6L, Total Bilirubin 0.4, Direct Bilirubin 0.2, Aspartate Amino Transf (AST/SGOT) 14, Alanine Aminotransferase (ALT/SGPT) 15, Alkaline Phosphatase 62, Total Protein 4.5L, Albumin 2.0L, Albumin/Globulin Ratio 0.8L, Lipase 252 06/15/21 19:44: Prothrombin Time 13.8, Prothromb Time International Ratio 1.02, Activated Partial Thromboplast Time 28.2 06/15/21 21:15: Coronavirus (COVID-19)(PCR) NEGATIVE, Influenza Type A (RT-PCR) NEGATIVE, Influe nza Type B (RT-PCR) NEGATIVE, Respiratory Syncytial Virus (PCR) NEGATIVE CBC/BMP Laboratory Tests 06/15/21 19:33 Home Medications Scheduled Ascorbic Acid (Ascorbic Acid) 500 Mg Tablet, 500 MG PO DAILY Calcium Carbonate/Vitamin D3 (Calcium 500 mg-Vit D3 5 Mcg Tb) 500 Mg-200 Tablet, 1 EACH PO QHS Cyanocobalamin (Vitamin B-12) (Vitamin B-12) 500 Mcg Tablet, 500 MCG PO DAILY Escitalopram Oxalate (Lexapro) 20 Mg Tablet, 20 MG PO QHS Folic Acid (Folic Acid) 1 Mg Tablet, 1 MG PO DAILY Lactobacillus Rhamnosus GG (Culturelle) 1 Each Capsule, 1 CAP PO DAILY Levothyroxine Sodium (Synthroid) 50 Mcg Tab, 50 MCG PO DAILY Salmeterol/Fluticasone (Advair 250-50 Diskus) 1 Each Blst.w.dev, 1 PUFF INH BID Simvastatin (Simvastatin) 40 Mg Tablet, 40 MG PO QHS Scheduled PRN Acetaminophen (Tylenol Extra Strength) 500 Mg Tablet, 500 MG PO Q4H PRN for MODERATE PAIN (PS 5-7) Albuterol Sulf (Albuterol Sulfate) 2.5 Mg/3 Ml Vial.neb, 2.5 MG INH QID PRN for SHORTNESS OF BREATH Albuterol Sulfate (Proair Hfa) 8.5 Gm Hfa.aer.ad, 2 PUFF INH Q4H PRN for SHORTNESS OF BREATH Dicyclomine HCl (Dicyclomine HCl) 10 Mg Capsule, 10 MG PO TID PRN for CRAMPS Ibuprofen (Ibuprofen) 200 Mg Tablet, 200 MG PO Q6H PRN for MILD PAIN (PS 1-4) Meclizine HCl (Meclizine HCl) 25 Mg Tablet, 25 MG PO Q8H PRN for VERTIGO/DIZZINESS Ondansetron (Ondansetron Odt) 4 Mg Tab.rapdis, 4 MG PO Q4H PRN for NAUSEA Allergies Coded Allergies: No Known Drug Allergies (Verified Allergy, Unknown, 08/13/20) GME ATTESTATION GME ATTESTATION My faculty preceptor for this patient encounter was physically present during the encounter and was fully available. All aspects of the patient interview, examination, medical decision making process, and medical care plan development were reviewed and approved by the faculty preceptor. The faculty preceptor is aware and concurs with the plan as stated in the body of this note and will attest to such by his/her cosignature. ATTENDING NOTE IRashida, have independently examined this patient and performed my own physical exam, as well as reviewed the documentation and addend when necessary. I have discussed in detail with the resident / student the findings and plan of treatment as documented by the resident / student. I agree with their findings and treatment plan except for any changes as outlined below. Daija Gay DO Jun 16, 2021 01:24 GABRIELE LOGAN MD Jun 16, 2021 05:45
[2021-06-16 01:36] LABS: HEMATOCRIT 23.9 % (36.0-47.0); HEMOGLOBIN 7.8 g/dl (12.0-15.5); MEAN CORPUSCULAR HEMOGLOBIN 31.2 pg (27.0-33.0); MEAN CORPUSCULAR HGB CONC 32.6 g/dl (32.0-36.5); MEAN CORPUSCULAR VOLUME 95.6 fl (80.0-96.0); PLATELET COUNT, AUTOMATED 298 10^3/uL (150-450); WHITE BLOOD COUNT 8.9 10^3/uL (4.0-10.0)
[2021-06-16] MEDS ORDERED: MECLIZINE 25 MG TABLET PO PRN (01:45)
[2021-06-16] MEDS ORDERED: ALBUTEROL SULFATE 2.5 MG/0.5 ML INH NEB SOLN INH PRN (01:45)
[2021-06-16] MEDS ORDERED: DICYCLOMINE 10 MG CAP PO PRN (01:45)
[2021-06-16] MEDS ORDERED: ALBUTEROL 90 MCG/ACT 8GM HFA INHALER INH PRN (01:45)
[2021-06-16] MEDS ORDERED: ONDANSETRON 4 MG ORAL DISINTEGRATING TAB PO PRN (01:45)
[2021-06-16] MEDS ORDERED: NS 1,000 ML IV SCH (01:55)
[2021-06-16] MEDS: ACETAMINOPHEN 500 MG TAB PO PRN ×3 (02:35→22:16)
--- NOTE | 2021-06-16 06:43 | ECGEPIP ---
[facility] - ED Test Date: 2021-06-15 Pat Name: DOMO MOON Department: Room: [place] [address] Gender: Female Manager Action: LAZARO : 1945 Requested By: LYNETTE Prather Order Number: [id number] Reading MD: Darrell Gillis Measurements Intervals What Cheer Rate: 76 P: 15 CO: 136 QRS: 20 QRSD: 84 T: 40 QT: 404 QTc: 454 Interpretive Statements Normal sinus rhythm Nonspecific ST T wave changes Borderline prolonged QTc cw 02/16/18 rate decreased improved inferior st t wave changes Electronically Signed on 06-16-2021 6:43:02 EST by Darrell Gillis
[2021-06-16] MEDS: SIMVASTATIN 40 MG TAB PO SCH ×2 (07:28→20:40)
[2021-06-16] MEDS: ESCITALOPRAM OXALATE 10 MG TAB (LEXAPRO) PO SCH ×2 (07:28→20:40)
[2021-06-16] MEDS: ADVAIR HFA 115/21MCG INHALER INH SCH ×2 (08:00→20:29)
[2021-06-16] MEDS ORDERED: ASCORBIC ACID 500 MG TAB PO SCH (09:00)
[2021-06-16] MEDS ORDERED: CYANOCOBALAMIN 500 MCG TAB PO SCH (09:00)
[2021-06-16] MEDS ORDERED: FOLIC ACID 1 MG TAB PO SCH (09:00)
[2021-06-16] MEDS ORDERED: ENOXAPARIN 40MG/0.4ML SYRINGE (J1650 PER 10MG) SC SCH (09:00)
[2021-06-16] MEDS: LEVOTHYROXINE 50MCG TABLET (0.05MG) PO SCH (09:19)
[2021-06-16] MEDS: SUCRALFATE 1 GM TAB PO SCH ×3 (09:19→20:39)
[2021-06-16 11:39] LABS: HEMATOCRIT 35.3 % (36.0-47.0)
[2021-06-16 11:43] LABS: HEMOGLOBIN 11.9 g/dl (12.0-15.5)
[2021-06-16 12:58] LABS: PERCENT SATURATION 24.4 % (13.2-45.0)
[2021-06-16] MEDS ORDERED: LIDOCAINE 2% 100MG/5ML SDV (FOR ANES.) As Ordered ONE (13:05)
[2021-06-16] MEDS ORDERED: propofoL 200 MG/20 ML VIAL As Ordered ONE (13:05)
[2021-06-16] MEDS ORDERED: fentaNYL 100 MCG/2 ML INJECTION (J3010) As Ordered ONE (13:05)
[2021-06-16 13:09] LABS: FOLATE 10.8 NG/ML (>5.4)
[2021-06-16] MEDS ORDERED: oxyCODONE 5MG TAB PO PRN ×2 (14:55→20:35)
[2021-06-16] MEDS ORDERED: ONDANSETRON 4MG/2ML VIAL IV PRN (14:55)
[2021-06-16] MEDS ORDERED: fentaNYL 100 MCG/2 ML INJECTION (J3010) IV PRN (14:55)
[2021-06-16] MEDS ORDERED: LR 1,000 ML IV SCH (14:55)
--- NOTE | 2021-06-16 15:27 | ROOR ---
Patient Name: November Clobridge Procedure Date: 06/16/2021 2:10 PM Date of : 1945 Age: 76 Gender: Female Note Status: Finalized Procedure: Upper GI endoscopy Indications: Melena, Recent gastrointestinal bleeding Providers: Jerome Carty MD Referring MD: 2. Inpatient 2. Inpatient Requesting Provider: Medicines: Monitored Anesthesia Care Complications: No immediate complications. Procedure: Pre-Anesthesia Assessment: - Prior to the procedure, a History and Physical was performed, and patient medications and allergies were reviewed. The patient is competent. The risks and benefits of the procedure and the sedation options and risks were discussed with the patient. All questions were answered and informed consent was obtained. Patient identification and proposed procedure were verified by the physician, the nurse and the mobile heavy equipment mechanic in the procedure room. Mental Status Examination: alert and oriented. Prophylactic Antibiotics: The patient does not require prophylactic antibiotics. Prior Anticoagulants: The patient has taken no previous anticoagulant or antiplatelet agents. ASA Grade Assessment: III - A patient with severe systemic disease. After reviewing the risks and benefits, the patient was deemed in satisfactory condition to undergo the procedure. The anesthesia plan was to use monitored anesthesia care (MAC). Immediately prior to administration of medications, the patient was re-assessed for adequacy to receive sedatives. The heart rate, respiratory rate, oxygen saturations, blood pressure, adequacy of pulmonary ventilation, and response to care were monitored throughout the procedure. The physical status of the patient was re-assessed after the procedure. The Endoscope was introduced through the mouth, and advanced to the second part of duodenum. The upper GI endoscopy was accomplished without difficulty. The patient tolerated the procedure well. Findings: Non-severe esophagitis with no bleeding was found at the gastroesophageal junction. Fifteen non-bleeding superficial gastric ulcers with no stigmata of bleeding were found in the gastric antrum and in the prepyloric region of the stomach. The largest lesion was 10 mm in largest dimension. One non-bleeding cratered duodenal ulcer with no stigmata of bleeding was found in the first portion of the duodenum. The lesion was 10 mm in largest dimension. The second portion of the duodenum was normal. Impression: - Non-severe reflux esophagitis. - Non-bleeding gastric ulcers with no stigmata of bleeding. - Non-bleeding duodenal ulcer with no stigmata of bleeding. - Normal second portion of the duodenum. - No specimens collected. Recommendation: - Return patient to hospital hui for ongoing care. - NPO. Procedure Code(s): --- Professional --- 50738, Esophagogastroduodenoscopy, flexible, transoral; diagnostic, including collection of specimen(s) by brushing or washing, when performed (separate procedure) Diagnosis Code(s): --- Professional --- K21.0, Gastro-esophageal reflux disease with esophagitis K25.9, Gastric ulcer, unspecified as acute or chronic, without hemorrhage or perforation K26.9, Duodenal ulcer, unspecified as acute or chronic, without hemorrhage or perforation K92.1, Melena (includes Hematochezia) K92.2, Gastrointestinal hemorrhage, unspecified CPT copyright 2019 [employer]. All rights reserved. The codes documented in this report are preliminary and upon collection card clerk review may be revised to meet current compliance requirements. Attending Participation: I personally performed the entire procedure. Jerome Carty MD Jerome Carty MD 06/16/2021 3:27:01 PM Electronically signed by Jerome Carty MD Number of Addenda: 0 Note Initiated On: 06/16/2021 2:10 PM Estimated Blood Loss: Estimated blood loss: none.
--- NOTE | 2021-06-16 15:38 | IPNPDOC ---
Subjective Date Seen The patient was seen on 06/16/21. Subjective Chief Complaint/HPI Complain of upper abdominal pain only. Had EGD. Objective Physical Examination General Exam: Positive: Alert, Cooperative, No Acute Distress Eye Exam: Positive: PERRLA, Conjunctiva & lids normal, EOMI; Negative: Sclera icteric Neck Exam: Positive: Supple; Negative: JVD, thyromegaly Chest Exam: Positive: Clear to auscultation, Normal air movement Heart Exam: Positive: Rate Normal, Regular Rhythm, Normal S1, Normal S2; Negative: Murmurs, Rubs Abdomen Exam: Positive: Normal bowel sounds, Soft, Tenderness (epigastric); Negative: Hepatospenomegaly Extremity Exam: Positive: Normal pulses; Negative: Clubbing, Cyanosis, Edema Psych Exam: Positive: Memory Intact, Oriented x 3 Assessment /Plan Assessment This is a 76-year-old female with past medical history of hypothyroid, GERD, IBS, asthma, depression, hyperlipidemia, obesity, status post knee replacement on 06/08/2021, who presents to ED via EMS following GI bleed and syncopal episode. She went to the bathroom and, after sitting on the toilet, found herself on the floor "covered in blood." She does not know how long she had passed out but that her gentleman friend who lives with her mediately called 911. She had soiled herself in black tarry stool and had also vomited blood while passed out. Denies hitting her head. Denies history of LOC, GI bleeds, blood transfusions. Of note, patient had elective right total knee replacement in [place] 06/08 which was uncomplicated. On 06/10, she began experiencing nausea with associated vomiting, diarrhea, abdominal pain. She was prescribed ASA, ibuprofen, Celebrex following her knee replacement. CT abdomen and pelvis shows cirrhotic liver without any splenomegaly, signs of possible duodenitis she was admitted for GI bleed and acute blood loss anemia. GI bleed with acute blood loss anemia Peptic ulcer disease EGD showed Deep Duodenal ulcer and multiple superficial ulcers and erossions in the prepyloric region. No varices. CT abdomen and pelvis shows cirrhotic liver and hepatic steatosis Received 4 units of PRBC Will continue on PPI infusion Stop octreotide infusion We will keep n.p.o. Monitor H&H Hypothyroid Continue sent Asthma Continue Advair Hyperlipidemia Continue statin History of IBS We will hold dicyclomine for now Recent right knee replacement Pain control with the Tylenol and oxycodone Will not give any NSAIDs Depression Continue Lexapro Plan/VTE VTE Prophylaxis Ordered?: Yes VS, I&O, 24H, Fishbone Vital Signs/I&O Vital Signs Date Time Temp Pulse Resp B/P (MAP) Pulse Ox O2 Delivery O2 Flow Rate FiO2 06/16/21 09:41 98.6 86 18 120/67 98 Nasal Cannula 2.0 I&O- Last 24 Hours up to 6 AM 06/16/21 06:00 Intake Total 2650 ml Balance 2650 ml Laboratory Data 24H LABS Laboratory Tests 2 06/15/21 19:33: Nucleated Red Blood Cells % (auto) 0.0, Anion Gap 9, Glomerular Filtration Rate > 60.0, Calcium Level 7.6L, Total Bilirubin 0.4, Direct Bilirubin 0.2, Aspartate Amino Transf (AST/SGOT) 14, Alanine Aminotransferase (ALT/SGPT) 15, Alkaline Phosphatase 62, Total Protein 4.5L, Albumin 2.0L, Albumin/Globulin Ratio 0.8L, Lipase 252 06/15/21 19:44: Prothrombin Time 13.8, Prothromb Time International Ratio 1.02, Activated Partial Thromboplast Time 28.2 06/15/21 21:15: Coronavirus (COVID-19)(PCR) NEGATIVE, Influenza Type A (RT-PCR) NEGATIVE, Influenza Type B (RT-PCR) NEGATIVE, Respiratory Syncytial Virus (PCR) NEGATIVE 06/16/21 01:17: Nucleated Red Blood Cells % (auto) 0.0 CBC/BMP Laboratory Tests 06/15/21 19:33 06/16/21 01:17 Ban Regalado MD Jun 16, 2021 11:12
[2021-06-16 17:12] LABS: HEMATOCRIT 32.7 % (36.0-47.0); HEMOGLOBIN 11.1 g/dl (12.0-15.5)
[2021-06-16] MEDS ORDERED: PROMETHAZINE INJ 25 MG/ML VIAL (J2550) IV ONE (20:35)
[2021-06-17] VITALS: BP 112/56
[2021-06-17 00:34] LABS: HEMOGLOBIN 10.6 g/dl (12.0-15.5)
[2021-06-17 04:00] VITALS: BP 113/55
[2021-06-17] MEDS: PANTOPRAZOLE SODIUM 40 MG in D5W MINI-BAG PLUS 50 ML IV SCH ×5 (05:26→20:26)
[2021-06-17] MEDS: LEVOTHYROXINE 50MCG TABLET (0.05MG) PO SCH (05:26)
[2021-06-17 05:50] LABS: HEMATOCRIT 34.7 % (36.0-47.0); HEMOGLOBIN 11.2 g/dl (12.0-15.5); MEAN CORPUSCULAR HEMOGLOBIN 31.1 pg (27.0-33.0); MEAN CORPUSCULAR HGB CONC 32.3 g/dl (32.0-36.5); MEAN CORPUSCULAR VOLUME 96.4 fl (80.0-96.0); PLATELET COUNT, AUTOMATED 273 10^3/uL (150-450); WHITE BLOOD COUNT 6.5 10^3/uL (4.0-10.0)
[2021-06-17 06:14] LABS: CALCIUM LEVEL 8.2 MG/DL (8.8-10.2); CREATININE FOR GFR 1.01 MG/DL (0.55-1.30); GLOMERULAR FILTRATION RATE 56.9 (>39); POTASSIUM SERUM 3.7 MEQ/L (3.5-5.1)
[2021-06-17] MEDS: ADVAIR HFA 115/21MCG INHALER INH SCH ×2 (07:40→20:00)
[2021-06-17 08:00] VITALS: BP 125/60
[2021-06-17] MEDS: SUCRALFATE 1 GM TAB PO SCH ×3 (08:12→20:26)
--- NOTE | 2021-06-17 10:15 | IPNPDOC ---
Subjective Date Seen The patient was seen on 06/17/21. Subjective Chief Complaint/HPI Feels well does not have any bowel movement overnight. Denied any abdominal pain. H&H has been stable. Objective Physical Examination General Exam: Positive: Alert, Cooperative, No Acute Distress Eye Exam: Positive: PERRLA, Conjunctiva & lids normal, EOMI; Negative: Sclera icteric Neck Exam: Positive: Supple; Negative: JVD, thyromegaly Chest Exam: Positive: Clear to auscultation, Normal air movement Heart Exam: Positive: Rate Normal, Regular Rhythm, Normal S1, Normal S2; Negative: Murmurs, Rubs Abdomen Exam: Positive: Normal bowel sounds, Soft, Tenderness (epigastric); Negative: Hepatospenomegaly Extremity Exam: Positive: Normal pulses; Negative: Clubbing, Cyanosis, Edema Psych Exam: Positive: Memory Intact, Oriented x 3 Assessment /Plan Assessment This is a 76-year-old female with past medical history of hypothyroid, GERD, IBS, asthma, depression, hyperlipidemia, obesity, status post knee replacement on 06/08/2021, who presents to ED via EMS following GI bleed and syncopal episode. She went to the bathroom and, after sitting on the toilet, found herself on the floor "covered in blood." She does not know how long she had passed out but that her gentleman friend who lives with her mediately called 911. She had soiled herself in black tarry stool and had also vomited blood whi le passed out. Denies hitting her head. Denies history of LOC, GI bleeds, blood transfusions. Of note, patient had elective right total knee replacement in [place] 06/08 which was uncomplicated. On 06/10, she began experiencing nausea with associated vomiting, diarrhea, abdominal pain. She was prescribed ASA, ibuprofen, Celebrex following her knee replacement. CT abdomen and pelvis shows cirrhotic liver without any splenomegaly, signs of possible duodenitis she was admitted for GI bleed and acute blood loss anemia. GI bleed with acute blood loss anemia Due to duodenal and gastric ulcers from porfirio use of NSAIDS and ASA. EGD showed Deep catered Duodenal ulcer 10mm and multiple superficial ulcers and erosions in the prepyloric region of stomach largest was [address] abdomen and pelvis shows cirrhotic liver and hepatic steatosis, No varices in EGD. Received 4 units of PRBC Will continue on PPI infusion Advance diet to liquids. Cirrhosis of Liver as per radiology No varices in EGD. Follow up with PMD for further work up of Cirrhosis of liver. Hypothyroid Continue synthroid Asthma Continue Advair Hyperlipidemia Continue statin History of IBS We will hold dicyclomine for now Recent right knee replacement Pain control with the Tylenol and oxycodone Will not give any NSAIDs PT Depression Continue Lexapro Plan/VTE VTE Prophylaxis Ordered?: Yes VS, I&O, 24H, Fishbone Vital Signs/I&O Vital Signs Date Time Temp Pulse Resp B/P (MAP) Pulse Ox O2 Delivery O2 Flow Rate FiO2 06/17/21 08:00 97.6 75 18 125/60 (81) 99 Room Air 06/17/21 04:00 2.0 I&O- Last 24 Hours up to 6 AM 06/17/21 05:59 Intake Total 1130 ml Output Total 250 ml Balance 880 ml Laboratory Data 24H LABS Laboratory Tests 2 06/16/21 11:05: Iron Level 61, Total Iron Binding Capacity 250, Transferrin % Saturation 24.4, Ferritin 163, Vitamin B12 Level 362, Folate 10.8 06/17/21 05:25: Nucleated Red Blood Cells % (auto) 0.0, Anion Gap 7L, Glomerular Filtration Rate 56.9, Calcium Level 8.2L CBC/BMP Laboratory Tests 06/16/21 11:05 06/16/21 16:54 06/17/21 00:22 06/17/21 05:25 Ban Regalado MD Jun 17, 2021 10:15
[2021-06-17 12:00] VITALS: BP 116/59
[2021-06-17] MEDS: ACETAMINOPHEN 500 MG TAB PO PRN ×2 (12:07→20:27)
[2021-06-17 12:32] LABS: HEMATOCRIT 34.4 % (36.0-47.0); HEMOGLOBIN 10.9 g/dl (12.0-15.5)
[2021-06-17 14:15] VITALS: BP 138/72
[2021-06-17 18:39] LABS: HEMATOCRIT 32.7 % (36.0-47.0); HEMOGLOBIN 10.6 g/dl (12.0-15.5)
[2021-06-17] MEDS: SIMVASTATIN 40 MG TAB PO SCH (20:26)
[2021-06-17] MEDS: ESCITALOPRAM OXALATE 10 MG TAB (LEXAPRO) PO SCH (20:26)
[2021-06-17 22:00] VITALS: BP 102/51
[2021-06-18] MEDS: PANTOPRAZOLE SODIUM 40 MG in D5W MINI-BAG PLUS 50 ML IV SCH ×3 (01:35→14:06)
[2021-06-18] MEDS: LEVOTHYROXINE 50MCG TABLET (0.05MG) PO SCH (06:32)
[2021-06-18 06:42] LABS: HEMATOCRIT 32.3 % (36.0-47.0); HEMOGLOBIN 10.5 g/dl (12.0-15.5); MEAN CORPUSCULAR HEMOGLOBIN 31.2 pg (27.0-33.0); MEAN CORPUSCULAR HGB CONC 32.5 g/dl (32.0-36.5); MEAN CORPUSCULAR VOLUME 95.8 fl (80.0-96.0); PLATELET COUNT, AUTOMATED 230 10^3/uL (150-450); RED BLOOD COUNT 3.37 10^6/uL (4.00-5.40); WHITE BLOOD COUNT 7.2 10^3/uL (4.0-10.0)
[2021-06-18 06:55] LABS: BLOOD UREA NITROGEN 10 MG/DL (7-18); CALCIUM LEVEL 7.9 MG/DL (8.8-10.2); CARBON DIOXIDE LEVEL 29 MEQ/L (21-32); CHLORIDE LEVEL 107 MEQ/L (98-107); CREATININE FOR GFR 0.74 MG/DL (0.55-1.30); GLOMERULAR FILTRATION RATE > 60.0 (>39); GLUCOSE, FASTING 103 MG/DL (70-100); POTASSIUM SERUM 3.6 MEQ/L (3.5-5.1); SODIUM LEVEL 140 MEQ/L (136-145)
[2021-06-18] MEDS ORDERED: SUCR1TA PO ×2 (07:57→11:55)
[2021-06-18] MEDS ORDERED: PANT40TA29 PO ×2 (07:57→11:55)
[2021-06-18] MEDS: ADVAIR HFA 115/21MCG INHALER INH SCH (08:14)
[2021-06-18] MEDS: SUCRALFATE 1 GM TAB PO SCH (09:31)
[2021-06-18] MEDS ORDERED: FUROSEMIDE 20MG/2ML VIAL (J1940) IV ONE (09:50)
--- NOTE | 2021-06-18 11:12 | DS.PDOC ---
Discharge Summary General Date of Admission Jun 15, 2021 at 23:48 Date of Discharge 06/18/21 Discharge Summary PROCEDURES PERFORMED DURING STAY: EGD: Findings: Non-severe esophagitis with no bleeding was found at the gastroesophageal junction. Fifteen non-bleeding superficial gastric ulcers with no stigmata of bleeding were found in the gastric antrum and in the prepyloric region of the stomach. The largest lesion was 10 mm in largest dimension. One non-bleeding cratered duodenal ulcer with no stigmata of bleeding was found in the first portion of the duodenum. The lesion was 10 mm in largest dimension. The second portion of the duodenum was normal. Impression: - Non-severe reflux esophagitis. - Non-bleeding gastric ulcers with no stigmata of bleeding. - Non-bleeding duodenal ulcer with no stigmata of bleeding. - Normal second portion of the duodenum. - No specimens collected. DISCHARGE DIAGNOSES: GIB Duodenal ulcer , gastric ulcers, Esophagitis Acute post hemorrhagic anemia Cirrhosis of Liver at per radiology SECONDARY DIAGNOSIS: Hypothyroid, GERD, IBS, asthma, depression, hyperlipidemia, obesity, status post knee replacement on 06/08/2021, Hiatal hernia COMPLICATIONS/CHIEF COMPLAINT: Peptic Ulcer Disease; Upper Gi Bleed. HOSPITAL COURSE: This is a 76-year-old female with past medical history of hypothyroid, GERD, IBS, asthma, depression, hyperlipidemia, obesity, status post knee replacement on 06/08/2021, who presents to ED via EMS following GI bleed and syncopal episode. She went to the bathroom and, after sitting on the toilet, found herself on the floor "covered in blood." She does not know how long she had passed out but that her gentleman friend who lives with her mediately called 911. She had soiled herself in black tarry stool and had also vomited blood while passed out. Denies hitting her head. Denies history of LOC, GI bleeds, blood transfusions. Of note, patient had elective right total knee replacement in [place] 06/08 which was uncomplicated. On 06/10, she began experiencing nausea with associated vomiting, diarrhea, abdominal pain. She was prescribed ASA, ibuprofen, Celebrex following her knee replacement. CT abdomen and pelvis shows cirrhotic liver without any splenomegaly, signs of possible duodenitis she was admitted for GI bleed and acute blood loss anemia. GI bleed with acute blood loss anemia Due to duodenal and gastric ulcers from porfirio use of NSAIDS and ASA. EGD showed Deep catered Duodenal ulcer 10mm and multiple superficial ulcers and erosions in the prepyloric region of stomach largest was [address] abdomen and pelvis shows cirrhotic liver and hepatic steatosis, No varices in EGD. Received 4 units of PRBC Will continue on PPI infusion Advance diet to liquids. Cirrhosis of Liver as per radiology No varices in EGD. Follow up with PMD for further work up of Cirrhosis of liver. Hypothyroid Continue synthroid Asthma Continue Advair Hyperlipidemia Continue statin History of IBS We will hold dicyclomine for now Recent right knee replacement Pain control with the Tylenol and oxycodone Will not give any NSAIDs PT Depression Continue Lexapro DISCHARGE MEDICATIONS: Please see below. ALLERGIES: Please see below. PHYSICAL EXAMINATION ON DISCHARGE: VITAL SIGNS: Please see below. General Exam: Positive: Alert, Cooperative, No Acute Distress Eye Exam: Positive: PERRLA, Conjunctiva & lids normal, EOMI; Negative: Sclera icteric Neck Exam: Positive: Supple; Negative: JVD, thyromegaly Chest Exam: Positive: Clear to auscultation, Normal air movement Heart Exam: Positive: Rate Normal, Regular Rhythm, Normal S1, Normal S2; Negative: Murmurs, Rubs Abdomen Exam: Positive: Normal bowel sounds, Soft, Tenderness (epigastric); Negative: Hepatosplenomegaly Extremity Exam: Positive: Normal pulses; Negative: Clubbing, Cyanosis, Edema Psych Exam: Positive: Memory Intact, Oriented x 3 LABORATORY DATA: Please see below. IMAGING: CT abd and pelvis: Liver: There is enlargement of the left and caudate lobes of the liver as well as a lobular surface contour of the liver. Findings may indicate the presence of cirrhosis in this patient with no reported history of chronic liver disease. Hepatic steatosis. No focal abnormality demonstrated. Gallbladder and bile ducts: Normal. No calcified stones. No ductal dilation. Pancreas: See "Stomach and bowel" finding. Otherwise unremarkable. Spleen: Normal. No splenomegaly. IMPRESSION: 1. Possible cirrhosis as described above. 2. A small hiatal hernia is present. 3. Inflammatory changes at the duodenal sweep may indicate acute duodenitis and less likely related to adjacent pancreatitis. 4. There has been a hysterectomy. 5. Mild diverticulosis is present in the distal colon. No diverticulitis. ACTIVITY: [As tolerated]. DIET: Soft diet DISCHARGE PLAN: Home DISCHARGE INSTRUCTIONS: PMD in 1 week DISCHARGE CONDITION: [Stable]. TIME SPENT ON DISCHARGE: 35 minutes. Vital Signs/I&Os Vital Signs Date Time Temp Pulse Resp B/P (MAP) Pulse Ox O2 Delivery O2 Flow Rate FiO2 06/17/21 22:00 98.5 69 18 102/51 (68) 94 Room Air 06/17/21 21:25 2.0 I&O- Last 24 Hours up to 6 AM 06/18/21 06:00 Intake Total 1380 ml Output Total 0 ml Balance 1380 ml Laboratory Data Labs 24H Laboratory Tests 2 06/18/21 06:04: Nucleated Red Blood Cells % (auto) 0.0, Anion Gap 4L, Glomerular Filtration Rate > 60.0, Calcium Level 7.9L CBC/BMP Laboratory Tests 06/17/21 12:06 06/17/21 18:01 06/18/21 06:04 Discharge Medications Scheduled Ascorbic Acid (Ascorbic Acid) 500 Mg Tablet, 500 MG PO DAILY, (Reported) Calcium Carbonate/Vitamin D3 (Calcium 500 mg-Vit D3 5 Mcg Tb) 500 Mg-200 Tablet, 1 EACH PO QHS, (Reported) Cyanocobalamin (Vitamin B-12) (Vitamin B-12) 500 Mcg Tablet, 500 MCG PO DAILY, (Reported) Escitalopram Oxalate (Lexapro) 20 Mg Tablet, 20 MG PO QHS, (Reported) Folic Acid (Folic Acid) 1 Mg Tablet, 1 MG PO DAILY, (Reported) Lactobacillus Rhamnosus GG (Culturelle) 1 Each Capsule, 1 CAP PO DAILY, (Reported) Levothyroxine Sodium (Synthroid) 50 Mcg Tab, 50 MCG PO DAILY, (Reported) Pantoprazole Sodium (Pantoprazole Sodium) 40 Mg Tablet.dr, 40 MG PO BID Salmeterol/Fluticasone (Advair 250-50 Diskus) 1 Each Blst.w.dev, 1 PUFF INH BID, (Reported) Simvastatin (Simvastatin) 40 Mg Tablet, 40 MG PO QHS, (Reported) Sucralfate (Sucralfate) 1 Gm Tablet, 1 GM PO TID before meals Scheduled PRN Acetaminophen (Tylenol Extra Strength) 500 Mg Tablet, 500 MG PO Q4H PRN for MODERATE PAIN (PS 5-7), (Reported) Albuterol Sulf (Albuterol Sulfate) 2.5 Mg/3 Ml Vial.neb, 2.5 MG INH QID PRN for SHORTNESS OF BREATH, (Reported) Albuterol Sulfate (Proair Hfa) 8.5 Gm Hfa.aer.ad, 2 PUFF INH Q4H PRN for SHORTNESS OF BREATH, (Reported) Dicyclomine HCl (Dicyclomine HCl) 10 Mg Capsule, 10 MG PO TID PRN for CRAMPS, (Reported) Ibuprofen (Ibuprofen) 200 Mg Tablet, 200 MG PO Q6H PRN for MILD PAIN (PS 1-4), (Reported) Meclizine HCl (Meclizine HCl) 25 Mg Tablet, 25 MG PO Q8H PRN for VERTIGO/DIZZINESS, (Reported) Ondansetron (Ondansetron Odt) 4 Mg Tab.rapdis, 4 MG PO Q4H PRN for NAUSEA, (Reported) Allergies Coded Allergies: No Known Drug Allergies (Verified Allergy, Unknown, 08/13/20) Ban Regalado MD Jun 18, 2021 11:12
== END 2021-06-18 14:30 | disposition home or self-care (01) | DRG 813 ==
LOC: M ED 19:10 → M ED INP 23:48 → ENRESERV 06-16 08:05 → M PCU 06-16 09:57 → M MS5PR 06-17 14:12
PROVIDERS: ADMIT Family Medicine; ATTEND Internal Medicine Nephrology
PROC: 30233N1 Transfusion of Nonautologous Red Blood Cells into Peripheral Vein, Percutaneous Approach (ICD-10-PCS; 2021-06-15)
PROC: 0DJ08ZZ Inspection of Upper Intestinal Tract, Via Natural or Artificial Opening Endoscopic (ICD-10-PCS; principal; 2021-06-16 15:00)
DX: D68.32 Hemorrhagic disorder due to extrinsic circulating anticoagulants (principal); K92.1 Melena; D62 Acute posthemorrhagic anemia; R55 Syncope and collapse; K21.00 Gastro-esophageal reflux disease with esophagitis, without bleeding; K58.9 Irritable bowel syndrome, unspecified; E03.9 Hypothyroidism, unspecified; J45.909 Unspecified asthma, uncomplicated; F32.A Depression, unspecified; K76.0 Fatty (change of) liver, not elsewhere classified; K74.60 Unspecified cirrhosis of liver; K25.9 Gastric ulcer, unspecified as acute or chronic, without hemorrhage or perforation; K26.9 Duodenal ulcer, unspecified as acute or chronic, without hemorrhage or perforation; E78.5 Hyperlipidemia, unspecified; E66.9 Obesity, unspecified; Z96.651 Presence of right artificial knee joint; Z20.822 Contact with and (suspected) exposure to COVID-19; Z79.899 Other long term (current) drug therapy; Z68.34 Body mass index [BMI] 34.0-34.9, adult

== ENCOUNTER → 2021-06-19 | Outpatient (REF) | payer MEDICARE, OTHER ==
[~2021-06-19] MED LIST changes: +ACET-897 PO; +ALBU83IN INH; +DICY1CAP8 PO; +FOLI1TAB11 PO; +IBUP-1720 PO; +LEXA1TAB2 PO; +ONDA4TAB6 PO; +PANT40TA29 PO; +PROAAER10 INH; +SIMV40TA20 PO; +SUCR1TA PO; +VITA500T41 PO
== END ==
LOC: M LAB REF 16:37
PROVIDERS: ATTEND Registered Nurse
DX: L03.114 Cellulitis of left upper limb (principal)

== ENCOUNTER → 2021-06-19 | Outpatient (CLI) | payer MEDICARE, OTHER ==
--- NOTE | 2021-06-19 16:42 | REP ---
INDICATION: PIAN LEFT ARM COMPARISON: None. TECHNIQUE: Real time compression and duplex Doppler evaluation of the Left upper extremity deep venous system is performed. FINDINGS: The Left subclavian, jugular, axillary, brachial, and basilic veins are fully compressible where accessible with transducer pressure, and demonstrate no intraluminal thrombus and normal venous waveforms. There is partial nonocclusive thrombus in the left cephalic vein centrally. There is occlusive thrombus in the mid to distal left cephalic vein..The Right subclavian vein is fully compressible where accessible with transducer pressure, and demonstrates no intraluminal thrombus and normal venous waveforms. IMPRESSION: No evidence of deep venous thrombosis of the Left upper extremity deep vein system. There is nonocclusive thrombus in the proximal left cephalic vein, with occlusive thrombus in the mid to distal left cephalic vein. <Electronically signed by James Hurd > 06/19/21 [id number]
== END ==
LOC: M RAD 15:47
PROVIDERS: ATTEND Registered Nurse
DX: M79.602 Pain in left arm (principal); L03.114 Cellulitis of left upper limb

== ENCOUNTER → 2021-06-29 | Outpatient (REF) | payer MEDICARE, OTHER ==
[2021-06-29 17:09] LABS: INR 0.93; PROTHROMBIN TIME 12.9 SECONDS (12.7-14.5)
== END ==
LOC: M LAB REF 16:21
PROVIDERS: ATTEND Internal Medicine
DX: L03.114 Cellulitis of left upper limb (principal); Z79.01 Long term (current) use of anticoagulants

== ENCOUNTER → 2021-08-03 | Outpatient (REF) | payer MEDICARE, OTHER | LOC: M LAB REF 10:59 | PROVIDERS: ATTEND Internal Medicine | DX: K25.0 Acute gastric ulcer with hemorrhage (principal); K26.0 Acute duodenal ulcer with hemorrhage ==

== ENCOUNTER → 2021-10-22 | Outpatient (CLI) | payer MEDICARE, OTHER | LOC: M WHC 09:19 | PROVIDERS: ATTEND Registered Nurse | DX: Z12.31 Encounter for screening mammogram for malignant neoplasm of breast (principal) ==

== ENCOUNTER → 2022-04-07 | Outpatient (RCR) | payer MEDICARE, OTHER ==
[~2022-04-07] MED LIST changes: +ALBU2.5V10 INH; -ALBU83IN INH
== END ==
LOC: M PT 11:12
PROVIDERS: ATTEND Physician Assistant Medical
DX: M26.629 Arthralgia of temporomandibular joint, unspecified side (principal)

== ENCOUNTER 2022-05-05 10:45 | Outpatient (RCR) | payer MEDICARE, OTHER | END 2022-05-07 | LOC: M PT 10:45 | PROVIDERS: ATTEND Physician Assistant Medical | DX: M26.629 Arthralgia of temporomandibular joint, unspecified side (principal) ==

== ENCOUNTER 2022-05-12 10:41 | Outpatient (RCR) | payer MEDICARE, OTHER | END 2022-06-07 | LOC: M PT 10:41 | PROVIDERS: ATTEND Physician Assistant Medical | DX: M26.629 Arthralgia of temporomandibular joint, unspecified side (principal) ==

== ENCOUNTER → 2022-06-02 | Outpatient (REF) | payer MEDICARE, OTHER ==
[2022-06-02 16:12] LABS: PERCENT SATURATION 24.7 % (13.2-45.0)
== END ==
LOC: M LAB REF 12:07
PROVIDERS: ATTEND Internal Medicine
DX: Z01.818 Encounter for other preprocedural examination (principal); D50.9 Iron deficiency anemia, unspecified

== ENCOUNTER → 2022-06-09 | Outpatient (REF) | payer MEDICARE, OTHER ==
[2022-06-09 13:00] LABS: APPEARANCE, URINE MANUAL CLOUDY (CLEAR); BILIRUBIN, URINE MANUAL NEGATIVE (NEGATIVE); BLOOD URINE MANUAL NEGATIVE (NEGATIVE); COLOR, URINE MANUAL YELLOW (YELLOW); GLUCOSE, URINE (UA) MANUAL NEGATIVE (NEGATIVE); KETONE, URINE MANUAL NEGATIVE (NEGATIVE); LEUKOCYTE ESTERASE, URINE MAN POSITIVE (NEGATIVE); NITRITE, URINE MANUAL NEGATIVE (NEGATIVE); PROTEIN, URINE MANUAL NEGATIVE (NEGATIVE); SPECIFIC GRAVITY,URINE MANUAL 1.025 (1.002-1.035); UROBILINOGEN, URINE MANUAL NORMAL (NORMAL)
[2022-06-09 13:12] LABS: BACTERIA, URINE SMALL AMOUNT; CALCIUM OXALATE CRYSTALS,URINE SMALL AMOUNT /hpf; HYALINE CAST, URINE NONE SEEN /lpf (0-1); RBC, URINE 0-1 /hpf (0-3); SQUAMOUS EPITHELIAL CELL URINE MOD AMOUNT /hpf (SMALL AMT); WBC, URINE 0-1 /hpf (0-3)
[2022-06-09 13:13] LABS: AMORPHOUS SEDIMENT, URINE LARGE AMOUNT (NEGATIVE); MUCUS, URINE SMALL AMOUNT (NEGATIVE)
== END ==
LOC: M LAB REF 12:01
PROVIDERS: ATTEND Internal Medicine
DX: Z01.818 Encounter for other preprocedural examination (principal)

== ENCOUNTER → 2022-08-17 | Outpatient (CLI) | payer MEDICARE, OTHER | LOC: M WHC 07:34 | PROVIDERS: ATTEND Registered Nurse | DX: Z12.31 Encounter for screening mammogram for malignant neoplasm of breast (principal); M81.0 Age-related osteoporosis without current pathological fracture ==

== ENCOUNTER → 2022-09-13 | Outpatient (REF) | payer MEDICARE, OTHER ==
[2022-09-13 16:58] LABS: VITAMIN B12 LEVEL > 2000 PG/ML (211-911)
[2022-09-14 12:00] LABS: C REACTIVE PROTEIN QUANTITATIV < 0.40 MG/DL (<1.0)
[2022-09-14 12:03] LABS: FERRITIN 15.3 NG/ML (7.3-270.7)
== END ==
LOC: M LAB REF 16:21
PROVIDERS: ATTEND Internal Medicine
DX: D72.819 Decreased white blood cell count, unspecified (principal); R53.83 Other fatigue; R42 Dizziness and giddiness

== ENCOUNTER → 2022-09-23 | Outpatient (REF) | payer MEDICARE, OTHER ==
[2022-09-23 11:27] LABS: RHEUMATOID FACTOR QUANT 5.1 IU/ML (<14)
[2022-09-23 11:47] LABS: HEPATITIS B SURFACE ANTIGEN NEGATIVE (NEGATIVE)
[2022-09-23 13:06] LABS: HEPATITIS B CORE ANTIBODY IGM NEGATIVE (NEGATIVE)
[2022-09-24 12:08] LABS: ANTINUCLEAR ANTIBODIES DIRECT Negative (Negative)
== END ==
LOC: M LAB REF 10:31
PROVIDERS: ATTEND Internal Medicine
DX: M19.90 Unspecified osteoarthritis, unspecified site (principal); D72.9 Disorder of white blood cells, unspecified

== ENCOUNTER → 2022-10-18 | Outpatient (REF) | payer MEDICARE, OTHER ==
[~2022-10-18] MED LIST changes: +ALBU8.5H INH
== END ==
LOC: M LAB REF 11:54
PROVIDERS: ATTEND Internal Medicine
DX: D72.819 Decreased white blood cell count, unspecified (principal); K74.69 Other cirrhosis of liver

== ENCOUNTER → 2022-10-25 | Outpatient (CLI) | payer MEDICARE, OTHER ==
[~2022-10-25] MED LIST changes: +GASTROGRAFIN SOLUTION 30ML As Ordered ONE; +ISOVUE-370 76% 100ML VIAL As Ordered ONE
== END ==
LOC: M RAD 12:35
PROVIDERS: ATTEND Specialist
DX: K74.60 Unspecified cirrhosis of liver (principal); Z12.31 Encounter for screening mammogram for malignant neoplasm of breast
CPT/HCPCS: 74177; 77063; 77067; Q9963; Q9967

== ENCOUNTER → 2022-10-25 | Outpatient (CLI) | payer MEDICARE, OTHER ==
[~2022-10-25] MED LIST changes: -GASTROGRAFIN SOLUTION 30ML As Ordered ONE; -ISOVUE-370 76% 100ML VIAL As Ordered ONE
== END ==
LOC: M WHC 11:33
PROVIDERS: ATTEND Registered Nurse
DX: Z12.31 Encounter for screening mammogram for malignant neoplasm of breast (principal)

== ENCOUNTER 2023-06-03 00:08 | Emergency (ER) | payer MEDICARE, OTHER ==
[~2023-06-03] VITALS: Ht 160 cm; Wt 85.0 kg
[~2023-06-03 00:08] MED LIST changes: +DICY-61; -DICY10CA13; +VITA500C24 PO
[2023-06-03 01:47] LABS: APPEARANCE, URINE CLEAR (CLEAR); BACTERIA, URINE AUTO NEGATIVE (NEGATIVE); BILIRUBIN, URINE AUTO NEGATIVE (NEGATIVE); BLOOD, URINE BLOOD NEGATIVE (NEGATIVE); COLOR, URINE YELLOW (YELLOW); GLUCOSE, URINE (UA) AUTO NEGATIVE (NEGATIVE); KETONE, URINE AUTO 1+ mg/dL (NEGATIVE); LEUKOCYTE ESTERASE, URINE AUTO 1+ (NEGATIVE); NITRITE, URINE AUTO NEGATIVE (NEGATIVE); PROTEIN, URINE AUTO NEGATIVE (NEGATIVE); RBC, URINE AUTO 1 /HPF (0-3); SPECIFIC GRAVITY URINE AUTO 1.019 (1.002-1.035); SQUAMOUS EPITHELIAL CELL UR AU 2 /HPF (0-6); UROBILINOGEN, URINE AUTO 0.2 mg/dL (0.0-2.0); WBC, URINE AUTO 3 /HPF (0-3)
[2023-06-03 01:49] LABS: BASO % 0.8 % (0.0-1.0); EOS # 0.1 10^3/uL (0.0-0.5); EOS % 1.9 % (0.0-3.0); HEMATOCRIT 42.8 % (36.0-47.0); HEMOGLOBIN 14.3 g/dl (12.0-15.5); LYMPH # 0.7 10^3/uL (1.5-5.0); LYMPH % 18.4 % (24.0-44.0); MEAN CORPUSCULAR HEMOGLOBIN 30.8 pg (27.0-33.0); MEAN CORPUSCULAR HGB CONC 33.4 g/dl (32.0-36.5); MONO # 0.4 10^3/uL (0.0-0.8); MONO % 10.1 % (2.0-8.0); NEUTROPHILS # 2.6 10^3/uL (1.5-8.5); NEUTROPHILS % 68.5 % (36.0-66.0); PLATELET COUNT, AUTOMATED 171 10^3/uL (150-450); RED BLOOD COUNT 4.65 10^6/uL (4.00-5.40); WHITE BLOOD COUNT 3.8 10^3/uL (4.0-10.0)
[2023-06-03 02:10] LABS: BLOOD UREA NITROGEN 12 MG/DL (9-23); CALCIUM LEVEL 9.2 MG/DL (8.3-10.6); CARBON DIOXIDE LEVEL 30 MMOL/L (20-31); CHLORIDE LEVEL 103 MMOL/L (98-107); CK-MB VALUE MASS < 1.0 NG/ML (<3.6); CPK CREATINE PHOSPHOKINASE 75 U/L (34-145); CREATININE FOR GFR 0.79 MG/DL (0.55-1.30); GLOMERULAR FILTRATION RATE > 60.0 (>39); GLUCOSE, FASTING 108 MG/DL (74-106); MB/CK RELATIVE INDEX 1.33 (< OR =4); POTASSIUM SERUM 3.8 MMOL/L (3.5-5.1); SODIUM LEVEL 142 MMOL/L (136-145)
[2023-06-03] MEDS ORDERED: LISI5TAB11 PO (06:33)
[2023-06-03 06:41] VITALS: BP 164/94; TEMP 98.7; O2SAT 98
== END 2023-06-03 06:44 | disposition home or self-care (01) ==
LOC: M ED 00:08
DX: I10 Essential (primary) hypertension (principal); E03.9 Hypothyroidism, unspecified; E78.5 Hyperlipidemia, unspecified; K21.9 Gastro-esophageal reflux disease without esophagitis; J45.909 Unspecified asthma, uncomplicated; Z87.11 Personal history of peptic ulcer disease; Z79.899 Other long term (current) drug therapy; Z88.6 Allergy status to analgesic agent

== ENCOUNTER → 2023-09-14 | Outpatient (CLI) | payer MEDICARE, OTHER ==
[~2023-09-14] MED LIST changes: +LISI5TAB11 PO
== END ==
LOC: M WUC 15:57
PROVIDERS: ATTEND Internal Medicine
DX: R05.9 Cough, unspecified (principal)

== ENCOUNTER → 2023-12-01 | Outpatient (CLI) | payer MEDICARE, OTHER | LOC: M WHC 09:48 | PROVIDERS: ATTEND Internal Medicine | DX: Z12.31 Encounter for screening mammogram for malignant neoplasm of breast (principal) ==

== ENCOUNTER 2024-08-07 12:36 | Emergency (ER) | payer MEDICARE, OTHER ==
[~2024-08-07] VITALS: Ht 157.5 cm; Wt 82.2 kg
[~2024-08-07 12:36] MED LIST changes: -ADV250INH INH; +ADVA1AER9 INH; +ONDA-282 PO; -ONDA4TAB6 PO
[2024-08-07 17:36] LABS: HEMATOCRIT 44.9 % (36.0-47.0); HEMOGLOBIN 15.2 g/dl (12.0-15.5); LYMPH # 0.4 10^3/uL (1.5-5.0); LYMPH % 6.2 % (24.0-44.0); MEAN CORPUSCULAR HEMOGLOBIN 30.7 pg (27.0-33.0); MEAN CORPUSCULAR HGB CONC 33.9 g/dl (32.0-36.5); MEAN CORPUSCULAR VOLUME 90.7 fl (80.0-96.0); MONO # 0.1 10^3/uL (0.0-0.8); MONO % 1.2 % (2.0-8.0); NEUTROPHILS # 5.9 10^3/uL (1.5-8.5); NEUTROPHILS % 92.3 % (36.0-66.0); PLATELET COUNT, AUTOMATED 227 10^3/uL (150-450); RED BLOOD COUNT 4.95 10^6/uL (4.00-5.40); WHITE BLOOD COUNT 6.4 10^3/uL (4.0-10.0)
[2024-08-07 17:49] LABS: APPEARANCE, URINE CLEAR (CLEAR); BACTERIA, URINE AUTO NEGATIVE (NEGATIVE); BILIRUBIN, URINE AUTO NEGATIVE (NEGATIVE); BLOOD, URINE BLOOD NEGATIVE (NEGATIVE); COLOR, URINE YELLOW (YELLOW); GLUCOSE, URINE (UA) AUTO NEGATIVE (NEGATIVE); KETONE, URINE AUTO 1+ mg/dL (NEGATIVE); LEUKOCYTE ESTERASE, URINE AUTO NEGATIVE (NEGATIVE); NITRITE, URINE AUTO NEGATIVE (NEGATIVE); PROTEIN, URINE AUTO NEGATIVE (NEGATIVE); RBC, URINE AUTO 0 /HPF (0-3); SPECIFIC GRAVITY URINE AUTO 1.012 (1.002-1.035); SQUAMOUS EPITHELIAL CELL UR AU 0 /HPF (0-6); UROBILINOGEN, URINE AUTO 0.2 mg/dL (0.0-2.0); WBC, URINE AUTO 0 /HPF (0-3)
[2024-08-07 18:06] LABS: BLOOD UREA NITROGEN 13 MG/DL (9-23); CALCIUM LEVEL 9.7 MG/DL (8.3-10.6); CARBON DIOXIDE LEVEL 25 MMOL/L (20-31); CHLORIDE LEVEL 103 MMOL/L (98-107); CK-MB VALUE MASS < 1.0 NG/ML (<3.6); CREATININE FOR GFR 0.73 MG/DL (0.55-1.30); GLOMERULAR FILTRATION RATE > 60.0 (>39); GLUCOSE, FASTING 122 MG/DL (74-106); POTASSIUM SERUM 4.1 MMOL/L (3.5-5.1); SODIUM LEVEL 140 MMOL/L (136-145)
[2024-08-07 18:09] LABS: CPK CREATINE PHOSPHOKINASE 76 U/L (34-145); MB/CK RELATIVE INDEX 1.31 (< OR =4); THYROID STIMULATING HORMONE 0.952 uIU/ML (0.55-4.78)
[2024-08-07 18:31] LABS: LIPASE 34 U/L (12-53)
[2024-08-07 18:33] LABS: ALKALINE PHOSPHATASE 86 U/L (35-104); ALT/SGPT 19 U/L (7.0-40); AST/SGOT 25 U/L (<34); BILIRUBIN,DIRECT 0.2 MG/DL (<0.4); BILIRUBIN,TOTAL 0.6 MG/DL (0.3-1.2); TOTAL PROTEIN 7.6 G/DL (5.7-8.2)
[2024-08-07] MEDS ORDERED: ISOVUE-370 76% 100ML VIAL As Ordered ONE (18:54)
[2024-08-07] MEDS: ACETAMINOPHEN *IV* 1,000 MG in IV 1 EA IV ONE (19:04)
[2024-08-07] MEDS ORDERED: CARA1TAB6 PO (19:54)
[2024-08-07 20:00] VITALS: BP 145/66; TEMP 98.2; O2SAT 97
== END 2024-08-07 20:18 | disposition home or self-care (01) ==
LOC: M ED 12:36
DX: R19.7 Diarrhea, unspecified (principal); R10.84 Generalized abdominal pain; T88.7XXA Unspecified adverse effect of drug or medicament, initial encounter; E03.9 Hypothyroidism, unspecified; I10 Essential (primary) hypertension; F32.A Depression, unspecified; G51.0 Bell's palsy; K58.9 Irritable bowel syndrome, unspecified; Z88.8 Allergy status to other drugs, medicaments and biological substances; Z79.1 Long term (current) use of non-steroidal anti-inflammatories (NSAID); Z79.51 Long term (current) use of inhaled steroids; Z79.899 Other long term (current) drug therapy
CPT/HCPCS: 74177; 80048; 80076; 81001; 82550; 82553; 83690; 84443; 84484; 85025; 87486; 87581; 87633; 87798; 93005; 96374; 99284; J0131; Q9967

== ENCOUNTER → 2024-12-10 | Outpatient (CLI) | payer MEDICARE, OTHER ==
[~2024-12-10] MED LIST changes: +CARA1TAB6 PO
== END ==
LOC: M WHC 13:50
PROVIDERS: ATTEND Internal Medicine
DX: M81.0 Age-related osteoporosis without current pathological fracture (principal); Z12.31 Encounter for screening mammogram for malignant neoplasm of breast